=== PATIENT | female | born 1935 | race Caucasian/White ===

== ENCOUNTER → 2024-01-06 14:52 | Outpatient (REF) | payer OTHER, SELFPAY | LOC: RAD 14:52 | PROVIDERS: ATTENDING PHYSICIAN Internal Medicine Cardiovascular Disease; FAMILY PHYSICIAN Family Medicine | DX: Z79.899 Other long term (current) drug therapy (principal) | CPT/HCPCS: 71046 ==

== ENCOUNTER 2024-05-29 19:21 | Inpatient (IN) | payer OTHER, SELFPAY ==
[2024-05-29 13:32] VITALS: BP 120/56
[2024-05-29 16:21] LABS: % Immature Granulocytes 0.4 % (0-0.5); % Lymphocytes 22.8 % (20.5-51.1); % Monocytes 9.8 % (1.7-9.3); Absolute Basophils 0.1 10^3/uL (0-0.2); Absolute Eosinophils 0.1 10^3/uL (0-0.7); Absolute Lymphocytes 1.9 10^3/uL (1.2-3.4); Absolute Monocytes 0.8 10^3/uL (0.1-0.6); Absolute Neutrophils 5.4 10^3/uL (1.4-6.5); Hematocrit 40.1 % (37.0-47.0); Hemoglobin 13.5 g/dL (12.0-16.0); Mean Corp Hgb Conc. 33.7 g/dL (33.0-37.0); Mean Corpuscular Hgb 30.7 pg (27.0-31.0); Mean Corpuscular Volume 91.1 fL (81.0-99.0); Mean Platelet Volume 9.2 fL (7.4-10.4); Nucleated Red Blood Cells % 0 %; Platelet Count 278 10^3/uL (130-400); Red Cell Dist. Width 13.2 % (11.5-14.5); White Blood Cell Count 8.3 10^3/uL (4.8-10.8)
[2024-05-29 16:31] LABS: ALT (SGPT) 23 U/L (0-35); AST (SGOT) 30 U/L (14-36); Albumin 4.3 g/dl (3.5-5.0); Alkaline Phosphatase 86 U/L (38-126); Blood Urea Nitrogen 14 mg/dl (7-17); Calcium 9.4 mg/dl (8.4-10.2); Carbon Dioxide 29 mmol/L (22-30); Chloride 99 mmol/L (98-107); Estimated Creatinine Clearance 43 ml/min; Glucose 99 mg/dl (70-99); Potassium 4.6 mmol/L (3.5-5.1); Sodium 138 mmol/L (135-145); Total Bilirubin 0.6 mg/dl (0.2-1.3); Total Protein 6.8 g/dl (6.3-8.2); eGFR > 60.00
[2024-05-29 16:49] LABS: Urine Albumin Trace (Neg - Trace); Urine Bilirubin 1+ (Negative); Urine Character Clear (Clear); Urine Color Amber; Urine Glucose Negative (Negative); Urine Ketone Trace (Negative); Urine Leukocyte Trace (Negative); Urine Nitrite Negative (Negative); Urine Occult Blood Negative (Negative); Urine Specific Gravity 1.025 (<1.030); Urine Urobilinogen 2+ (Neg - 1+)
--- NOTE | 2024-05-29 17:34 | ED.GENMED ---
History of Present Illness
General
Chief Complaint: Change in Mental Status
Source: patient
Exam Limitations: none
Time Seen by Provider: 05/29/24 15:52
Nursing documentation reviewed up to this point in time: agreed with
History of Present Illness
History of Present Illness:
Patient with history of dementia, presents to ED from home, secondary to increased confusion along with poor oral intake. Patient denies headache. Denies coughing. Denies chest pain. Denies sore throat. Denies nausea, vomiting, or diarrhea.
Denies shortness of breath. Secondary to patient's worsening overall symptoms, family, has been discussing about actively pursuing long-term care assistance. Patient has not seen neurologist for some period of time, as her previous neurologist had
required COVID vaccination, which patient had refused.
Past History
Past History
ED Past Medical History: Arrthythmia and HTN
ED Past Surgical History: Gynecological and Orthopedic
Social History
Tobacco: Non-smoker
Living: with family
Employment: Retired
Review of Systems
Review of Systems
Allergies reviewed?: Yes
All Other Systems: ROS reviewed and negative except as documented in HPI and ROS
Constitutional: Reports no symptoms
EENT: Reports no symptoms
Respiratory: Reports no symptoms
Cardiac: Reports no symptoms
ABD/GI: Reports no symptoms
: Reports no symptoms
Musculoskeletal: Reports no symptoms
Skin: Reports no symptoms
Neurological: Reports weakness and other (confusion)
Phy Exam
Physical Exam
Physical Exam:
Physical Exam
General: no apparent distress, not acutely ill. afebrile
Head: nc/at. eomi
Neck: supple. no meningeal signs.
Heart: s1/s2 regular rate and rhythm, no murmur. equal radial pulses.
Lungs: no acute respiratory distress. clear bilaterally
Abdomen: normal bowel sounds. not tender
Neuro: alert and oriented x 2. no focal neurological deficits
Skin: no rash
Psychiatric: well kept. interactive and cooperative
Extremities: no edema. no calf tenderness.
Course
Orders/Labs/Results
Orders:
Orders
05/29/24 Lunch
Regular
At Your Request: Limited Participation
05/29/24 13:37
Electrocardiogram (*1) Urgent
Reason for Study: Fatigue / Weakness
Other Reason for Exam: change in mental status
05/29/24 13:38
EKG- Treatment ONCE
05/29/24 16:08
Complete Blood Count/With Diff Urgent
Comprehensive Metabolic Panel Urgent
Glycohemoglobin (HgbA1c) Urgent
Lyme Progressive Urgent
Comment: ADD ON
NT-proBNP Urgent
Comment: ADD ON
Syphilis/T. pallidum Ab Reflex Urgent
Comment: ADD ON
TSH Urgent
Comment: ADD ON
Urinalysis Reflex To Culture Urgent
Date Specimen was Collected: 05/29/24
Time Specimen was Collected: 15:53
Urine Microscopic Reflex Cult Urgent
Urine Culture Urgent
STEVEN Source: U
Specimen Description:
Date Specimen was Collected: 05/29/24
Time Specimen was Collected: 15:53
Comment: ADD ON
05/29/24 16:36
Case Management Consult ONCE
Case Management Consult: Discharge Planning
Physical Therapy Consult [Pt Eval And Treat] Urgent
Activity Level: As Tolerated
05/29/24 17:56
Add On- LAB Urgent
Tests Added?: TSH, syphilis screen, lyme screen
CT Head W/o Iv Contrast Urgent
Comment:
Reason For Exam: AMS
05/29/24 17:57
CR Chest - 2 Views Urgent
Comment:
Reason For Exam: AMS
05/29/24 18:00
0.9% Sodium Chloride 500 ml [Nss] 500 ml IV 100 mls/hr
05/29/24 18:08
Add On- LAB Routine
Tests Added?: nt-proBNP
05/29/24 18:20
COVID-19 Antigen Stat
Source: Nasal Swab
05/29/24 18:26
Admit/Transfer Patient As Directed
Co-Sign Provider:
Level of Care: Inpatient admission
Assign to:: Medical/Surgical
Physician / Group: Hospitalist
Diagnosis: Worsening dementia
Reason for Hospitalization: Worsening dementia
Expected length of stay greater than two midnights?: Yes
ELOS- Estimated Length of Stay in days: 2
I certify the patient meets the requirements for IP care: Yes
PRN Pain Medication Management As Directed
May give lesser potent ordered pain med per pt: Yes
preference::
Protocol:: Medication orders for pain may be administered in a
manner that supports deferring to patient preference
when the pt is:
- Requesting an ordered lesser potent pain medication.
Least to most potent pain medications are defined
as: acetaminophen < NSAID < tramadol < opioids
(morphine, oxycodone, hydromorphone).
- Requesting a lesser dose of the same medication IF
ORDERED.
- Requesting a less intrusive route of administration
if both routes are prescribed by the provider (PO <
IV).
05/29/24 18:30
Code Status As Directed
Resuscitation Status: Do not resuscitate
Reached after discussion with pt or family/Healthcare POA: Yes
Based on pt advanced directive or healthcare POA form: Yes
DNR Bracelet Application ONCE
05/29/24 19:51
Acetaminophen [Tylenol] 650 mg PO Q4HPRN PRN
Bisacodyl [Dulcolax] 10 mg RECTAL [id number] PRN
Docusate W/Senna [Senokot-S] 1 tablet PO BIDPRN PRN
Polyethylene Glycol Powder [Miralax] 17 grams PO DAILYPRN PRN
Tramadol HCl [Ultram] 25 mg PO Q8HPRN PRN
05/29/24 19:51
Add On - Microbiology Routine
Tests Added?: Urine culture
Add On- LAB Routine
Tests Added?: HgbA1c
Case Management Consult ONCE
Case Management Consult: Discharge Planning
PSYCHIATRY CONSULT Routine
Consulting Provider: Chaparrita Callaway
Was physician already notified: Yes
Reason for consult: hallucinations
Activity As Directed
Activity Level: Out of Bed-Early Mobility
Vital Signs As Directed
Frequency: Per unit guidelines
Ot Eval And Treat Routine
Pt Eval And Treat Routine
Activity Level: Out of Bed-Early Mobility
DX Deep Vein Thrombosis Video Routine
05/29/24 21:00
Apixaban [Eliquis] 2.5 mg PO BID
05/29/24 22:00
CefTRIAXone [Rocephin] 1,000 mg IV Q24H
05/30/24 08:00
Amiodarone [Pacerone] 100 mg PO DAILY
Metoprolol Xl [Toprol Xl] 50 mg PO DAILY
05/30/24 18:00
Atorvastatin [Lipitor] 10 mg PO QPM
Enoxaparin Sodium [Lovenox] 40 mg SC QPM
Abnormal Lab Results
05/29/24
16:08
Absolute Monos (auto) 0.8 H 10^3/uL
(0.1-0.6)
Monocytes % 9.8 H %
(1.7-9.3)
Urine Ketones Trace A
(Negative)
Urine Bilirubin 1+ A
(Negative)
Urine Urobilinogen 2+ A
(Neg - 1+)
Leukocyte Esterase Rfl Trace A
(Negative)
05/29/24 16:08
05/29/24 16:08
Vital Signs
Initial and Last Documented VS:
Initial Vital Signs
Temp Pulse Resp BP Pulse Ox
98.1 F 52 18 120/56 98
05/29/24 13:32 05/29/24 13:32 05/29/24 13:32 05/29/24 13:32 05/29/24 13:32
Last Documented Vital Signs
Temp Pulse Resp BP Pulse Ox
98.3 F 106 18 133/92 96
05/30/24 15:35 05/30/24 18:23 05/30/24 15:35 05/30/24 18:23 05/30/24 18:23
MDM/Problems Addressed
MDM/Problems Addressed:
History and exam consistent with generalized weakness with fusion, likely multifactorial, including underlying dementia as well as dehydration. Ultimately, however, patient will require transition to long-term assisted care.
*Critical Care Note
Total Time (30-74mins, 75-104mins- exclusive of procedures): Not Applicable
ED Attending Note
-
Portions of this chart may have been created with voice recognition software.� Occasional wrong word or��sound alike� substitutions may have occurred due to the inherent limitations of voice recognition software.
Discharge Plan
Departure
Patient Disposition: Admit
Date of Disposition: 05/29/24
Time of Disposition: 17:53
Admit to: Med/Surg
Presentation/result/management discussed w/ accepting MD/DO: Hospitalist
Discharge Problem:
Weakness, Dehydration
Interventions
Interventions:
*Risk Screen - Suicide Last Done: 05/29/24 16:28
*General Assessment Last Done: 05/29/24 16:28
*Neglect/Abuse Screening Last Done: 05/29/24 16:28
*ED COVID-19 Vaccine History Last Done: 05/29/24 16:28
*Nursing Disposition Last Done: 05/29/24 19:47
ED- Neurological Assessment Last Done: 05/29/24 16:26
ED Swallowing Screen Last Done: 05/29/24 16:26
Discharge Date and Time
Discharge Date/Time: 05/29/24 19:48
--- NOTE | 2024-05-29 17:37 | CM ---
CM met with patient and granddaughter in room. CM confirmed that patient lives with daughter who works multimedia programmer. Patient granddaughter further offers support. Patient's granddaughter works as at OT at [facility] and would prefer to have patient
placed in [facility] STR with transition to LTC. Granddaughter stated that she would also be agreeable to [facility]. Patient is agreeable to plan.
As per granddaughter, family has been working on applying for Medicaid and has had LTC discussions with Rochel[facility] at [facility].
CM sent referrals to [facility] and [facility].
PLAN: STR pending PT evaluation,
[2024-05-29 18:01] LABS: Urine Mucus Moderate; Urine Red Blood Cell 0-2 /HPF (0-2); Urine Squamous Cell 16-20 /LPF (Few)
[2024-05-29 18:28] VITALS: BP 164/83
--- NOTE | 2024-05-29 18:34 | HPS.HSE ---
Family Physician
-
Family Physician: Ho Olson
Chief Complaint
-
ambulatory and cognitive decline
History of Present Illness
88yo F with PMHx of afib on ELiquis, HTN, Hx of frequent falls, Hx of early onset dementia with Altzheimers demetia in mother was broguht by the family since she had generalized progressive decline with worsening ambulatory function, SOB on exertion
and worsening memory over previous months, but recently reached the point that patient started to require more assistance at home even with ambulation, that family cannot provide. Patient seen bedside, aware of her cognitive problems, cooperative
and with c/o minor SOB on exertion that continued for months now. Otherwise - no additional complains or symptoms.
Medical History
Past Medical History
Past Medical History: Reports Other
Additional Past Medical History:
see HPI
Past Surgical History: Reports None
Social History
Tobacco: Former Smoker
Alcohol: None
Drug: None
Family History
Family History: Other (early dementia in mother)
Allergies / Home Medications
Allergies reflects when Allergies were last updated in [facility].
Home Medications with original date entered in [facility]
Allergy/Medication List:
Allergies
Allergy/AdvReac Type Severity Reaction Status Date / Time
No Known Allergies Allergy Unverified 12/07/18 08:18
Home Medications -not updated at the time of admission
alendronate 70 mg tablet 70 mg PO ADAME osteoporosis 12/07/18
calcium 250 mg-magnesium 40 mg-D3 125 unit-zinc [id number] tablet (Calcium Citrate Plus) 1 tab PO DAILY Supplement 12/07/18
simvastatin 20 mg tablet 20 mg PO DAILY High cholesterol 12/07/18
amiodarone 100 mg tablet (Pacerone) 100 mg PO DAILY Arrhythmia 05/15/21
azelastine 137 mcg (0.1 %) nasal spray 1 spray intranasal BID Allergies 05/15/21
donepezil 5 mg tablet 10 mg PO HS Neurological Condition 05/15/21
multivitamin with folic acid 400 mcg tablet (Tab-A-Kristin) 1 tab PO DAILY Supplement 05/15/21
tramadol 50 mg tablet 50 mg PO Q6HPRN PRN moderate pain 05/17/21
apixaban 2.5 mg tablet (Eliquis) 2.5 mg PO BID 05/29/24
metoprolol succinate 50 mg tablet,extended release 24 hr 50 mg PO DAILY 05/29/24
Review of Systems
-
History Source: Patient
A 12 point ROS was completed and negative except as noted: Yes
Psych: Reports Calm and Dementia
Physical Exam
Vital Signs
Vital Signs
Temp Pulse Resp BP Pulse Ox
98.1 F 57 12 120/56 99
05/29/24 13:32 05/29/24 17:45 05/29/24 17:45 05/29/24 13:32 05/29/24 16:00
Physical Exam
General: No Apparent Distress
HEENT: NormoCephalic
Respiratory: Clear; No Wheezes or Rales
Cardiac: S1/S2 and Regular Rhythm
GI: Soft
Genito-urinary: No costovertebral tender
Musculoskeletal: No Clubbing, No Cyanosis and No Edema
Skin: Warm; No Dry or Jaundice
Neuro: Awake, Alert, Oriented and AO x 3
Psych: Calm
Laboratory Results
-
05/29/24 16:08
05/29/24 16:08
Laboratory Results
Total Bilirubin 0.6 mg/dl (0.2-1.3) 05/29/24 16:08
AST 30 U/L (14-36) 05/29/24 16:08
ALT 23 U/L (0-35) 05/29/24 16:08
Alkaline Phosphatase 86 U/L (38-126) 05/29/24 16:08
Data Reviewed
-
Lab Data: Labs Reviewed by me
Impression/Plan
-
A/P:
#Ambulatory dysfunction
possibly 2/2 progressive dementia
No gross neurological deficit
CM consult for rehab
#Dementia, unspecified with hallucinations
Was previously seen by neurologist prior to 2020 and managed for early onset dementia
Did not tolerate Aricept 2/2 falls
psychiatry assessment
check TSH, head CT, lyme and syphilis screen, HgbA1c
#Dyspnea on exertion
Chest XR
Echo
#HLD
#Essential HTN
#Afib, unspecified
#Osteoporosis
cont home meds
#Positive leukocyte esterase, concern for UTI
Ucx
Rocephin
DVT ppx on Lovenox
DNR/DNI (confirmed with patient and POA)
I have spent at least 79min reviewing chart, test results, communication with consultants and direct patient care
[2024-05-29 18:41] LABS: COVID-19 Antigen Negative (Negative)
[2024-05-29 18:48] LABS: NT-proBNP 926 pg/ml
[2024-05-29 19:00] VITALS: BP 140/70
[2024-05-29 19:09] LABS: TSH 2.89 uIU/ml (0.47-4.68)
[2024-05-29 19:38] VITALS: BP 129/70
[2024-05-29 19:59] VITALS: BMI 25.9
[2024-05-29 20:07] VITALS: BP 142/63
--- NOTE | 2024-05-29 20:40 | PTCARENOTE ---
Recieved patient from ED. stable vitals. AAOx2. Offers no complaints at this time. Bed alarm on for safety. POC reviewed with patient.
[2024-05-29] MEDS: ROCEPHIN 1000 MG IV (21:30)
[2024-05-29] MEDS: ELIQUIS 2.5 MG PO (21:30)
[2024-05-29] MEDS: STERILE WATER FOR INJECTION 10 ML IV (21:31)
[2024-05-29 22:28] VITALS: BMI 25.9
[2024-05-29 23:55] VITALS: BP 141/70
[2024-05-30] VITALS (8 sets, daily range): BP systolic 128–147; BP diastolic 57–96; PULSE 56–91; O2SAT 98–99
[2024-05-30 08:18] LABS: Glycohemoglobin (HgbA1c) 5.6 % (4.0-5.6)
[2024-05-30] MEDS: TOPROL XL 50 MG PO (09:12)
[2024-05-30] MEDS: PACERONE 100 MG PO (09:13)
[2024-05-30] MEDS: ELIQUIS 2.5 MG PO ×2 (09:13→21:47)
--- NOTE | 2024-05-30 10:08 | W.PN.HOSP.TC ---
Today's Communication/Plan
-
cont rocephin
CT chest and Echo pending
Assessment / Plan
Assessment / Plan
88yo F with PMHx of afib on ELiquis, SSS on PPM, HTN, Hx of frequent falls, Hx of early onset dementia with Altzheimers demetia in mother was broguht by the family since she had generalized progressive decline with worsening ambulatory function, SOB
on exertion and worsening memory over previous months. Managed for possible UTI pending Ucx and CM for placement
A/P:
#Ambulatory dysfunction
possibly 2/2 progressive dementia
No gross neurological deficit
CM consult for rehab
#Dementia, unspecified with hallucinations
Was previously seen by neurologist prior to 2020 and managed for early onset dementia
Did not tolerate Aricept 2/2 falls
psychiatry assessment
TSH WNL, head CT without acute abnormality,
lyme and syphilis screen,
HgbA1c 5.6%
#Positive leukocyte esterase, concern for UTI
Ucx pending
Rocephin
#Dyspnea on exertion
Chest XR unremarcable
Echo pending
CT chest in view of amiodarone
#HLD
#Essential HTN
#Afib, unspecified s/p PPM (rate in 50th)
#Osteoporosis
cont home meds
DVT ppx on Lovenox
DNR/DNI (confirmed with patient and POA)
I have spent at least 59min reviewing chart, test results, communication with consultants and direct patient care
Anticipated Discharge: > 48 hours
Subjective/Interval History
-
Date of Service: May 30, 2024
Objective Data
-
Vital Signs:
Vital Signs
Temp Pulse Resp BP Pulse Ox
97.7 F 53 18 147/67 97
05/30/24 07:35 05/30/24 07:35 05/30/24 07:35 05/30/24 07:35 05/30/24 07:35
I&O
05/29/24 05/30/24 05/31/24
06:59 06:59 06:59
Intake Total 200 / 200
Balance 200 / 200
Review of Systems
-
Unable to obtain full review of systems at this time due to: Dementia
History Source: Patient
All other systems: Reviewed and negative
Physical Exam
-
General: No Apparent Distress
HEENT: Normocephalic
Respiratory: Clear to Auscultation
Cardiac: Regular Rhythm
GI: Soft, Nontender and Nondistended
Musculoskeletal: No Clubbing, No Cyanosis and No Edema
Neuro: Awake, Alert, Oriented and AO x 3
Psych: Calm
--- NOTE | 2024-05-30 12:12 | CS.PSYCHR ---
Consult Summary - Psychiatry
-
Pt is 88 yo female with hx of dementia, brought in by family due to reported worsening of ambulatory dysfunction, SOB, progressive cognitive decline. Psychiatry asked to assess regarding hallucination. On interview, pt sitting up in chair, alert,
pleasant, answering questions, aware she has a memory problem. Pt states it is difficult to be more dependent on others, needs someone with her to walk. She enjoys her family, especially 2 yo granddaughter. She denies having hallucinations. Pt
is calm, with no signs of psychosis. Reviewed with nursing staff, who has not seen signs of hallucinations, not reported. No apparent problems overnight.
Psych Hx: denied, other than dementia
PMH: A fib on Eliquis, HTN, Hx of frequent falls
SH: lives with family- dtr who is a nurse, grand-dtr 2 yrs old per pt. had RA, . 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
MSE: alert, sitting up in chair, sensorium intact, pleasant, making good eye contact, answering questions. Acknowledges she has problem with her memory. Speech fluent, thought goal-directed. No signs of psychosis. No agitation. Insight fair
Imp: Dementia. No evidence of hallucinations at present. No reported agitation
Rec: No indication for psychiatric intervention at present
Psychiatry will sign off. Please re-consult for any new concerns
[2024-05-30 14:47] LABS: Syphilis/T. pallidum Ab Reflex Negative (Negative)
[2024-05-30] MEDS: LIPITOR 10 MG PO (17:21)
--- NOTE | 2024-05-30 19:24 | PTCARENOTE ---
Pt placed on tele this am to monitor rates. Pt has pacemaker, mainly paced in the 50s. This afternoon pt had 2 episodes of increased rates 140s. Tele trend reviewed with MD, Pt than paced back in 50s. Pt had no c/o pain or palpitations continues
with JAMES. Other vitals remained stable. .Later in shift pt HR consistently in the 90s-120s. EKG completed showing Afib. Pt does have hx and is anticoagulated on eliquis. Cross covering and primary MD made aware, pt continues to be pain free, vitals
remain stable continues with occasional JAEMS. Plan of care continues.
[2024-05-30] MEDS: STERILE WATER FOR INJECTION 10 ML IV (21:47)
[2024-05-30] MEDS: ROCEPHIN 1000 MG IV (21:48)
[2024-05-31] VITALS (7 sets, daily range): BP systolic 118–161; BP diastolic 59–96; PULSE 56; O2SAT 98
[2024-05-31] MEDS: PACERONE 100 MG PO (08:16)
[2024-05-31] MEDS: TOPROL XL 75 MG PO (08:16)
[2024-05-31] MEDS: ELIQUIS 2.5 MG PO ×2 (08:16→19:49)
--- NOTE | 2024-05-31 11:51 | PN.CDI ---
Addendum entered and electronically signed by Kole Renae MD 05/31/24 12:49:
Not clear since was not observed in hospital and family is not straight forward with descriptions
Original Note:
CDI
- -
CDI:
Physician Documentation Request
Admit Date: 05/29/24 19:21
Dear Doctor Oc,
Please review the following and provide your response in the progress notes.
Clinical Indicators:
- 05/29 H&P 'Dementia, unspecified with hallucinations'
- 05/30 Psych 'No evidence of hallucinations at present'
Please further specify the type of hallucinations:
Auditory hallucinations
Visual hallucinations
Other hallucinations (please specify)
Other (please specify)
Use of terms such as suspected, likely, concern for, or probable (associated with a specific diagnosis that is being evaluated, monitored, or treated as if it exists) are acceptable and can be coded in the inpatient setting, when documented at the
time of discharge.
Thank you,
Han Leach RN
CDI Specialist
Please use your independent medical judgment in providing your response.
--- NOTE | 2024-05-31 12:11 | W.PN.HOSP.TC ---
Today's Communication/Plan
-
increased BB pending cardio eval
Assessment / Plan
Assessment / Plan
88yo F with PMHx of afib on ELiquis, SSS on PPM, HTN, Hx of frequent falls, Hx of early onset dementia with Alzheimer dementia in mother was brought by the family since she had generalized progressive decline with worsening ambulatory function, SOB
on exertion and worsening memory over previous months. Managed for possible UTI and CM for placement. Developed episodes of Afib with RVR on exertion
A/P:
#Ambulatory dysfunction
possibly 2/2 progressive dementia
No gross neurological deficit
CM consult for rehab
#Afib, unspecified s/p PPM with RVR
cont rate control
Telemetry
Cardiology consult
#Dementia, unspecified with hallucinations
Was previously seen by neurologist prior to 2020 and managed for early onset dementia
Did not tolerate Aricept 2/2 falls
psychiatry assessment
TSH WNL, head CT without acute abnormality,
lyme and syphilis screen,
HgbA1c 5.6%
#Positive leukocyte esterase, concern for UTI
Ucx no growth
Rocephin reasonable to complete
#Dyspnea on exertion
Chest XR unremarkable
Echo pending
CT chest in view of amiodarone
#HLD
#Essential HTN
#Osteoporosis
cont home meds
DVT ppx on Eliquis
DNR/DNI (confirmed with patient and POA)
I have spent at least 39min reviewing chart, test results, communication with consultants and direct patient care
Anticipated Discharge: 24 - 48 hours
Subjective/Interval History
-
Date of Service: May 31, 2024
Objective Data
-
Vital Signs:
Vital Signs
Temp Pulse Resp BP Pulse Ox
97.9 F 98 18 134/75 96
05/31/24 08:14 05/31/24 08:16 05/31/24 08:14 05/31/24 08:16 05/31/24 08:14
I&O
05/30/24 05/31/24 06/01/24
06:59 06:59 06:59
Intake Total 200 / 200 680 / 680
Balance 200 / 200 680 / 680
Review of Systems
-
History Source: Patient
All other systems: Reviewed and negative
Physical Exam
-
General: No Apparent Distress
HEENT: Normocephalic
Respiratory: Clear to Auscultation
Cardiac: Irregular Rhythm
GI: Soft, Nontender and Nondistended
Skin: Warm
Neuro: Awake, Alert and Oriented
Psych: Apparent Dementia
--- NOTE | 2024-05-31 12:21 | CON.CAR ---
Addendum entered and electronically signed by Heber Llamas MD 05/31/24 15:54:
I saw and examined the patient.
The Cold Rolling Supervisor's note was reviewed and I agree with the note.
Comment: Briefly, 88-year-old woman past medical history of paroxysmal atrial fibrillation, hypertrophic cardiomyopathy, tachybradycardia syndrome status post permanent pacemaker and dementia who is presenting with worsening altered mental status
Cardiology is consulted for atrial fibrillation seen on telemetry
By my review of telemetry, has been paroxysmal while she is here, most recently in sinus bradycardia
Increase home metoprolol dosing
Cont amiodarone at 100 mg daily in an attempt to maintain sinus rhythm, could consider uptitrating in the future
Continue Eliquis for cardioembolic prophylaxis
Stable cardiac status
Plan for outpatient follow-up as scheduled
We will sign off, please recall as needed
Original Note:
Consultation
Consultation Request
Date/Time Consultation Performed: 05/31/24
Requesting Provider: Dr. Renae
Performing Provider: Marlen Pena PA-C for Dr. Llamas
Reason for Consultation: afib
Medical History
-
Chief Complaint: confusion
History of Present Illness:
Patient is an 88 yo F with PMH of PAF on chronic amiodarone and eliquis, HOCM, tachybrady syndrome s/p Medtronic PPM, HLD, AI, dementia who presented to [facility] due to concerns of family for confusion and poor oral intake. She reportedly has been
declining at home with worsening ambulatory dysfunction, and increasing levels of assistance. Lives with her daughter who is a nurse, however they were looking into assisted care assistance for patient. Cardiology consulted as patient noted to have
paroxysms of afib with elevated HRs on tele. Patient asymptomatic. She is on toprol 50mg daily, amiodarone 100mg daily, eliquis 2.5mg BID. She has history of falls on aricept.
PMH:
PAF
chronic amiodarone therapy
chronic eliquis therapy
HOCM
tachybrady syndrome s/p Medtronic PPM
HLD
AI
dementia
Past Medical History
Past Medical History: Other (in HPI)
Social History
Tobacco: Former Smoker (remote)
Living: With Family
Family History
Family History: Cancer, Diabetes and Other (CHF)
Allergies / Home Medications
Allergy/AdvReac Type Severity Reaction Status Date / Time
No Known Allergies Allergy Unverified 12/07/18 08:18
�Medication �Instructions �Recorded �Confirmed �Type
alendronate 70 mg tablet 70 mg PO ADAME osteoporosis 12/07/18 05/29/24 History
simvastatin 20 mg tablet 20 mg PO HS High cholesterol 12/07/18 05/29/24 History
amiodarone 100 mg tablet (Pacerone) 100 mg PO DAILY Arrhythmia 05/15/21 05/29/24 History
multivitamin with folic acid 400 1 tab PO DAILY Supplement 05/15/21 05/29/24 History
mcg tablet (Tab-A-Kristin)
acetaminophen 325 mg tablet 650 mg PO Q6HPRN PRN fever/mild 05/29/24 05/29/24 History
(Tylenol) pain
apixaban 2.5 mg tablet (Eliquis) 2.5 mg PO BID Blood Clot 05/29/24 05/29/24 History
Prevention/Tx
calcium 400 mg 1 tab PO DAILY Supplement 05/29/24 05/29/24 History
(carbonate)-magnesium 167 mg
(oxide)-D3 133 unit tablet
(Calcium Magnesium plus D)
metoprolol succinate 50 mg 50 mg PO DAILY Heart 05/29/24 05/29/24 History
tablet,extended release 24 hr Disease/Condition
Review of Systems
-
History Source: Patient
All other systems: Negative unless noted
Physical Exam
Vital Signs
Temp Pulse Resp BP Pulse Ox
98.1 F 58 20 157/69 96
05/31/24 12:00 05/31/24 12:00 05/31/24 12:00 05/31/24 12:00 05/31/24 12:00
Lab Results
05/29/24 16:08
05/29/24 16:08
Fgv-B-Evelbanaoqs Pept 926 pg/ml 05/29/24 16:08
Physical Exam
General: No Apparent Distress, Comfortable and Other (pleasantly confused at times)
HEENT: Normocephalic, Anicteric and Moist Mucous Membranes
Respiratory: Clear and Non Labored Respirations
Cardiac: S1/S2 and Regular Rhythm
GI: Soft, Non Tender, Non Distended and Normal Bowel Sounds
Musculoskeletal: No Clubbing, No Cyanosis and No Edema
Skin: Warm and Dry
Neuro: Awake, Alert and Oriented (to self, , place (knows not at home))
Impression / Plan
-
Primary Entry Level Accountant: previously Dr. Meehan, scheduled to see Dr. Kaur 07/2024
Assessment:
Presentation with confusion, ambulatory dysfunction
Concern for UTI
PAF
chronic amiodarone therapy
chronic eliquis therapy
HOCM
LAFB/LVH
tachybrady syndrome s/p Medtronic PPM
HLD
AI
dementia
DNR code status
ECHO 01/2019: EF 55 to 60%, normal RV and LV function, mild AI, mild MR, mild TR
ECHO 05/30/2024: EF 60 to 65%, stage II diastolic dysfunction, mild to moderate MR, mild to moderate AR, moderate to severe TR, PAP 36 mmHg, mildly dilated RA
Plan:
-Patient presents with worsening confusion and ambulatory dysfunction in the setting of known dementia. Primary service ruling out UTI. She is reportedly cleared then when she initially came to the ER.
-Cardiology consulted as overnight patient noted to have several paroxysms of A-fib. Presently back in sinus rhythm.
-reviewed records from Dr. Meehan, primary multimedia programmer
-also discussed with patient's daughter Angy via telephone for 3:22. she relays that she is frequently in and out of afib, however does not feel it so has been conservatively managed. patient's amiodarone was decreased to 100mg daily due to the
possible tank terminal gauger side effects of the medication, but none that the patient was exhibiting
-Toprol was increased from 50 mg daily to 75 mg daily per primary service
-Would consider increasing amiodarone dose from 100 mg daily to 200 mg daily if able- QTc noted to be mildly prolonged by EKGs this admission. Of note patient does have pacemaker in place
-will interrogate pacemaker
-Last echo from 2018 with results as above. Echo 05/30 with results as above.
-proBNP 926. Chest CT negative for acute cardiopulmonary process
-Continue Eliquis 2.5mg BID
-CM following to assess for needs upon DC, was living with daughter prior to admission
-d/w nursing
Data Reviewed
-
EKG: Tracing Personally Visualized and interpreted
CT Scan: Report Reviewed by me
Medical Tests (Nuc Med, Echo etc): Report Reviewed by me
Labs: Labs Reviewed by me
Old Records: Reviewed
[2024-05-31] MEDS: LIPITOR 10 MG PO (17:19)
[2024-05-31] MEDS: ROCEPHIN 1000 MG IV (21:00)
[2024-05-31 21:09] LABS: Glucose - Point of Care 93 mg/dl (70-99)
[2024-05-31] MEDS: STERILE WATER FOR INJECTION IV (23:28)
[2024-06-01 03:22] VITALS: BP 138/79
[2024-06-01 07:59] VITALS: BP 158/64
--- NOTE | 2024-06-01 09:03 | W.PN.HOSP.TC ---
Today's Communication/Plan
-
cardio follow up
Assessment / Plan
Assessment / Plan
88yo F with PMHx of afib on ELiquis, SSS on PPM, HTN, Hx of frequent falls, Hx of early onset dementia with Alzheimer dementia in mother was brought by the family since she had generalized progressive decline with worsening ambulatory function, SOB
on exertion and worsening memory over previous months. Managed for possible UTI and CM for placement. Developed episodes of Afib with RVR on exertion
A/P:
#Ambulatory dysfunction
possibly 2/2 progressive dementia
No gross neurological deficit
CM consult for rehab
#Afib, unspecified s/p PPM with RVR
cont rate control
Telemetry
Cardiology consult: plan for PPM interrogation
Increased dose of BB - patient now does not feel any SOB on Exertion
#Dementia, unspecified with hallucinations
Was previously seen by neurologist prior to 2020 and managed for early onset dementia
Did not tolerate Aricept 2/2 falls
psychiatry assessment: no need in meds
TSH WNL, head CT without acute abnormality,
lyme screen pending
syphilis screen neg
HgbA1c 5.6%
#Positive leukocyte esterase, concern for UTI
Ucx no growth
Rocephin reasonable to stop after 3 days
#Dyspnea on exertion
Chest XR unremarkable
Echo pending
CT chest in view of amiodarone: no signs of ILD
#HLD
#Essential HTN
#Osteoporosis
cont home meds
DVT ppx on Eliquis
DNR/DNI (confirmed with patient and POA)
I have spent at least 39min reviewing chart, test results, communication with consultants and direct patient care
Anticipated Discharge: 24 - 48 hours
Subjective/Interval History
-
Date of Service: June 01, 2024
Objective Data
-
Vital Signs:
Vital Signs
Temp Pulse Resp BP Pulse Ox
97.5 F 58 18 158/64 97
06/01/24 07:59 06/01/24 07:59 06/01/24 07:59 06/01/24 07:59 06/01/24 07:59
I&O
05/31/24 06/01/24 06/02/24
06:59 06:59 06:59
Intake Total 680 / 680 1680 / 1680
Balance 680 / 680 1680 / 1680
Review of Systems
-
History Source: Patient
All other systems: Reviewed and negative
Physical Exam
-
General: No Apparent Distress and Comfortable
Respiratory: Clear to Auscultation
GI: Soft, Nontender and Nondistended
Musculoskeletal: No Clubbing, No Cyanosis and No Edema
Neuro: Awake, Alert, Oriented and AO x 3
Psych: Calm and Apparent Dementia
[2024-06-01] MEDS: PACERONE 100 MG PO (09:24)
[2024-06-01] MEDS: ELIQUIS 2.5 MG PO ×2 (09:24→20:48)
[2024-06-01] MEDS: TOPROL XL 75 MG PO (09:25)
[2024-06-01 11:54] VITALS: BP 116/78
[2024-06-01 13:35] LABS: Lyme Antibody Screen, EIA Negative (Negative)
[2024-06-01 15:37] VITALS: BP 119/78
[2024-06-01] MEDS: LIPITOR 10 MG PO (18:19)
[2024-06-01 19:00] VITALS: BP 122/83
[2024-06-01 23:00] VITALS: BP 139/81
[2024-06-02] VITALS (7 sets, daily range): BP systolic 106–172; BP diastolic 58–83; BMI 25.6
[2024-06-02] MEDS: PACERONE 100 MG PO (08:01)
[2024-06-02] MEDS: ELIQUIS 2.5 MG PO ×2 (08:01→19:49)
[2024-06-02] MEDS: TOPROL XL 75 MG PO (08:02)
--- NOTE | 2024-06-02 11:01 | W.PN.HOSP.TC ---
Today's Communication/Plan
-
medically stable for D?C pending CM for possible placement vs home
Assessment / Plan
Assessment / Plan
88yo F with PMHx of afib on ELiquis, SSS on PPM, HTN, Hx of frequent falls, Hx of early onset dementia with Alzheimer dementia in mother was brought by the family since she had generalized progressive decline with worsening ambulatory function, SOB
on exertion and worsening memory over previous months. Managed for possible UTI and CM for placement. Developed episodes of Afib with RVR. Cardiology evaluated and recommended uptitration in [place] if still persistent, however HR became well
controlled on BB. Medically stable for d/c, family requested placement. CM aware and working on options. PT/OT did not recommend rehab, so can be a challenging
A/P:
#Ambulatory dysfunction
possibly 2/2 progressive dementia
No gross neurological deficit
CM consult for rehab
#Afib, unspecified s/p PPM with RVR
cont rate control
Telemetry
Cardiology consult: plan for PPM interrogation
Increased dose of BB - patient now does not feel any SOB on Exertion
#Dementia, unspecified with hallucinations
Was previously seen by neurologist prior to 2020 and managed for early onset dementia
Did not tolerate Aricept 2/2 falls
psychiatry assessment: no need in meds
TSH WNL, head CT without acute abnormality,
lyme screen neg
syphilis screen neg
HgbA1c 5.6%
#Positive leukocyte esterase, concern for UTI
Ucx no growth
Rocephin reasonable to stop after 3 days
#Dyspnea on exertion
Chest XR unremarkable
Echo pending
CT chest in view of amiodarone: no signs of ILD
#HLD
#Essential HTN
#Osteoporosis
cont home meds
DVT ppx on Eliquis
DNR/DNI (confirmed with patient and POA)
I have spent at least 39min reviewing chart, test results, communication with consultants and direct patient care
Anticipated Discharge: Within 24 hours
Subjective/Interval History
-
Date of Service: June 02, 2024
Objective Data
-
Vital Signs:
Vital Signs
Temp Pulse Resp BP Pulse Ox
97.9 F 64 18 143/69 98
06/02/24 08:09 06/02/24 08:09 06/02/24 08:09 06/02/24 08:09 06/02/24 08:09
I&O
06/01/24 06/02/24 06/03/24
06:59 06:59 06:59
Intake Total 1680 / 1680 480 / 480
Balance 1680 / 1680 480 / 480
Review of Systems
-
History Source: Patient
All other systems: Reviewed and negative
Physical Exam
-
General: No Apparent Distress
HEENT: Normocephalic
Cardiac: Regular Rhythm
GI: Soft, Nontender and Nondistended
Musculoskeletal: No Clubbing, No Cyanosis and No Edema
Neuro: Awake, Alert, Oriented and AO x 3
Psych: Apparent Dementia
--- NOTE | 2024-06-02 11:28 | CM ---
Addendum entered by Rebecca Castillo 06/02/24 13:11:
contacted by Dr. Chavez of [facility] who advised that SNF transfer is denied. Peer to Peer phOne number [phone]; Reference# [id number]
Information sent to [facility] Dr. Lo to consider appeal. will notify pt's granddaughter when final status is known.
Rochelle Frazier notified of above. Bed will be available for transfer to [facility] 3rd floor 06/02/2024 (tomorrow) with or without SNF approval.
CM to call [employer] and ask for the nursing supervisor hot strip mill to coordinate transfer.
[facility] Report: [phone]
[facility] FAX: [phone]
Original Note:
CM contacted by pt's daughter and granddaughter regarding discharge plans. Pt has been (S) for stairs and self care. Unable to complete a tub transfer without assistance. Family requesting SNF transfer to [facility]. Her granddaughter works in OT
at [employer].
PT recommendation for discharge to home. OT recommends SNF with goals of (S) for UE ADLs, LE ADLs, and toilet transfer.
CM contacted [facility] and spoke with Becka to request SNF authorization. Case to be sent to the [employer] for review, as per [facility] reviewer, pt's PT and OT capabilities exceed the SNF level of care requirements.
CM to follow for [employer] determination.
--- NOTE | 2024-06-02 16:00 | PTCARENOTE ---
Pt flipped back into Afib rates 90-110s, continues to be asymptomatic, VSS, Primary MD made aware, plan of care continues,
[2024-06-02] MEDS: LIPITOR 10 MG PO (18:08)
[2024-06-03 03:45] VITALS: BP 123/62
[2024-06-03 06:12] VITALS: BMI 25.5
[2024-06-03 07:55] VITALS: BP 144/75
--- NOTE | 2024-06-03 08:00 | W.PN.HOSP.TC ---
Today's Communication/Plan
-
dc
Assessment / Plan
Assessment / Plan
88yo F with PMHx of afib on ELiquis, SSS on PPM, HTN, Hx of frequent falls, Hx of early onset dementia with Alzheimer dementia in mother was brought by the family since she had generalized progressive decline with worsening ambulatory function, SOB
on exertion and worsening memory over previous months. Managed for possible UTI and CM for placement. Developed episodes of Afib with RVR. Cardiology evaluated and recommended uptitration in [place] and BB. Medically stable for d/c
A/P:
#Ambulatory dysfunction
possibly 2/2 progressive dementia
No gross neurological deficit
CM consult for rehab
#Afib, unspecified s/p PPM with RVR
cont rate control
Telemetry
Cardiology consult: plan for PPM interrogation
Increased dose of BB - patient now does not feel any SOB on Exertion
#Dementia, unspecified with hallucinations
Was previously seen by neurologist prior to 2020 and managed for early onset dementia
Did not tolerate Aricept 2/2 falls
psychiatry assessment: no need in meds
TSH WNL, head CT without acute abnormality,
lyme screen neg
syphilis screen neg
HgbA1c 5.6%
#Positive leukocyte esterase, concern for UTI
Ucx no growth
Rocephin reasonable to stop after 3 days
#Dyspnea on exertion
Chest XR unremarkable
Echo pending
CT chest in view of amiodarone: no signs of ILD
#HLD
#Essential HTN
#Osteoporosis
cont home meds
DVT ppx on Eliquis
DNR/DNI (confirmed with patient and POA)
I have spent at least 39min reviewing chart, test results, communication with consultants and direct patient care
Anticipated Discharge: Today
Subjective/Interval History
-
Date of Service: June 03, 2024
Objective Data
-
Vital Signs:
Vital Signs
Temp Pulse Resp BP Pulse Ox
97.7 F 77 18 123/62 96
06/03/24 03:45 06/03/24 03:45 06/03/24 03:45 06/03/24 03:45 06/03/24 03:45
I&O
06/02/24 06/03/24 06/04/24
06:59 06:59 05:59
Intake Total 480 / 480 780 / 780
Balance 480 / 480 780 / 780
Review of Systems
-
Unable to obtain full review of systems at this time due to: Dementia
History Source: Patient
All other systems: Reviewed and negative
Physical Exam
-
General: No Apparent Distress
Respiratory: Clear to Auscultation
Cardiac: Irregular Rhythm
GI: Soft, Nontender and Nondistended
Musculoskeletal: No Clubbing, No Cyanosis and No Edema
Neuro: Awake, Alert and Oriented
Psych: Calm and Apparent Dementia
--- NOTE | 2024-06-03 08:07 | W.DCSUMMARY ---
Discharge Summary
Discharge Data
Date of Admission: 05/29/24
Date of Discharge: 06/03/24
-
Pending Results: No
Hospital Course
88yo F with PMHx of afib on ELiquis, SSS on PPM, HTN, Hx of frequent falls, Hx of early onset dementia with Alzheimer dementia in mother was brought by the family since she had generalized progressive decline with worsening ambulatory function, SOB
on exertion and worsening memory over previous months. Managed for possible UTI and CM for placement. Developed episodes of Afib with RVR. Cardiology evaluated and recommended uptitration in [place] as addition to increased BB. Patient will need close
follow up with cup setter lockstitch upon d/c. Medically stable for d/c, family requested placement, rehab is available as per family on 06/03/24.
I have spent at least 37min preparing discharge. Left VM for daughter
A/P:
#Ambulatory dysfunction
#Afib, unspecified s/p PPM with RVR
#Dementia, unspecified with hallucinations
#Positive leukocyte esterase, concern for UTI
#Dyspnea on exertion
#HLD
#Essential HTN
#Chronic compression Fx T11 and L1 most likely 2/2 osteoporosis
Discharge Plan
-
Patient Disposition: Senior Care/SNF
Discharge Diagnosis/Procedures: Dementia
Diet: Low Cholesterol
Activity: As tolerated
Driving Restrictions: As prior to admission
Referrals:
Heber Llamas MD [Active] - in one to two weeks (for Afib control mgmt)
Ho Olson DO [Family Provider] -
Prescriptions:
New
acetaminophen 325 mg Tablet
650 mg PO Q4HPRN PRN (Reason: mild pain/BAH/temp> 100.4F) Qty: 60 0RF
polyethylene glycol 3350 [HealthyLax] 17 gram Powder In Packet
17 g PO DAILYPRN PRN (Reason: constipation) Qty: 30 0RF
metoprolol succinate 50 mg Tablet Extended Release 24 Hr
75 mg PO DAILY Qty: 60 0RF
tramadol 50 mg Tablet
25 mg PO Q8HPRN PRN (Reason: moderate pain) Qty: 9 0RF
amiodarone [Pacerone] 100 mg Tablet
200 mg PO DAILY Qty: 60 0RF
Continued
alendronate 70 MG tablet
70 mg PO ADAME
simvastatin 20 MG tablet
20 mg PO HS
multivitamin with folic acid [Tab-A-Kristin] 1 TABLET tablet
1 tab PO DAILY
Eliquis 2.5 mg Tablet
2.5 mg PO BID
acetaminophen [Tylenol] 325 mg Tablet
650 mg PO Q6HPRN PRN (Reason: fever/mild pain)
Calcium Magnesium plus D 400-167-133 mg-mg-unit Tablet
1 tab PO DAILY
Discontinued
amiodarone [Pacerone] 100 MG tablet
100 mg PO DAILY
metoprolol succinate 50 mg Tablet Extended Release 24 Hr
50 mg PO DAILY
Discharge Orders:
Discharge Patient (As Directed); Ordered 06/03/24
Ordered By: Kole Renae
Discharge Date and Time
Print Language: AUSTRIAN
[2024-06-03] MEDS: ELIQUIS 2.5 MG PO (08:34)
[2024-06-03] MEDS: TOPROL XL 75 MG PO (08:34)
[2024-06-03] MEDS: PACERONE 200 MG PO (08:35)
--- NOTE | 2024-06-03 11:04 | CM ---
CM following re: discharge planning.
Reviewed pt' chart, met with pt and spoke to pt's daughter Angy over the phone.
Discharge order noted. Both pt and her daughter are aware, expressed their agreement and pt's daughter stated she will transport her mother to [facility]. IMM reviewed, placed on chart, pt has a copy. Pt's daughter stated she will transport her
mother to [facility] at 12:00 p.m.
CM spoke to [facility] nursing supervisor dry cleaning Kulwinder and she confirmed that pt is accepted for admission today to room # 309 without a result from peer to peer review outcome.
[facility] Nursing Report: [phone] or [phone]
[facility] FAX: [phone]
D/C plan: [facility]. Daughter to transport.
[2024-06-03 11:50] VITALS: BP 132/63
== END 2024-06-03 13:05 | DRG 884 ==
LOC: 4 EAST ACU 19:21
PROVIDERS: ADMITTING PHYSICIAN Internal Medicine; CONSULT PHYSICIAN Internal Medicine Cardiovascular Disease; EMERGENCY PHYSICIAN Emergency Medicine; FAMILY PHYSICIAN Family Medicine; OTHER PHYSICIAN Psychiatry & Neurology Psychiatry
DX: F03.92 Unspecified dementia, unspecified severity, with psychotic disturbance (principal); M80.08XA Age-related osteoporosis with current pathological fracture, vertebra(e), initial encounter for fracture; N39.0 Urinary tract infection, site not specified; I42.1 Obstructive hypertrophic cardiomyopathy; I48.0 Paroxysmal atrial fibrillation; R26.2 Difficulty in walking, not elsewhere classified; I50.9 Heart failure, unspecified; E78.00 Pure hypercholesterolemia, unspecified; I11.0 Hypertensive heart disease with heart failure; Z66 Do not resuscitate; Z95.0 Presence of cardiac pacemaker; Z82.49 Family history of ischemic heart disease and other diseases of the circulatory system
CPT/HCPCS: 70450; 71046; 71250; 80053; 81003; 81015; 82962; 83036; 83880; 84443; 85025; 86618; 86780; 87086; 87811; 93005; 93306; 97116; 97163; 97165; 97530; 97535; 99285

== ENCOUNTER → 2024-06-14 11:28 | Outpatient (REF) | payer MEDICARE, SELFPAY ==
[2024-06-14 12:04] LABS: % Basophils 1.4 % (0-2); % Eosinophils 2.3 % (0-6); % Immature Granulocytes 0.3 % (0-0.5); % Monocytes 11.4 % (1.7-9.3); % Neutrophils 61.6 % (42.2-75.2); Absolute Basophils 0.1 10^3/uL (0-0.2); Absolute Eosinophils 0.2 10^3/uL (0-0.7); Absolute Lymphocytes 1.5 10^3/uL (1.2-3.4); Absolute Monocytes 0.8 10^3/uL (0.1-0.6); Absolute Neutrophils 4.1 10^3/uL (1.4-6.5); Hematocrit 37.9 % (37.0-47.0); Hemoglobin 12.8 g/dL (12.0-16.0); Mean Corp Hgb Conc. 33.8 g/dL (33.0-37.0); Mean Corpuscular Volume 91.8 fL (81.0-99.0); Nucleated Red Blood Cells % 0 %; Platelet Count 262 10^3/uL (130-400); Red Blood Cell Count 4.13 10^6/uL (4.20-5.40); Red Cell Dist. Width 13.4 % (11.5-14.5); White Blood Cell Count 6.6 10^3/uL (4.8-10.8)
[2024-06-14 13:00] LABS: TSH 2.57 uIU/ml (0.47-4.68)
[2024-06-14 13:37] LABS: ALT (SGPT) 20 U/L (0-35); AST (SGOT) 26 U/L (14-36); Albumin 3.5 g/dl (3.5-5.0); Alkaline Phosphatase 72 U/L (38-126); Blood Urea Nitrogen 13 mg/dl (7-17); Calcium 8.8 mg/dl (8.4-10.2); Carbon Dioxide 24 mmol/L (22-30); Chloride 106 mmol/L (98-107); Glucose 91 mg/dl (70-99); Potassium 4.2 mmol/L (3.5-5.1); Sodium 137 mmol/L (135-145); Total Bilirubin 0.7 mg/dl (0.2-1.3); Total Protein 5.7 g/dl (6.3-8.2); eGFR > 60.00
== END ==
LOC: OLABP 11:28
PROVIDERS: ATTENDING PHYSICIAN Family Medicine
DX: I49.5 Sick sinus syndrome (principal); Z95.0 Presence of cardiac pacemaker; I48.0 Paroxysmal atrial fibrillation; E78.5 Hyperlipidemia, unspecified; I10 Essential (primary) hypertension; M81.0 Age-related osteoporosis without current pathological fracture; R29.6 Repeated falls; F03.90 Unspecified dementia, unspecified severity, without behavioral disturbance, psychotic disturbance, mood disturbance, and anxiety; R26.2 Difficulty in walking, not elsewhere classified; M62.81 Muscle weakness (generalized); R06.09 Other forms of dyspnea
CPT/HCPCS: 36415; 80053; 84439; 84443; 85025

== ENCOUNTER 2024-08-31 22:39 | Inpatient (IN) | payer OTHER, SELFPAY ==
[2024-08-31] VITALS (8 sets, daily range): BP systolic 102–145; BP diastolic 66–92; BMI 27.2
--- NOTE | 2024-08-31 18:16 | ED.GENMED ---
History of Present Illness
General
Chief Complaint: Fall
Source: patient
Exam Limitations: dementia
Time Seen by Provider: 08/31/24 17:55
Nursing documentation reviewed up to this point in time: agreed with
History of Present Illness
History of Present Illness:
Patient is a 88-year-old female with history of atrial fibrillation on Eliquis, hypertension presenting to the emergency department for evaluation following unwitnessed fall. Patient unable to contribute much to history given dementia. Did contact
nursing facility staff who states that around 4:30 PM patient was found on the ground in her bathroom. She was conscious at the time. There is unknown if there was head strike or loss of consciousness. They state the patient seen more confused
than her baseline. They do note that there is a current influenza and RSV outbreak in the senior care.
Patient denies any specific complaints including headache, chest pain, shortness of breath. No extremity injuries, numbness/tingling, or weakness.
Patient does take Eliquis.
Past History
Past History
ED Past Medical History: Arrthythmia and HTN
ED Past Surgical History: Gynecological and Orthopedic
Social History
Tobacco: Non-smoker
Living: with family
Employment: Retired
Review of Systems
Review of Systems
Allergies reviewed?: Yes
Unable to obtain full review of systems at this time due to: dementia
Phy Exam
Physical Exam
Physical Exam:
GENERAL: No acute distress
HEENT: atraumatic, extraocular muscles intact, no signs of entrapment, dentition intact, no other obvious trauma
NECK: no midline tenderness, normal range of motion, no other obvious trauma
BACK: no midline tenderness, no other obvious trauma
CHEST: no tenderness, no flail segment, no subcutaneous emphysema, no other obvious trauma
LUNGS: clear to auscultation bilaterally
CARDIOVASCULAR: Irregularly irregular rhythm
ABDOMEN: soft, non-tender, no masses, no other obvious trauma
PELVIS: stable, no obvious injury
EXTREMITIES: moving all extremities, no pain with internal/external rotation of bilateral hips, distal pulses intact, no other obvious trauma
NEUROLOGIC: awake, alert x 3, no focal deficits, fluid speech, no facial droop or asymmetry, strength 5 out of 5 in upper and lower extremities
Course
Orders/Labs/Results
Orders:
Orders
08/31/24 18:15
CT Head W/o Iv Contrast Urgent
Comment:
Reason For Exam: uniwtnessed fall on eliquis
Cervical Spine wo Contrast CT [CT Cervical Spine W/o Iv Contr] Urgent
Comment:
Reason For Exam: unwitnessed fall on eliquis
08/31/24 18:16
Electrocardiogram (*1) Urgent
Reason for Study: Fatigue / Weakness
EKG- Treatment ONCE
08/31/24 18:21
pacemaker [Interrogate Pacemaker- Treatment] ONCE
08/31/24 19:12
COVID-19 Antigen Urgent
Source: Nasal Swab
Complete Blood Count/With Diff Urgent
Comprehensive Metabolic Panel Urgent
Magnesium Urgent
Comment: ADD ON
Osmolality, Random Urine Urgent
Date Specimen was Collected: 08/31/24
Time Specimen was Collected: 18:37
Comment: ADD ON
Serum Osmolality Urgent
Comment: ADD ON
Total CK [Creatine Phosphokinase] Urgent
Urinalysis Reflex To Culture Urgent
Date Specimen was Collected: 08/31/24
Time Specimen was Collected: 18:37
Urine Microscopic Reflex Cult Urgent
Urine Sodium Urgent
Date Specimen was Collected: 08/31/24
Time Specimen was Collected: 18:37
Comment: ADD ON
Influenza A+B Rapid Molecular Urgent
STEVEN Source: Nasal Swab
Specimen Description:
RSV [Respiratory Syncytial Virus] Urgent
STEVEN Source: Nasal Swab
Specimen Description:
Date Specimen was Collected: 08/31/24
Time Specimen was Collected: 19:07
Urine Culture Urgent
STEVEN Source: U
Specimen Description:
Date Specimen was Collected: 08/31/24
Time Specimen was Collected: 18:37
08/31/24 20:07
Add On- LAB Urgent
Tests Added?: ionized calcium, magnesium
08/31/24 20:46
0.9% Sodium Chloride 1000 ml [Nss] 1,000 ml IV BOLUS
Acetaminophen [Tylenol] 650 mg PO NOW STA
08/31/24 21:02
Ionized Calcium Urgent
Comment: MUST BE COLLECTED. GREEN TOP ON ICE.
08/31/24 21:03
Add On- LAB Urgent
Tests Added?: urine osmolality, urine sodium, serum osmolality
08/31/24 21:04
CefTRIAXone [Rocephin] 1,000 mg IV NOW STA
Oseltamivir Phosphate [Tamiflu] 75 mg PO NOW STA
08/31/24 22:13
Admit/Transfer Patient As Directed
Co-Sign Provider:
Level of Care: Inpatient admission
Assign to:: Telemetry
Physician / Group: [email or web address]
Diagnosis: UTI
Reason for Telemetry: Arrhythmia
Date to Stop Telemetry: 09/03/24
Time to Stop Telemetry: 11:00
Reason for Hospitalization: UTi
Influenza A
Expected length of stay greater than two midnights?: Yes
ELOS- Estimated Length of Stay in days: 3
I certify the patient meets the requirements for IP care: Yes
PRN Pain Medication Management As Directed
May give lesser potent ordered pain med per pt: Yes
preference::
Protocol:: Medication orders for pain may be administered in a
manner that supports deferring to patient preference
when the pt is:
- Requesting an ordered lesser potent pain medication.
Least to most potent pain medications are defined
as: acetaminophen < NSAID < tramadol < opioids
(morphine, oxycodone, hydromorphone).
- Requesting a lesser dose of the same medication IF
ORDERED.
- Requesting a less intrusive route of administration
if both routes are prescribed by the provider (PO <
IV).
08/31/24 22:14
Code Status As Directed
Resuscitation Status: Full Code
09/03/24 11:00
DC Protocol for Telemetry ONCE
Abnormal Lab Results
08/31/24 08/31/24
19:12 21:02
Absolute Neuts (auto) 7.0 H 10^3/uL
(1.4-6.5)
Absolute Lymphs (auto) 0.9 L 10^3/uL
(1.2-3.4)
Absolute Monos (auto) 0.8 H 10^3/uL
(0.1-0.6)
Neutrophils % 79.5 H %
(42.2-75.2)
Lymphocytes % 10.1 L %
(20.5-51.1)
Monocytes % 9.4 H %
(1.7-9.3)
Sodium 127 L mmol/L
(135-145)
Chloride 93 L mmol/L
(98-107)
Glucose 103 H mg/dl
(70-99)
Serum Osmolality 268 L mOsm/kg
(275-300)
Calcium 8.0 L mg/dl
(8.4-10.2)
Ionized Calcium 0.94 L mMOL/L
(1.15-1.33)
AST 46 H U/L
(14-36)
Creatine Kinase 179 H U/L
(30-135)
Total Protein 6.2 L g/dl
(6.3-8.2)
Urine Ketones 2+ A
(Negative)
Ur Occult Blood Reflex 2+ A
(Negative)
Urine Nitrite (Reflex) Positive A
(Negative)
Leukocyte Esterase Rfl 3+ A
(Negative)
Urine RBC 7-10 A /HPF
(0-2)
Urine WBC (Reflex) >100 A /HPF
(0-5)
Urine Bacteria (Reflex) Many A
(Negative)
Urine Albumin (Reflex) 2+ A
(Neg - Trace)
08/31/24 19:12
08/31/24 19:12
Vital Signs
Initial and Last Documented VS:
Initial Vital Signs
BP
109/73
08/31/24 17:44
Last Documented Vital Signs
Temp Pulse Resp BP Pulse Ox
102.8 F H 89 20 103/75 93
08/31/24 20:38 08/31/24 22:15 08/31/24 22:15 08/31/24 22:00 08/31/24 22:15
MDM/Problems Addressed
Differential Diagnosis Includes:
Not limited to: Viral illness, acute dehydration, syncopal event, cardiac arrhythmia, UTI, CVA, etc.
MDM/Problems Addressed:
88-year-old female with history as documented on Eliquis presenting following unwitnessed fall. Unknown head strike or loss of consciousness. Unknown how long patient was on ground. Per nursing facility�patient appeared more confused than her
baseline. Patient denies any specific complaints. Patient has stable vital signs on arrival. Physical exam as above. No evidence of head or neck trauma. Patient is in rate controlled A-fib with clear lungs bilaterally. No evidence of upper or
lower extremity injuries. No focal neurologic deficits noted. Patient is fluid speech. She has no facial droop or asymmetry. Given possible increasing confusion along with unknown time patient was down�will check basic lab work and CK.
Ultimately�low suspicion for central process. Increased confusion possibly secondary to electrolyte imbalance, infection, dementia etc. Will check urinalysis. Will check viral swabs, as well. CT head/cervical spine. Will interrogate pacemaker.
Update: Labs reviewed. Patient found to be hyponatremic with a sodium of 127 which does appear down from her baseline. Also mild hypocalcemia noted. Urine appears infected with greater than 100 WBCs, 3+ leukocyte esterase, positive for nitrate.
Patient also found to be influenza A positive. CT head/cervical spine without acute abnormalities. Ultimately�suspect increased infusion likely secondary to UTI and influenza A. Although possibly related to symptomatic hyponatremia. Low
suspicion for central process. Will admit patient for IV Rocephin for UTI, IV fluids, and further management. Will give Tamiflu. Patient excepted to hospitalist service in stable condition. Case discussed with attending physician.
Chronic conditions affecting care:
Dementia, atrial fibrillation on Eliquis, hypertension
Acute Exacerbation and/or Progression of Chronic Illness:
Acute UTI
*Radiology
Radiology exam reviewed: radiology read reviewed
*Pulse Oximetry
Patient hypoxic: no
*EKG
Interpreted by ED Provider?: Yes
EKG Intrepretation Date: 08/31/24
Interpretation: abnormal
Comparison EKG: no changes
Heart Rate: 94
Rate: normal
Rhythm: a-fib
Interval: long QT
QRS Pattern: left vent hypertrophy
Ischemia: non-specific ST changes
*Advanced Practice Psychiatric Nurse Interpretation
Rate: normal
Interpretation: abnormal
Heart Rate: 96
Rhythm: a-fib
*Critical Care Note
Total Time (30-74mins, 75-104mins- exclusive of procedures): Not Applicable
Patient Management
Discussion with other providers: Hospitalist
Escalation/DeEscalation of care consider admission/obs:
Admit for IV antibiotics, further evaluation/management started to
ED Attending Note
-
Portions of this chart may have been created with voice recognition software.� Occasional wrong word or��sound alike� substitutions may have occurred due to the inherent limitations of voice recognition software.
Discharge Plan
Departure
Patient Disposition: Admit
Date of Disposition: 08/31/24
Time of Disposition: 21:33
Presentation/result/management discussed w/ accepting MD/DO: Hospitalist
Discharge Problem:
Acute UTI, Influenza, Acute hyponatremia, Altered mental status
Interventions
Interventions:
*Risk Screen - Suicide Last Done: 08/31/24 17:45
*General Assessment Last Done: 08/31/24 17:45
*Neglect/Abuse Screening Last Done: 08/31/24 17:45
ED- Fall Risk Assessment Last Done: 08/31/24 17:45
*ED COVID-19 Vaccine History Last Done: 08/31/24 17:45
ED-Musculoskeletal Assessment Last Done: 08/31/24 17:52
ED- Neurological Assessment Last Done: 08/31/24 17:50
ED-Skin Assessment Last Done: 08/31/24 17:52
[2024-08-31 19:33] LABS: % Basophils 0.7 % (0-2); % Immature Granulocytes 0.3 % (0-0.5); % Lymphocytes 10.1 % (20.5-51.1); % Monocytes 9.4 % (1.7-9.3); % Neutrophils 79.5 % (42.2-75.2); Absolute Basophils 0.1 10^3/uL (0-0.2); Absolute Lymphocytes 0.9 10^3/uL (1.2-3.4); Absolute Monocytes 0.8 10^3/uL (0.1-0.6); Hemoglobin 13.1 g/dL (12.0-16.0); Mean Corp Hgb Conc. 33.6 g/dL (33.0-37.0); Mean Corpuscular Hgb 30.9 pg (27.0-31.0); Mean Platelet Volume 9.6 fL (7.4-10.4); Nucleated Red Blood Cells % 0 %; Platelet Count 193 10^3/uL (130-400); Red Blood Cell Count 4.24 10^6/uL (4.20-5.40); Red Cell Dist. Width 13.2 % (11.5-14.5); White Blood Cell Count 8.9 10^3/uL (4.8-10.8)
[2024-08-31 19:48] LABS: COVID-19 Antigen Negative (Negative)
[2024-08-31 19:58] LABS: ALT (SGPT) 30 U/L (0-35); AST (SGOT) 46 U/L (14-36); Alkaline Phosphatase 68 U/L (38-126); Blood Urea Nitrogen 16 mg/dl (7-17); Carbon Dioxide 25 mmol/L (22-30); Chloride 93 mmol/L (98-107); Creatine Phosphokinase 179 U/L (30-135); Estimated Creatinine Clearance 52 ml/min; Glucose 103 mg/dl (70-99); Potassium 4.3 mmol/L (3.5-5.1); Sodium 127 mmol/L (135-145); Total Protein 6.2 g/dl (6.3-8.2); eGFR > 60.00
[2024-08-31 20:32] LABS: Urine Albumin 2+ (Neg - Trace); Urine Bilirubin Negative (Negative); Urine Character Slightly Cloudy (Clear); Urine Color Yellow; Urine Glucose Negative (Negative); Urine Ketone 2+ (Negative); Urine Leukocyte 3+ (Negative); Urine Nitrite Positive (Negative); Urine Urobilinogen Negative (Neg - 1+)
[2024-08-31 20:42] LABS: Urine Occult Blood 2+ (Negative)
[2024-08-31 20:49] LABS: Magnesium 1.9 mg/dl (1.6-2.3)
[2024-08-31] MEDS: TYLENOL 650 MG PO (20:49)
[2024-08-31] MEDS: NSS 1000 IV (20:52)
[2024-08-31 20:59] LABS: Urine Bacteria Many (Negative); Urine White Cell >100 /HPF (0-5)
[2024-08-31 21:12] LABS: Ionized Calcium 0.94 mMOL/L (1.15-1.33)
[2024-08-31 21:22] LABS: Osmolality Urine 619 mOsm/kg (300-900)
[2024-08-31 21:27] LABS: Osmolality Serum 268 mOsm/kg (275-300)
[2024-08-31 21:33] LABS: Urine Sodium 73 mmol/L (30-90)
--- NOTE | 2024-08-31 21:52 | HPS.HSE ---
Family Physician
-
Family Physician: Tushar Dickson MD
Chief Complaint
-
confusion
History of Present Illness
88-year-old female with history of atrial fibrillation on Eliquis, hypertension presenting to the emergency department for evaluation following unwitnessed fall. ROS limited due to Dementia. history obtained from ER notes and RN. patient was found
on the floor by NH staff. They state the patient seen more confused than her baseline. Patient denies any specific complaints including headache, chest pain, shortness of breath. No extremity injuries, numbness/tingling, or weakness. denied chest
pain, sob. denied abdominal pain,n,v,d. denied dysuria or hematuria.
positive for Influenza A, UTI. Patient received Tamiflu, ceftriaxone in ER. Admitted for further management
Medical History
Past Medical History
Past Medical History: Reports Other
Additional Past Medical History:
Aortic insufficiency
A-fib
Hyperlipidemia
Pacemaker
Hypertrophic cardiomyopathy
Sick sinus syndrome
Tachybradycardia syndrome
PAC
Prolapsed bladder
Rhabdo
Left hip fracture
Past Surgical History: Reports Other
Additional Past Surgical History:
Prior surgery
Hip surgery
Appendectomy
Social History
Tobacco: Non-smoker
Alcohol: None
Drug: None
Personal: Single
Living: [facility]
Family History
Family History: Not pertinent
Allergies / Home Medications
Allergies reflects when Allergies were last updated in [facility].
Home Medications with original date entered in [facility]
Allergy/Medication List:
Allergies
Allergy/AdvReac Type Severity Reaction Status Date / Time
No Known Allergies Allergy Verified 08/31/24 17:44
Home Medications
alendronate 70 mg tablet 70 mg PO ADAME osteoporosis 12/07/18
simvastatin 20 mg tablet 20 mg PO HS High cholesterol 12/07/18
apixaban 2.5 mg tablet (Eliquis) 2.5 mg PO BID Blood Clot Prevention/Tx 05/29/24
acetaminophen 325 mg tablet 650 mg (2 x 325 mg) PO Q4HPRN PRN mild pain/BAH/temp> 100.4F #60 tabs 06/03/24
amiodarone 100 mg tablet (Pacerone) 200 mg (2 x 100 mg) PO DAILY #60 tabs 06/03/24
metoprolol succinate 50 mg tablet,extended release 24 hr 75 mg (1.5 x 50 mg) PO DAILY #60 tabs 06/03/24
Review of Systems
-
Constitutional: Reports No Symptoms
EENT: Reports No Symptoms
Respiratory: Reports No Symptoms
Cardiac: Reports No Symptoms
Abdomen/GI: Reports No Symptoms
: Reports No Symptoms
Musculoskeletal: Reports No Symptoms
Skin: Reports No Symptoms
Neurological: Reports No Symptoms
Endocrine: Reports No Symptoms
Hematologic/Lymphatic: Reports No Symptoms
Psych: Reports No Symptoms
Physical Exam
Vital Signs
Vital Signs
Temp Pulse Resp BP Pulse Ox
102.8 F H 101 19 142/92 94
08/31/24 20:38 08/31/24 20:15 08/31/24 20:15 08/31/24 20:00 08/31/24 20:15
Physical Exam
General: Well Developed, Well Nourished and No Apparent Distress
HEENT: NormoCephalic, Moist mucous membranes and Atraumatic
Respiratory: Clear
Cardiac: S1/S2 and Regular Rhythm; No Murmur or Rub
GI: Soft, Non Tender, Non Distended and Normal Bowel Sounds; No Organomegaly
Rectal: Deferred by Provider
Musculoskeletal: No Clubbing, No Cyanosis and No Edema
Skin: No Rash
Neuro: AO x 3 and Nonfocal/grossly intact
Psych: Calm
Laboratory Results
-
08/31/24 19:12
08/31/24 19:12
Laboratory Results
Total Bilirubin 1.0 mg/dl (0.2-1.3) 08/31/24 19:12
AST 46 U/L (14-36) H 08/31/24 19:12
ALT 30 U/L (0-35) 08/31/24 19:12
Alkaline Phosphatase 68 U/L (38-126) 08/31/24 19:12
Data Reviewed
-
Diagnostic Radiology: Report Reviewed by me
CT Scan: Report Reviewed by me
Lab Data: Labs Reviewed by me
Impression/Plan
-
# Metabolic encephalopathy likely secondary to acute UTI
-Head CT with no evidence of acute intracranial abnormality
-Ceftriaxone continued
-Urine culture pending
# Influenza A
-Tamiflu continued
-Tylenol as needed for fever or pain
# Acute hyponatremia likely from dehydration
-Normal saline continued
-Urine sodium
-BMP in a.m.
# Unwitnessed fall/generalized weakness likely from UTI/influenza A
- PT/OT consult
-Cervical spine CT with impression of no evidence of acute fracture or dislocation
# Paroxysmal Afib
-Pacemaker in place
-Metoprolol and Eliquis amiodarone continued
-EKG with atrial fib
#Dementia
#HLD
-Statin
#Essential HTN
-metoprolol
#Osteoporosis
-Patient on alendronate
DVT ppx on Eliquis
Full code
[2024-08-31] MEDS: TAMIFLU 75 MG PO (21:59)
[2024-08-31] MEDS: ROCEPHIN 1000 MG IV (21:59)
--- NOTE | 2024-08-31 22:14 | W.PN.UPDATE ---
Update Note
Progress Note Update
This is an addendum to H&P written by [employer]ERCER Nisreen Townsend
I saw and examined the patient.
The [employer] PIERCER's note was reviewed and I agree with the note.
Comment:
Ms. Lynn Swann is a 88 yo woman with hx afib on Eliquis, essential HTN, dementia presents to the ER after an unwitnesed fall. She was found in NH on the ground in bathroom and appeared more confused than baseline.
Triage VS: T 102.8, P 97, RR 23, BP 103/75, SpO2 93%
On exam patient resting comfortable, wakes up to voice and denies pain. Lungs Clear, abdomen soft, no LE swelling.
LABS: WBC 8.9, Hg 13.1, PLT 193, Na 127, K+ 4.3, Cl 93, CO2 25, BUN 16, Cr 0.6, Glucose 103, Mag 1.9, T. bili 1, AST 46, ALT 30CK 179
Influenza +
UA with > [address]
IMPRESSION:
No evidence of acute intracranial abnormality.
CERVICAL SPINE CT
IMPRESSION: No evidence of acute fracture or dislocation.
Influenza
-start Tamiflu
UTI
-continue IV Ceftriaxone
-F/U culture
Weakness 2/2 Above
PT/OT
Hyponatremia
-s/p fluids in ER
-urine studies show urine sodium 73, osmol 619
-will write for fluid restriction and monitor
Hx Afib
-continue SKULL CHOPPER Amiodarone, Eliquis, Metoprolol
Remainder of plan per [employer] note
[2024-09-01] VITALS (15 sets, daily range): BP systolic 99–149; BP diastolic 55–101; PULSE 79; O2SAT 96–98; BMI 25.8
[2024-09-01] MEDS: ELIQUIS 2.5 MG PO ×3 (00:20→20:15)
[2024-09-01] MEDS: TYLENOL 650 MG PO (05:02)
[2024-09-01 06:23] LABS: Blood Urea Nitrogen 11 mg/dl (7-17); Carbon Dioxide 21 mmol/L (22-30); Chloride 98 mmol/L (98-107); Estimated Creatinine Clearance 52 ml/min; Glucose 81 mg/dl (70-99); Potassium 3.4 mmol/L (3.5-5.1); Sodium 130 mmol/L (135-145); eGFR > 60.00
[2024-09-01] MEDS: PACERONE 200 MG PO (08:53)
[2024-09-01] MEDS: TAMIFLU 30 MG PO ×2 (08:53→20:15)
--- NOTE | 2024-09-01 09:18 | W.PN.HOSP.TC ---
Today's Communication/Plan
-
Tamiflu.
Chest x-ray.
IV antibiotics pending urine and blood cultures.
Hydration following sodium level
Assessment / Plan
Assessment / Plan
Impression:
Presentation with falls.
Fever.
Influenza A positive.
Abnormal urinalysis.
Hyponatremia.
Hypokalemia
Conditions prior to admission:
Paroxysmal atrial fibrillation
Anticoagulation with Eliquis
HOCM?
Tachybradycardia syndrome status post [employer]tronic pacemaker
Dyslipidemia
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
Plan:
Presentation with falls likely related to generalized fatigue and fever.
Mental status close to baseline.
Neurologic exam overall with no focal findings.
CT head, CT of cervical spine with no acute abnormalities
Fever
Influenza A positive
No respiratory symptoms
Check chest x-ray.
Initiated on Tamiflu.
Abnormal urinalysis,
Patient with dementia and currently offers no urinary complaints.
Prior history of UTI noted.
Initiated on ceftriaxone empirically pending blood and urine cultures
Hyponatremia
Given soft BP suspect hypovolemic.
Noted improvement with fluid bolus
Continue isotonic solution.
Check urine osm and urine sodium
Check TSH
Follow BMP
Hypokalemia
Monitor oral intake
Replete potassium.
Paroxysmal atrial fibrillation.
Rate controlled
Echo 05/25 LVEF 60-65%. Moderate to severe tricuspid regurgitation. Pulmonary pressure 36 mmHg
Chronic amiodarone therapy per
Continue metoprolol with caution for hypotension.
Anticoagulation with Eliquis dose adjusted.
Ambulatory dysfunction
Using walker.
Continue PT assessment
CODE STATUS DNR
Anticipated Discharge: 24 - 48 hours
Subjective/Interval History
-
Date of Service: September 01, 2024
Objective Data
-
Labs:
Laboratory Results
09/01/24
04:57
Sodium 130 L
Potassium 3.4 L
Chloride 98
Carbon Dioxide 21 L
BUN 11
Creatinine 0.5 L
Glucose 81
Calcium 8.0 L
Vital Signs:
Vital Signs
Temp Pulse Resp BP Pulse Ox
97.9 F 89 20 124/85 96
09/01/24 07:30 09/01/24 08:53 09/01/24 08:53 09/01/24 08:53 09/01/24 08:45
Physical Exam
-
General: Well Developed and No Apparent Distress
HEENT: Normocephalic, Atraumatic and Moist Mucous Membranes
Respiratory: Clear to Auscultation
Cardiac: Regular Rhythm and S1/S2; Negative Murmur, Rub or Gallop
GI: Soft, Nontender, Nondistended and Normal Bowel Sounds; Negative Organomegaly
Rectal: Deferred by Provider
Musculoskeletal: No Clubbing, No Cyanosis and No Edema
Skin: Negative Rash
Neuro: Nonfocal/Grossly Intact
[2024-09-01] MEDS: TOPROL XL 75 MG PO (09:46)
[2024-09-01] MEDS: KCL 40 MEQ PO (09:49)
[2024-09-01] MEDS: NSS 1000 IV (09:55)
[2024-09-01 10:33] LABS: TSH 1.86 uIU/ml (0.47-4.68)
--- NOTE | 2024-09-01 18:26 | PTCARENOTE ---
rec'd pt from ER. walked from stretcher to bed utilizing rolling walker. placed on droplet precautions. NSS infusing at 75ml/hr per order. pt denies pain. oriented to unit. call razo in reach
[2024-09-01] MEDS: DESENEX/MITRAZOL/ZEASORB 1 APPLIC TOPICAL (20:15)
[2024-09-01] MEDS: LIPITOR 10 MG PO (21:25)
[2024-09-01] MEDS: ROCEPHIN 1000 MG IV (21:26)
[2024-09-01] MEDS: STERILE WATER FOR INJECTION 10 ML IV (21:26)
[2024-09-01 21:31] LABS: Glucose - Point of Care 100 mg/dl (70-99)
[2024-09-02 03:13] VITALS: BP 119/85
[2024-09-02 07:35] VITALS: BP 135/80
[2024-09-02] MEDS: DESENEX/MITRAZOL/ZEASORB 1 APPLIC TOPICAL ×2 (08:32→20:10)
[2024-09-02] MEDS: TOPROL XL 75 MG PO (08:33)
[2024-09-02] MEDS: PACERONE 200 MG PO (08:33)
[2024-09-02] MEDS: TAMIFLU 30 MG PO ×2 (08:34→20:10)
[2024-09-02] MEDS: ELIQUIS 2.5 MG PO ×2 (08:34→20:10)
[2024-09-02 08:43] LABS: % Basophils 0.6 % (0-2); % Immature Granulocytes 0.3 % (0-0.5); % Lymphocytes 23.2 % (20.5-51.1); % Monocytes 14.3 % (1.7-9.3); % Neutrophils 61.6 % (42.2-75.2); Absolute Lymphocytes 1.5 10^3/uL (1.2-3.4); Absolute Monocytes 0.9 10^3/uL (0.1-0.6); Absolute Neutrophils 3.9 10^3/uL (1.4-6.5); Hematocrit 38.6 % (37.0-47.0); Hemoglobin 12.8 g/dL (12.0-16.0); Mean Corp Hgb Conc. 33.2 g/dL (33.0-37.0); Mean Corpuscular Hgb 30.5 pg (27.0-31.0); Mean Corpuscular Volume 92.1 fL (81.0-99.0); Mean Platelet Volume 10.3 fL (7.4-10.4); Nucleated Red Blood Cells % 0 %; Platelet Count 176 10^3/uL (130-400); Red Blood Cell Count 4.19 10^6/uL (4.20-5.40); Red Cell Dist. Width 13.4 % (11.5-14.5); White Blood Cell Count 6.4 10^3/uL (4.8-10.8)
[2024-09-02 09:18] LABS: Blood Urea Nitrogen 10 mg/dl (7-17); Calcium 7.8 mg/dl (8.4-10.2); Carbon Dioxide 24 mmol/L (22-30); Chloride 98 mmol/L (98-107); Estimated Creatinine Clearance 53 ml/min; Glucose 84 mg/dl (70-99); Potassium 3.8 mmol/L (3.5-5.1); Sodium 128 mmol/L (135-145); eGFR > 60.00
[2024-09-02 11:10] VITALS: BP 111/68
--- NOTE | 2024-09-02 12:48 | W.PN.HOSP.TC ---
Today's Communication/Plan
-
Monitor vital signs see plan
Follow fever curve
Continue with normal saline
Continue Tamiflu
Continue with antibiotics
Continue amiodarone, Eliquis, metoprolol
PT/OT
Assessment / Plan
Assessment / Plan
Impression:
Presentation with falls.
Fever.
Influenza A positive.
Abnormal urinalysis.
Hyponatremia.
Hypokalemia
Conditions prior to admission:
Paroxysmal atrial fibrillation
Anticoagulation with Eliquis
HOCM?
Tachybradycardia syndrome status post Medtronic pacemaker
Dyslipidemia
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
Plan:
Presentation with falls likely related to generalized fatigue and fever.
Mental status close to baseline.
Neurologic exam overall with no focal findings.
CT head, CT of cervical spine with no acute abnormalities
Fever
Influenza A positive
No respiratory symptoms
Check chest x-ray.
Initiated on Tamiflu.
Abnormal urinalysis,
Patient with dementia and currently offers no urinary complaints.
Prior history of UTI noted.
Initiated on ceftriaxone; urine culture with E. coli.
Hyponatremia
Given soft BP suspect hypovolemic.
Noted improvement with fluid bolus
Continue normal saline
TSH 1.8
Hypokalemia
Monitor oral intake
Replete potassium.
Paroxysmal atrial fibrillation.
Rate controlled
Echo 05/25 LVEF 60-65%. Moderate to severe tricuspid regurgitation. Pulmonary pressure 36 mmHg
Chronic amiodarone therapy per
Continue metoprolol with caution for hypotension.
Anticoagulation with Eliquis dose adjusted.
Ambulatory dysfunction
Using walker.
Continue PT assessment
CODE STATUS DNR
General: Well Developed and No Apparent Distress
HEENT: Normocephalic, Atraumatic and Moist Mucous Membranes
Respiratory: Clear to Auscultation
Cardiac: Regular Rhythm and S1/S2; Negative Murmur, Rub or Gallop
GI: Soft, Nontender, Nondistended and Normal Bowel Sounds
Musculoskeletal:No Edema
Neuro: Nonfocal/Grossly Intact
Anticipated Discharge: 24 - 48 hours
Subjective/Interval History
-
Date of Service: September 02, 2024
Feels tired
Objective Data
-
Labs:
Laboratory Results
09/02/24
07:24
WBC 6.4
Hgb 12.8
Hct 38.6
Plt Count 176
Sodium 128 L
Potassium 3.8
Chloride 98
Carbon Dioxide 24
BUN 10
Creatinine 0.6
Glucose 84
Calcium 7.8 L
Vital Signs:
Vital Signs
Temp Pulse Resp BP Pulse Ox
97.6 F 103 20 135/80 98
09/02/24 07:35 09/02/24 07:35 09/02/24 07:35 09/02/24 07:35 09/02/24 07:35
I&O
09/01/24 09/02/24 09/03/24
06:59 06:59 06:59
Intake Total 1080 / 1080
Output Total 350 / 350
Balance 730 / 730
[2024-09-02] MEDS: NSS 1000 IV (14:29)
[2024-09-02 15:05] VITALS: BP 123/83
[2024-09-02 15:17] LABS: Urine Sodium 72 mmol/L (30-90)
[2024-09-02 15:45] LABS: Osmolality Urine 269 mOsm/kg (300-900)
[2024-09-02 20:11] VITALS: BP 104/63
[2024-09-02] MEDS: ROCEPHIN 1000 MG IV (21:09)
[2024-09-02] MEDS: STERILE WATER FOR INJECTION 10 ML IV (21:09)
[2024-09-02] MEDS: LIPITOR 10 MG PO (21:09)
[2024-09-02 23:55] VITALS: BP 100/59
[2024-09-03 04:01] VITALS: BP 146/92
[2024-09-03 04:25] LABS: % Basophils 0.3 % (0-2); % Eosinophils 0.3 % (0-6); % Immature Granulocytes 0.1 % (0-0.5); % Lymphocytes 29.1 % (20.5-51.1); % Monocytes 11.8 % (1.7-9.3); % Neutrophils 58.4 % (42.2-75.2); Absolute Lymphocytes 2.1 10^3/uL (1.2-3.4); Absolute Monocytes 0.8 10^3/uL (0.1-0.6); Absolute Neutrophils 4.1 10^3/uL (1.4-6.5); Hematocrit 43.8 % (37.0-47.0); Hemoglobin 14.6 g/dL (12.0-16.0); Mean Corp Hgb Conc. 33.3 g/dL (33.0-37.0); Mean Corpuscular Hgb 30.6 pg (27.0-31.0); Mean Corpuscular Volume 91.8 fL (81.0-99.0); Nucleated Red Blood Cells % 0 %; Platelet Count 198 10^3/uL (130-400); Red Blood Cell Count 4.77 10^6/uL (4.20-5.40); Red Cell Dist. Width 13.2 % (11.5-14.5)
[2024-09-03 04:53] LABS: Blood Urea Nitrogen 9 mg/dl (7-17); Calcium 8.3 mg/dl (8.4-10.2); Carbon Dioxide 23 mmol/L (22-30); Chloride 100 mmol/L (98-107); Estimated Creatinine Clearance 53 ml/min; Glucose 101 mg/dl (70-99); Sodium 134 mmol/L (135-145); eGFR > 60.00
[2024-09-03] MEDS: NSS 1000 IV (04:55)
[2024-09-03 07:00] VITALS: BP 127/72
--- NOTE | 2024-09-03 08:36 | CM ---
Pt has dementia, unable to participate in assessment. CM spoke w/ pt's daughter/POA, Angy. Initial assessment completed. Admitted for confusion.
Pt is a LTC resident at [facility]. Pt is independent w/ walker for ambulation. Per Angy, pt is assisted w/ showering but is able to feed herself and dress herself independently. Pt has skilled rehab hx at multiple facilities including [facility],
[facility] and [facility]. Pt has utilized home therapy at [facility] in the past.
Address, points of contact and insurance verified
PCP: Dr. Dickson
Pharmacy: [facility]
PT evaluated and is recommending pt to return to [facility] w/ PT
Pt will need ambulance transport at d/c
Plan: Return to [facility] when stable
[2024-09-03] MEDS: TAMIFLU 30 MG PO ×2 (08:42→19:49)
[2024-09-03] MEDS: ELIQUIS 2.5 MG PO ×2 (08:43→19:50)
[2024-09-03] MEDS: TOPROL XL 75 MG PO (08:43)
[2024-09-03] MEDS: PACERONE 200 MG PO (08:43)
[2024-09-03] MEDS: DESENEX/MITRAZOL/ZEASORB 1 APPLIC TOPICAL ×2 (08:52→19:54)
[2024-09-03 11:00] VITALS: BP 127/81
--- NOTE | 2024-09-03 12:31 | W.PN.HOSP.TC ---
Today's Communication/Plan
-
Monitor vitals
See plan
Continue with Tamiflu
Monitor sodium
Continue antibiotics
Follow urine culture
Hopeful DC tomorrow
Assessment / Plan
Assessment / Plan
Impression:
Presentation with falls.
Fever.
Influenza A positive.
Abnormal urinalysis.
Hyponatremia.
Hypokalemia
Conditions prior to admission:
Paroxysmal atrial fibrillation
Anticoagulation with Eliquis
HOCM?
Tachybradycardia syndrome status post Medtronic pacemaker
Dyslipidemia
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
Plan:
Presentation with falls likely related to generalized fatigue and fever.
Mental status close to baseline.
Neurologic exam overall with no focal findings.
CT head, CT of cervical spine with no acute abnormalities
Fever
Influenza A positive
No respiratory symptoms
Check chest x-ray.
Initiated on Tamiflu.
Abnormal urinalysis,
Patient with dementia and currently offers no urinary complaints.
Prior history of UTI noted.
Initiated on ceftriaxone; urine culture with E. coli. Final sensitivities pending
Hyponatremia
Given soft BP suspect hypovolemic. Sodium now improving, 134 today
Noted improvement with fluid bolus
Continue normal saline
TSH 1.8
Hypokalemia
Monitor oral intake
Replete potassium.
Paroxysmal atrial fibrillation.
Rate controlled
Echo 05/25 LVEF 60-65%. Moderate to severe tricuspid regurgitation. Pulmonary pressure 36 mmHg
Chronic amiodarone therapy per
Continue metoprolol with caution for hypotension.
Anticoagulation with Eliquis dose adjusted.
Ambulatory dysfunction
Using walker.
Continue PT assessment
CODE STATUS DNR
General: Well Developed and No Apparent Distress
HEENT: Normocephalic, Atraumatic and Moist Mucous Membranes
Respiratory: Clear to Auscultation
Cardiac: Regular Rhythm and S1/S2; Negative Murmur, Rub or Gallop
GI: Soft, Nontender, Nondistended and Normal Bowel Sounds
Musculoskeletal:No Edema
Neuro: Nonfocal/Grossly Intact
Anticipated Discharge: Within 24 hours
Subjective/Interval History
-
Date of Service: September 03, 2024
Denies pain
Objective Data
-
Labs:
Laboratory Results
09/03/24
04:01
WBC 7.0
Hgb 14.6
Hct 43.8
Plt Count 198
Sodium 134 L
Potassium 4.0
Chloride 100
Carbon Dioxide 23
BUN 9
Creatinine 0.6
Glucose 101 H
Calcium 8.3 L
Vital Signs:
Vital Signs
Temp Pulse Resp BP Pulse Ox
98.1 F 81 16 127/81 97
09/03/24 11:00 09/03/24 11:00 09/03/24 11:00 09/03/24 11:00 09/03/24 11:00
I&O
09/02/24 09/03/24 09/04/24
06:59 06:59 06:59
Intake Total 1080 / 1080 1340 / 1340
Output Total 350 / 350
Balance 730 / 730 1340 / 1340
[2024-09-03 15:57] VITALS: BP 135/85
[2024-09-03 19:30] VITALS: BP 108/61
[2024-09-03] MEDS: STERILE WATER FOR INJECTION 10 ML IV (21:11)
[2024-09-03] MEDS: LIPITOR 10 MG PO (21:11)
[2024-09-03] MEDS: ROCEPHIN 1000 MG IV (21:12)
[2024-09-03 23:45] VITALS: BP 113/77
[2024-09-04] MEDS: MELATONIN 3 MG PO (00:11)
[2024-09-04 03:55] VITALS: BP 120/78
[2024-09-04 07:00] VITALS: BP 144/73
[2024-09-04 09:19] LABS: % Basophils 0.5 % (0-2); % Eosinophils 0.2 % (0-6); % Immature Granulocytes 0.5 % (0-0.5); % Lymphocytes 17.2 % (20.5-51.1); % Monocytes 13.7 % (1.7-9.3); % Neutrophils 67.9 % (42.2-75.2); Absolute Monocytes 0.8 10^3/uL (0.1-0.6); Absolute Neutrophils 3.9 10^3/uL (1.4-6.5); Hematocrit 36.7 % (37.0-47.0); Hemoglobin 12.3 g/dL (12.0-16.0); Mean Corp Hgb Conc. 33.5 g/dL (33.0-37.0); Mean Corpuscular Hgb 30.6 pg (27.0-31.0); Mean Corpuscular Volume 91.3 fL (81.0-99.0); Mean Platelet Volume 10.3 fL (7.4-10.4); Nucleated Red Blood Cells % 0 %; Platelet Count 184 10^3/uL (130-400); Red Blood Cell Count 4.02 10^6/uL (4.20-5.40); White Blood Cell Count 5.7 10^3/uL (4.8-10.8)
[2024-09-04] MEDS: ELIQUIS 2.5 MG PO (09:56)
[2024-09-04] MEDS: TAMIFLU 30 MG PO ×2 (09:56→18:45)
[2024-09-04] MEDS: PACERONE 200 MG PO (09:56)
[2024-09-04] MEDS: TOPROL XL 75 MG PO (09:56)
[2024-09-04 10:01] LABS: Blood Urea Nitrogen 11 mg/dl (7-17); Carbon Dioxide 25 mmol/L (22-30); Chloride 97 mmol/L (98-107); Estimated Creatinine Clearance 53 ml/min; Glucose 92 mg/dl (70-99); Potassium 3.4 mmol/L (3.5-5.1); Sodium 132 mmol/L (135-145); eGFR > 60.00
[2024-09-04 10:20] VITALS: BP 141/85; PULSE 92; O2SAT 98
[2024-09-04 10:21] VITALS: BP 141/85; PULSE 87; O2SAT 98
--- NOTE | 2024-09-04 11:15 | CM ---
Addendum entered by Dona Morales 09/04/24 15:50:
Per [facility]: Auth approved 5 days skilled level 1, auth #[id number], 09/04-09/08, next review 09/08 to [phone], ambulance auth #[id number]. Update to [facility] at [facility]. Phone call to daughter with transport time: 6:45 p.m.
Addendum entered by Dona Morales 09/04/24 15:10:
Patient stable for return to [facility], patient is [employer], [facility] left for patients daughter, MERCEDES, Angy, to discuss discharge planning, review IMM, discuss transport. Update to [facility] that
patient is stable for discharge.
Plan; return to [facility], daughter to transport vs ambulance transport
[facility]
Report: [phone]

Original Note:
CM reviewed chart, patient seen in chair. Patient LTC resident at [facility], will need auth through [facility] to return ([facility] , Dr. Hernandez: [id number]). CM will continue to follow for all discharge planning needs.
Plan; [facility] LT, will require auth when stable
[2024-09-04 15:00] VITALS: BP 111/71
--- NOTE | 2024-09-04 15:45 | W.DS.TRANS ---
DC Summary - [employer]
-
Discharge Instructions:
Sleep Apnea Risk Low
Discharge Diagnosis/Procedures Impression:
Presentation with falls.
Fever.
Influenza A positive.
Abnormal urinalysis.
Hyponatremia.
Hypokalemia
Conditions prior to admission:
Paroxysmal atrial fibrillation
Anticoagulation with Eliquis
HOCM?
Tachybradycardia syndrome status post Medtronic
pacemaker
Dyslipidemia
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
Diet Low Cholesterol
Instructions:
Stand-Alone Forms:
Changes to Home Medications: No
Discharge Medications:
DC Medications w/original date entered in [facility]
alendronate 70 mg tablet 70 mg PO ADAME osteoporosis 12/07/18
simvastatin 20 mg tablet 20 mg PO HS High cholesterol 12/07/18
apixaban 2.5 mg tablet (Eliquis) 2.5 mg PO BID Blood Clot Prevention/Tx 05/29/24
acetaminophen 325 mg tablet 650 mg (2 x 325 mg) PO Q4HPRN PRN mild pain/BAH/temp> 100.4F #60 tabs 06/03/24
amiodarone 100 mg tablet (Pacerone) 200 mg (2 x 100 mg) PO DAILY #60 tabs 06/03/24
metoprolol succinate 50 mg tablet,extended release 24 hr 75 mg (1.5 x 50 mg) PO DAILY #60 tabs 06/03/24
cephalexin 500 mg capsule 500 mg PO BID #6 caps 09/04/24
oseltamivir 30 mg capsule 30 mg PO BID #2 caps 09/04/24
Home Medication Changes
Pending Results: No
[2024-09-04] MEDS: KCL 40 MEQ PO (16:25)
[2024-09-04] MEDS: DESENEX/MITRAZOL/ZEASORB 1 APPLIC TOPICAL (16:25)
== END 2024-09-04 19:18 | DRG 193 ==
LOC: 4 WEST ACU 22:39
PROVIDERS: Internal Medicine; Physician Assistant; Registered Nurse; ADMITTING PHYSICIAN Student in an Organized Health Care Education/Training Program; ATTENDING PHYSICIAN Internal Medicine; EMERGENCY PHYSICIAN Student in an Organized Health Care Education/Training Program; FAMILY PHYSICIAN Hospitalist
DX: J10.1 Influenza due to other identified influenza virus with other respiratory manifestations (principal); G93.41 Metabolic encephalopathy; E87.1 Hypo-osmolality and hyponatremia; N39.0 Urinary tract infection, site not specified; I42.2 Other hypertrophic cardiomyopathy; Z66 Do not resuscitate; E87.6 Hypokalemia; G30.9 Alzheimer's disease, unspecified; F02.80 Dementia in other diseases classified elsewhere, unspecified severity, without behavioral disturbance, psychotic disturbance, mood disturbance, and anxiety; E78.5 Hyperlipidemia, unspecified; E83.51 Hypocalcemia; E86.0 Dehydration; I10 Essential (primary) hypertension; I35.1 Nonrheumatic aortic (valve) insufficiency; I48.0 Paroxysmal atrial fibrillation; M81.0 Age-related osteoporosis without current pathological fracture; B96.20 Unspecified Escherichia coli [E. coli] as the cause of diseases classified elsewhere; I49.5 Sick sinus syndrome; Z95.0 Presence of cardiac pacemaker; Z79.01 Long term (current) use of anticoagulants; Z11.52 Encounter for screening for COVID-19
CPT/HCPCS: 70450; 71045; 72125; 80048; 80053; 81003; 81015; 82330; 82550; 82962; 83735; 83930; 83935; 84300; 84443; 85025; 87077; 87086; 87186; 87502; 87807; 87811; 93005; 93288; 96361; 96374; 97530; 97535; 99285

== ENCOUNTER → 2024-09-14 10:48 | Outpatient (REF) | payer OTHER, MEDICARE, SELFPAY ==
[2024-09-14 12:14] LABS: % Basophils 0.8 % (0-2); % Eosinophils 0.6 % (0-6); % Immature Granulocytes 0.4 % (0-0.5); % Lymphocytes 18.7 % (20.5-51.1); % Monocytes 9.9 % (1.7-9.3); % Neutrophils 69.6 % (42.2-75.2); Absolute Basophils 0.1 10^3/uL (0-0.2); Absolute Eosinophils 0.1 10^3/uL (0-0.7); Absolute Lymphocytes 1.5 10^3/uL (1.2-3.4); Absolute Monocytes 0.8 10^3/uL (0.1-0.6); Absolute Neutrophils 5.5 10^3/uL (1.4-6.5); Hematocrit 36.7 % (37.0-47.0); Hemoglobin 12.1 g/dL (12.0-16.0); Mean Corpuscular Hgb 30.1 pg (27.0-31.0); Mean Corpuscular Volume 91.3 fL (81.0-99.0); Mean Platelet Volume 10.1 fL (7.4-10.4); Nucleated Red Blood Cells % 0 %; Platelet Count 373 10^3/uL (130-400); Red Blood Cell Count 4.02 10^6/uL (4.20-5.40); Red Cell Dist. Width 13.2 % (11.5-14.5)
[2024-09-14 12:18] LABS: Blood Urea Nitrogen 8 mg/dl (7-17); Calcium 8.5 mg/dl (8.4-10.2); Carbon Dioxide 27 mmol/L (22-30); Chloride 100 mmol/L (98-107); Glucose 88 mg/dl (70-99); Potassium 3.7 mmol/L (3.5-5.1); Sodium 133 mmol/L (135-145); eGFR > 60.00
== END ==
LOC: OLABP 10:48
PROVIDERS: ATTENDING PHYSICIAN Family Medicine
DX: I49.5 Sick sinus syndrome (principal); Z95.0 Presence of cardiac pacemaker; I48.0 Paroxysmal atrial fibrillation; E78.5 Hyperlipidemia, unspecified; I10 Essential (primary) hypertension; M81.0 Age-related osteoporosis without current pathological fracture; R29.6 Repeated falls; F03.90 Unspecified dementia, unspecified severity, without behavioral disturbance, psychotic disturbance, mood disturbance, and anxiety; R26.2 Difficulty in walking, not elsewhere classified; M62.81 Muscle weakness (generalized); R06.09 Other forms of dyspnea
CPT/HCPCS: 36415; 80048; 85025

== ENCOUNTER → 2024-10-02 09:56 | Outpatient (REF) | payer OTHER, SELFPAY ==
[2024-10-02 12:31] LABS: Blood Urea Nitrogen 16 mg/dl (7-17); Calcium 8.9 mg/dl (8.4-10.2); Carbon Dioxide 31 mmol/L (22-30); Chloride 100 mmol/L (98-107); Glucose 88 mg/dl (70-99); Potassium 4.4 mmol/L (3.5-5.1); Sodium 136 mmol/L (135-145); eGFR > 60.00
== END ==
LOC: OLABP 09:56
PROVIDERS: ATTENDING PHYSICIAN Family Medicine
DX: I49.5 Sick sinus syndrome (principal); Z95.0 Presence of cardiac pacemaker; I48.0 Paroxysmal atrial fibrillation; E78.5 Hyperlipidemia, unspecified; I10 Essential (primary) hypertension; M81.0 Age-related osteoporosis without current pathological fracture; F03.90 Unspecified dementia, unspecified severity, without behavioral disturbance, psychotic disturbance, mood disturbance, and anxiety; R26.2 Difficulty in walking, not elsewhere classified; M62.81 Muscle weakness (generalized); R06.09 Other forms of dyspnea
CPT/HCPCS: 36415; 80048

== ENCOUNTER → 2024-10-05 09:17 | Outpatient (REF) | payer OTHER, SELFPAY ==
[2024-10-05 11:21] LABS: Blood Urea Nitrogen 18 mg/dl (7-17); Calcium 8.9 mg/dl (8.4-10.2); Carbon Dioxide 28 mmol/L (22-30); Chloride 100 mmol/L (98-107); Glucose 93 mg/dl (70-99); Sodium 135 mmol/L (135-145); eGFR > 60.00
== END ==
LOC: OLABP 09:17
PROVIDERS: ATTENDING PHYSICIAN Family Medicine
DX: I49.5 Sick sinus syndrome (principal); Z95.0 Presence of cardiac pacemaker; I48.0 Paroxysmal atrial fibrillation; E78.5 Hyperlipidemia, unspecified; I10 Essential (primary) hypertension; M81.0 Age-related osteoporosis without current pathological fracture; R29.6 Repeated falls; F03.90 Unspecified dementia, unspecified severity, without behavioral disturbance, psychotic disturbance, mood disturbance, and anxiety; R26.2 Difficulty in walking, not elsewhere classified; M62.81 Muscle weakness (generalized); R06.09 Other forms of dyspnea
CPT/HCPCS: 36415; 80048

== ENCOUNTER → 2024-10-23 10:51 | Outpatient (REF) | payer OTHER, SELFPAY ==
[2024-10-23 13:31] LABS: ALT (SGPT) 18 U/L (0-35); AST (SGOT) 23 U/L (14-36); Albumin 3.5 g/dl (3.5-5.0); Alkaline Phosphatase 95 U/L (38-126); Blood Urea Nitrogen 14 mg/dl (7-17); Calcium 8.8 mg/dl (8.4-10.2); Carbon Dioxide 27 mmol/L (22-30); Chloride 103 mmol/L (98-107); Glucose 92 mg/dl (70-99); Potassium 3.8 mmol/L (3.5-5.1); Sodium 139 mmol/L (135-145); Total Protein 5.7 g/dl (6.3-8.2); eGFR > 60.00
[2024-10-23 16:14] LABS: NT-proBNP 3180 pg/ml
== END ==
LOC: OLABP 10:51
PROVIDERS: ATTENDING PHYSICIAN Family Medicine
DX: I49.5 Sick sinus syndrome (principal); Z95.0 Presence of cardiac pacemaker; I48.0 Paroxysmal atrial fibrillation; E78.5 Hyperlipidemia, unspecified; I10 Essential (primary) hypertension; M81.0 Age-related osteoporosis without current pathological fracture; R26.9 Unspecified abnormalities of gait and mobility; F03.90 Unspecified dementia, unspecified severity, without behavioral disturbance, psychotic disturbance, mood disturbance, and anxiety; M62.81 Muscle weakness (generalized); R06.09 Other forms of dyspnea
CPT/HCPCS: 36415; 80053; 83880

== ENCOUNTER 2024-10-24 23:27 | Inpatient (IN) | payer OTHER, SELFPAY ==
[2024-10-24] VITALS (9 sets, daily range): BP systolic 96–143; BP diastolic 64–109; PULSE 2–91; BMI 29.4
--- NOTE | 2024-10-24 21:36 | ED.GENMED ---
History of Present Illness
General
Chief Complaint: Breathing Problem
Time Seen by Provider: 10/24/24 21:34
History of Present Illness
History of Present Illness:
TIME OF INITIAL ENCOUNTER: 9:30 PM
HPI: The patient comes in from [facility] due to severe shortness of breath. She is not normally on oxygen and was found to have room air sats of is low at 60%. She was placed on 4 L/min of oxygen with only minimal improvement of her sats. She was
placed on nonrebreather by EMS and sats have been improving. She reportedly does have a history of dementia but is a fair historian currently. EMS also noted a left bundle branch block.
EXAM:
GENERAL: The patient is in moderate respiratory distress
HEENT: Slightly dry oral mucosa
CARDIOVASCULAR: No murmurs, normal heart rate, regular rhythm, No chest wall tenderness
PULMONARY: Moderate respiratory distress, increased work of breathing, tachypneic, Rales heard diffusely
ABDOMEN: Soft with no peritoneal signs, no tenderness
NEUROLOGIC: Good strength all extremities, no coordination deficits, she knows that she is at a hospital and she knows that it is September
PSYCHIATRIC: Some cognitive deficits noted, fair insight and judgement
EXTREMITIES: Nontender, 2-3+ bilateral lower extremity edema, moves all extremities equally
SKIN: No rash, no lesions
NUMBER AND COMPLEXITY OF PROBLEMS ADDRESSED AT THE ENCOUNTER
� Chronic conditions affecting care: Dementia, A-fib, high blood pressure
� Acute Exacerbation and/or Progression of Chronic Illness: This is an acute problem
� Differential Diagnosis includes: CHF, progression of valvular disease, pneumonia, doubt ACS
AMOUNT AND/OR COMPLEXITY OF DATA TO BE REVIEWED AND ANALYZED
� I performed an independent evaluation of and my interpretation is:
EKG: A-fib, 99, left axis deviation, left bundle branch block not significantly changed from 08/31/2024
CT:
X-rays: Chest x-ray shows fluffy infiltrate/pulmonary edema
Laboratory Studies: White count 10.4, hemoglobin 13.8, BNP over 4000
Other:
� Review of other/old records: I reviewed records, the patient was admitted here nearly 2 months ago with influenza and hyponatremia/hypokalemia. She also had paroxysmal A-fib as well. As of 2 months ago she was on metoprolol
and Eliquis. She did have an echo in May 2024 that showed preserved BiV function with moderate to severe tricuspid regurgitation and PA pressure of 36
� Clinical information was obtained by an independent historian: EMS; I attempted to call daughter however this went to voicemail and I left a message but she did not call back as of 10:05 PM
� Prescriptions/Medications Considered but not given:
� Further testing considered but not performed:
RISK OF COMPLICATIONS AND/OR MORBIDITY OR MORTALITY OF PATIENT MANAGEMENT
� Social determinants of health affecting care: Resides at [facility]
� Discussion with other providers:Dr. Mejia for admission
� Escalation of care including admission/observation vs risk of discharge considered: The patient was seen immediately upon arrival given the EMS concern for severe hypoxia. Marked rales bilaterally. Chest x-ray shows fluffy
infiltrates/pulmonary edema. The patient will be diuresed. Records from [facility] indicate that she had a BNP over 3000 from blood work that was done as an outpatient yesterday. She is not on any diuretic. She was placed on BiPAP upon arrival and
currently at 12/5 with FiO2 at 75% she is at 100%. She appears more comfortable.
ANY OTHER UPDATES:
Radiology report reviewed�he suspects pneumonia however, white count and temperature are normal, and she is rather edematous with diffuse Rales and significantly elevated BNP. COVID was also checked as she has lymphocytopenia which was negative.
She was here about 6 weeks ago with influenza.
Past History
Past History
ED Past Medical History: Arrthythmia and HTN
ED Past Surgical History: Gynecological and Orthopedic
Social History
Tobacco: Non-smoker
Living: with family
Employment: Retired
Phy Exam
Physical Exam
Physical Exam:
See HPI
Scores
Heart Failure Risk
Heart Failure Risk Score: Not Applicable
Course
Orders/Labs/Results
Orders:
Orders
10/24/24 21:33
Portable Chest Xray [CR Chest Portable - 1 View] Stat
Comment:
Reason For Exam: sob
Reason Study Needs to be Portable: Patient Unstable
10/24/24 21:34
Bipap [RESP] Urgent
Patient to use own unit?: No
Inspiratory Pressure (cm H2O): 12
Expiratory Pressure (cm H2O): 5
10/24/24 21:39
Basic Metabolic Panel Urgent
Complete Blood Count/With Diff Urgent
Magnesium Urgent
NT-proBNP Urgent
Troponin I Urgent
10/24/24 21:46
Furosemide [Lasix] 40 mg IV NOW STA
10/24/24 22:15
COVID-19 Antigen Urgent
Source: Nasal Swab
10/24/24 22:51
Influenza A+B Rapid Molecular Urgent
STEVEN Source: Nasal Swab
Specimen Description:
Abnormal Lab Results
10/24/24
21:39
MCHC 32.6 L g/dL
(33.0-37.0)
RDW 14.7 H %
(11.5-14.5)
Abs Immat Gran (auto) 0.1 H 10^3/uL
(0-0.05)
Absolute Neuts (auto) 8.5 H 10^3/uL
(1.4-6.5)
Immature Gran % 0.6 H %
(0-0.5)
Neutrophils % 81.3 H %
(42.2-75.2)
Lymphocytes % 11.3 L %
(20.5-51.1)
BUN 22 H mg/dl
(7-17)
Glucose 175 H mg/dl
(70-99)
10/24/24 21:39
10/24/24 21:39
Vital Signs
Initial and Last Documented VS:
Initial Vital Signs
BP
143/109
10/24/24 21:33
Last Documented Vital Signs
Temp Pulse Resp BP Pulse Ox
36.8 C 94 21 103/76 99
10/24/24 21:36 10/24/24 23:00 10/24/24 23:00 10/24/24 23:00 10/24/24 22:45
*Critical Care Note
Total Time (30-74mins, 75-104mins- exclusive of procedures): 65min
comment:
The patient was markedly hypoxic upon arrival initially requiring nonrebreather mask and we quickly placed her on BiPAP. She continues to markedly improved. Sats of markedly improved. She was frequently reassessed while in the emergency
department.
ED Attending Note
-
Portions of this chart may have been created with voice recognition software.� Occasional wrong word or��sound alike� substitutions may have occurred due to the inherent limitations of voice recognition software.
Discharge Plan
Departure
Patient Disposition: Admit
Date of Disposition: 10/24/24
Time of Disposition: 22:22
Presentation/result/management discussed w/ accepting MD/DO: Hospitalist
Discharge Problem:
Pulmonary edema
Prescriptions:
No Action
alendronate 70 MG tablet
70 mg PO ADAME
simvastatin 20 MG tablet
20 mg PO HS
Eliquis 2.5 mg Tablet
2.5 mg PO BID
acetaminophen 325 mg Tablet
650 mg PO Q4HPRN PRN (Reason: mild pain/BAH/temp> 100.4F) Qty: 60 0RF
amiodarone 200 mg Tablet
200 mg PO DAILY
magnesium hydroxide [Milk of Magnesia] 400 mg/5 mL Suspension
30 ml PO DAILYPRN PRN (Reason: constipation)
bisacodyl [Dulcolax (bisacodyl)] 10 mg Suppository
10 mg MS DAILYPRN PRN (Reason: mom ineffective)
Fleet Enema 19-7 gram/118 mL Enema
118 ml MS DAILYPRN PRN (Reason: dulcolax ineffective)
diclofenac sodium [Voltaren] 1 % Gel
2 g TOPICAL TID
metoprolol succinate 50 mg tablet extended release 24 hr
50 mg PO DAILY
Referrals:
Emmett Hernandez MD [Family Provider] -
Interventions
Interventions:
*Risk Screen - Suicide Last Done: 10/24/24 21:52
*General Assessment Last Done: 10/24/24 21:36
*Neglect/Abuse Screening Last Done: 10/24/24 21:36
*ED- Fall Risk Assessment Last Done: 10/24/24 21:52
*ED COVID-19 Vaccine History Last Done: 10/24/24 21:52
ED- Cardiac Assessment Last Done: 10/24/24 21:49
ED- Pulmonary Assessment Last Done: 10/24/24 21:49
Discharge Date and Time
Print Language: LUXEMBOURG[place]
[2024-10-24 21:45] LABS: % Basophils 0.8 % (0-2); % Eosinophils 0.6 % (0-6); % Immature Granulocytes 0.6 % (0-0.5); % Lymphocytes 11.3 % (20.5-51.1); % Monocytes 5.4 % (1.7-9.3); % Neutrophils 81.3 % (42.2-75.2); Absolute Basophils 0.1 10^3/uL (0-0.2); Absolute Eosinophils 0.1 10^3/uL (0-0.7); Absolute Immature Granulocytes 0.1 10^3/uL (0-0.05); Absolute Lymphocytes 1.2 10^3/uL (1.2-3.4); Absolute Monocytes 0.6 10^3/uL (0.1-0.6); Absolute Neutrophils 8.5 10^3/uL (1.4-6.5); Hematocrit 42.3 % (37.0-47.0); Hemoglobin 13.8 g/dL (12.0-16.0); Mean Corp Hgb Conc. 32.6 g/dL (33.0-37.0); Mean Platelet Volume 9.4 fL (7.4-10.4); Nucleated Red Blood Cells % 0 %; Platelet Count 270 10^3/uL (130-400); Red Cell Dist. Width 14.7 % (11.5-14.5); White Blood Cell Count 10.4 10^3/uL (4.8-10.8)
[2024-10-24] MEDS: LASIX 40 MG IV (22:04)
[2024-10-24 22:06] LABS: Blood Urea Nitrogen 22 mg/dl (7-17); Calcium 9.4 mg/dl (8.4-10.2); Carbon Dioxide 25 mmol/L (22-30); Chloride 106 mmol/L (98-107); Estimated Creatinine Clearance 42 ml/min; Glucose 175 mg/dl (70-99); Magnesium 2.2 mg/dl (1.6-2.3); Sodium 138 mmol/L (135-145); eGFR > 60.00
[2024-10-24 22:14] LABS: NT-proBNP 4160 pg/ml; Troponin I 0.019 ng/ml
[2024-10-24 22:39] LABS: COVID-19 Antigen Negative (Negative)
--- NOTE | 2024-10-24 22:51 | HPS.HSE ---
Family Physician
-
Family Physician: Emmett Hernandez MD
Chief Complaint
-
SOB
History of Present Illness
Patient is an 89y F with PMH significant for A-Fib, hypertrophic cardiomyopathy and SSS s/p PPM who presents to ED complaining of SOB. Patient states that she has noted significant swelling in the LEs for the past 2 weeks or so. No pain in the
legs. No chest pain or palpitations. Patient reports some SOB with activity over the past week or so. This evening she lie down and elevated her legs as she had been instructed and she became markedly short of breath. 911 was called and patient
was brought to ED for further evaluation and treatment.
She initially was markedly hypoxemic and was placed on NIPPV in the ED.
At the time of my examination, patient feels improved from initial arrival. She is saturating 100% on current NIPPV settings.
Patient denies any prior history of CHF / diuretic use / etc.
She denies any recent medication changes. Patient does state that she has been coughing today. No fevers or chills. No known sick contacts.
Medical History
Past Medical History
Past Medical History: Reports Other
Additional Past Medical History:
Aortic insufficiency
A-fib
Hyperlipidemia
Pacemaker
Hypertrophic cardiomyopathy
Sick sinus syndrome
Tachybradycardia syndrome
PAC
Prolapsed bladder
Rhabdo
Left hip fracture
Past Surgical History: Reports Other
Additional Past Surgical History:
Prior surgery
Hip surgery
Appendectomy
Social History
Tobacco: Non-smoker
Alcohol: None
Drug: None
Personal: Single
Living: Alf
Family History
Family History: Not pertinent
Allergies / Home Medications
Allergies reflects when Allergies were last updated in [facility].
Home Medications with original date entered in [facility]
Allergy/Medication List:
Allergies
Allergy/AdvReac Type Severity Reaction Status Date / Time
No Known Allergies Allergy Verified 08/31/24 17:44
Home Medications
alendronate 70 mg tablet 70 mg PO ADAME osteoporosis 12/07/18
simvastatin 20 mg tablet 20 mg PO HS High cholesterol 12/07/18
apixaban 2.5 mg tablet (Eliquis) 2.5 mg PO BID Blood Clot Prevention/Tx 05/29/24
acetaminophen 325 mg tablet 650 mg (2 x 325 mg) PO Q4HPRN PRN mild pain/BAH/temp> 100.4F #60 tabs 06/03/24
amiodarone 200 mg tablet 200 mg PO DAILY 10/24/24
bisacodyl 10 mg rectal suppository (Dulcolax (bisacodyl)) 10 mg NC DAILYPRN PRN mom ineffective 10/24/24
diclofenac sodium 1 % topical gel 2 g topical TID 10/24/24
magnesium hydroxide 400 mg/5 mL oral suspension (Milk of Magnesia) 30 ml PO DAILYPRN PRN constipation 10/24/24
metoprolol succinate 50 mg tablet,extended release 24 hr 50 mg PO DAILY 10/24/24
sodium phosphates 19 gram-7 gram/118 mL enema (Fleet Enema) 118 ml NC DAILYPRN PRN dulcolax ineffective 10/24/24
Review of Systems
-
History Source: Patient
A 12 point ROS was completed and negative except as noted: Yes
Constitutional: Reports Fatigue; Denies Fever or Chills
Respiratory: Reports Cough and Trouble Breathing
Cardiac: Denies Chest Pain or Palpitations
Abdomen/GI: Denies Abdominal Pain, Nausea, Vomiting or Diarrhea
: Denies Dysuria or Flank Pain
Musculoskeletal: Reports Edema; Denies Joint Pain
Neurological: Denies Dizzy or Headache
Psych: Denies Depression or Anxiety
Physical Exam
Vital Signs
Vital Signs
Temp Pulse Resp BP Pulse Ox
98.2 F 96 22 114/89 99
10/24/24 21:36 10/24/24 22:45 10/24/24 22:45 10/24/24 22:45 10/24/24 22:45
Physical Exam
General: Other (89y F in mild distress due to dyspnea on NIPPV.)
HEENT: Moist mucous membranes, PERRLA and Other (NIPPV mask in place. )
Respiratory: Other (Coarse breath sounds throughout. No significant change with cough.)
Cardiac: S1/S2, Irregular Rhythm and Murmur (II/ ABIDA)
GI: Soft, Non Tender, Non Distended and Normal Bowel Sounds
Musculoskeletal: Other (3+ pitting edema b/l LEs to the thighs bilaterally.)
Neuro: AO x 3
Laboratory Results
-
10/24/24 21:39
10/24/24 21:39
Laboratory Results
Total Bilirubin Cancelled 10/24/24 21:39
AST Cancelled 10/24/24 21:39
ALT Cancelled 10/24/24 21:39
Alkaline Phosphatase Cancelled 10/24/24 21:39
Troponin I 0.019 ng/ml 10/24/24 21:39
Impression/Plan
-
A/P: Patient is an 89y F with PMH significant for A-Fib, hypertrophic cardiomyopathy and SSS who presents to ED complaining of SOB.
Acute Hypoxemic Respiratory Failure
Acute on Chronic HFpEF
Hypertrophic Cardiomyopathy
- Admit to IMU for further evaluation and treatment.
- Clinical picture seems most c/w pulmonary edema / CHF given LE edema, diffuse infiltrates, orthopnea, etc.
- Some cough today and rather rhonchorous on exam - but no fever, leukocytosis, sick contacts, etc.
- Check COVID, Flu. Check procal for clarification.
- Observe off of abx for now and follow temp curve, symptoms, etc.
- IV diuresis with Lasix 20mg BID for now.
- Follow I/Os, daily weights, etc.
- Update Echo (last 05/2024 with LVEF = 60-65%, diastolic dysfunction, mild - mod MR and mod - severe TR).
- Cardiology evaluation for additional recommendations.
Paroxysmal Atrial Fibrillation
SSS s/p PPM
- Stable. Heart rates fairly well-controlled despite acute presentation.
- Monitor on telemetry.
- Continue metoprolol with holding parameters. Continue Amio.
- Continue Eliquis for stroke risk reduction.
DVT Prophylaxis: On Eliquis.
Code Status: Full
--- NOTE | 2024-10-24 23:30 | EDRN ---
Report received, and assumed care of this patient.
[2024-10-24 23:51] LABS: Potassium 3.9 mmol/L (3.5-5.1)
[2024-10-25] VITALS (12 sets, daily range): BP systolic 87–140; BP diastolic 59–89; PULSE 2–94; BMI 27.4
[2024-10-25 00:07] LABS: Procalcitonin < 0.05 ng/ml (0.0-0.25)
[2024-10-25 03:35] LABS: Hematocrit 39.7 % (37.0-47.0); Hemoglobin 13.5 g/dL (12.0-16.0); Mean Corpuscular Hgb 30.9 pg (27.0-31.0); Mean Corpuscular Volume 90.8 fL (81.0-99.0); Mean Platelet Volume 9.8 fL (7.4-10.4); Platelet Count 257 10^3/uL (130-400); Red Blood Cell Count 4.37 10^6/uL (4.20-5.40); Red Cell Dist. Width 14.6 % (11.5-14.5); White Blood Cell Count 15.5 10^3/uL (4.8-10.8)
--- NOTE | 2024-10-25 03:49 | PTCARENOTE ---
received verbal report from ED RN. Patient transferred from ED without any issues. Patient on bipap when she came up from ED, now she is on 4L NC and sating at 96%. Afib on the monitor. Patient incontinent with purewick in place draining clear
urine. daughter called and was updated. Patient resting in bed with call razo in reach. assessment and vital signs as charted.
[2024-10-25 03:59] LABS: Blood Urea Nitrogen 21 mg/dl (7-17); Calcium 9.3 mg/dl (8.4-10.2); Carbon Dioxide 27 mmol/L (22-30); Chloride 103 mmol/L (98-107); Estimated Creatinine Clearance 46 ml/min; Glucose 109 mg/dl (70-99); Potassium 3.9 mmol/L (3.5-5.1); Sodium 140 mmol/L (135-145); eGFR > 60.00
[2024-10-25 04:09] LABS: Troponin I 0.015 ng/ml
[2024-10-25] MEDS: ELIQUIS 2.5 MG PO (08:14)
[2024-10-25] MEDS: PACERONE 200 MG PO (08:14)
[2024-10-25] MEDS: TOPROL XL 50 MG PO (08:15)
[2024-10-25] MEDS: LASIX 20 MG IV ×2 (08:15→17:29)
[2024-10-25] MEDS: KLOR-CON 20 MEQ PO ×2 (08:15→19:37)
[2024-10-25 09:19] LABS: Troponin I 0.013 ng/ml
--- NOTE | 2024-10-25 09:27 | CON.CAR ---
Addendum entered and electronically signed by Heber Llamas MD 10/25/24 13:57:
I saw and examined the patient.
The Aircrewman's note was reviewed and I agree with the note.
Comment: Briefly, 89-year-old woman past medical history of atrial fibrillation, permanent pacemaker, possible hypertrophic cardiomyopathy and now presenting with acute decompensated heart failure.
Patient was volume overloaded on exam this a.m., agree with IV Lasix twice daily and wean oxygen as able
Follow renal function/electrolytes and daily weights closely
Transthoracic echocardiogram here with newly reduced LV systolic function, EF 35 to 40%
Would continue metoprolol XL
Consider adding HORTENCIA/ARB as blood pressure tolerates
History of atrial fibrillation and rates have been rapid at times here
Continue metoprolol and amiodarone for rate control, goal heart rate less than 110 bpm
Eliquis for cardioembolic prophylaxis
Could consider direct-current cardioversion in the future, possibly as an outpatient, if she remains in atrial fibrillation
Rest per Nerissa Nowak
Original Note:
Consultation
Consultation Request
Date/Time Consultation Requested: 10/25/24 at 0234
Date/Time Consultation Performed: 10/25/24 at 0927
Requesting Provider: Dr. Villarreal
Performing Provider: Dr. Llamas
Reason for Consultation: Acute HF, Afib
Medical History
-
History of Present Illness:
Patient was sent to ER last night from long-term care at [facility] for SOB and hypoxia and is now admitted with acute HF and cardiology has been consulted. The patient has dementia, but can recall that she lives long-term at [facility] that her
symptoms started suddenly last night. I then called her daughter/MERCEDES Travis, who is also an RN and she told me the patient has had increased LE edema for the last month that has been treated with intermittent doses of Lasix at [facility] without
improvement. The patient has had increasing JAMES, but no symptoms of orthopnea until last night. The patient does not have a known history of CHF and was not chronically on a diuretic when she moved to [facility]. Patient previously followed with
Dr. Meehan, who is now retired, and had last seen him 01/18/2024 but at that time was not taking a diuretic. Patient had in her office note that she had a history of hypertrophic cardiomyopathy, but no previous echo that I can find has any
evidence of an outflow tract obstruction or significant gradient. Patient also with history of paroxysmal A-fib but appears more persistent lately. Her last device check was when she was admitted here in May with delirium in the setting of UTI.
PMH:
Chronic HFpEF
Persistent A-fib
Chronic amiodarone therapy
Chronic Eliquis OAC
s/p Medtronic DC PPM for tachy-radha 2019
Possible h/o hypertrophic cardiomyopathy
HLD
AI
Dementia
DNR code status
Past Medical History
Past Medical History: Other (in HPI)
Past Surgical History: Appendectomy, Gynecological (breast surgery), Orthopedic and Tonsilectomy
Social History
Tobacco: Former Smoker (remote)
Alcohol: Occasional
Drug: Former User
Living: Senior Care (Living at [facility] since 06/2024)
Family History
Family History: Cancer, Diabetes and Other (CHF)
Allergies / Home Medications
Allergy/AdvReac Type Severity Reaction Status Date / Time
No Known Allergies Allergy Verified 08/31/24 17:44
�Medication �Instructions �Recorded �Confirmed �Type
alendronate 70 mg tablet 70 mg PO ADAME osteoporosis 12/07/18 10/24/24 History
simvastatin 20 mg tablet 20 mg PO HS High cholesterol 12/07/18 10/24/24 History
apixaban 2.5 mg tablet (Eliquis) 2.5 mg PO BID Blood Clot 05/29/24 10/24/24 History
Prevention/Tx
acetaminophen 325 mg tablet 650 mg (2 x 325 mg) PO Q4HPRN PRN 06/03/24 10/24/24 Rx
mild pain/BHA/temp> 100.4F #60 tabs
amiodarone 200 mg tablet 200 mg PO DAILY Arrhythmia 10/24/24 10/24/24 History
bisacodyl 10 mg rectal suppository 10 mg MT DAILYPRN PRN mom 10/24/24 10/24/24 History
(Dulcolax (bisacodyl)) ineffective
diclofenac sodium 1 % topical gel 2 g topical TID Pain 10/24/24 10/24/24 History
magnesium hydroxide 400 mg/5 mL 30 ml PO DAILYPRN PRN constipation 10/24/24 10/24/24 History
oral suspension (Milk of Magnesia)
metoprolol succinate 50 mg 50 mg PO DAILY Heart 10/24/24 10/24/24 History
tablet,extended release 24 hr Disease/Condition
sodium phosphates 19 gram-7 118 ml MT DAILYPRN PRN dulcolax 10/24/24 10/24/24 History
gram/118 mL enema (Fleet Enema) ineffective
Review of Systems
-
History Source: Patient and Family (daughter by phone)
All other systems: Negative unless noted
Physical Exam
Vital Signs
Temp Pulse Resp BP Pulse Ox
98.6 F 113 18 123/79 95
10/25/24 03:27 10/25/24 04:00 10/25/24 04:00 10/25/24 04:00 10/25/24 04:00
GEN: NAD. Awake and alert, knows she is in a hospital, but not the name
HEENT: EOMI, MMM
LUNGS: 4 L NC. Clear anterolaterally, no wheeze
CV: Afib on tele. Irreg irreg, S1/S2, no murmur
ABD: soft, BS+, NT, ND
EXT: +2-3 pitting B/L LE edema. No clubbing, cyanosis or lesions
NEURO: Gross non-focal
SKIN: Warm, dry and pink. No rash
Lab Results
10/25/24 03:13
10/25/24 03:13
Troponin I 0.013 ng/ml 10/25/24 08:47
Rft-B-Tcpqiuccmwg Pept 4160 pg/ml 10/24/24 21:39
Impression / Plan
-
PCP: Dr. Emmett Hernandez
Primary Pipe Processor: previously Dr. Meehan, was scheduled to see Dr. Kaur 07/2024, but cancelled
Impression:
Admitted with SOB and hypoxia 10/24/24
Acute hypoxic respiratory failure
Acute on chronic HFpEF
Persistent A-fib
Chronic amiodarone therapy
Chronic Eliquis OAC
s/p Medtronic DC PPM for tachy-radha 2019
Possible h/o hypertrophic cardiomyopathy
HLD
AI
Dementia
DNR code status
ECHO 01/2019: EF 55 to 60%, normal RV and LV function, mild AI, mild MR, mild TR
ECHO 05/30/2024: EF 60 to 65%, stage II diastolic dysfunction, mild to moderate MR, mild to moderate AR, moderate to severe TR, PAP 36 mmHg, mildly dilated RA
Plan:
-Patient was sent to ER last night from long-term care at [facility] for SOB and hypoxia and is now admitted with acute HF and cardiology has been consulted. The patient has dementia, but can recall that she lives long-term at [facility] that her
symptoms started suddenly last night. I then called her daughter/MERCEDES Travis, who is also an RN and she told me the patient has had increased LE edema for the last month that has been treated with intermittent doses of Lasix at [facility] without
improvement. The patient has had increasing JAMES, but no symptoms of orthopnea until last night. The patient does not have a known history of CHF and was not chronically on a diuretic when she moved to [facility]. Patient previously followed with
Dr. Meehan, who is now retired, and had last seen him 01/18/2024 but at that time was not taking a diuretic. Patient had in her office note that she had a history of hypertrophic cardiomyopathy, but no previous echo that I can find has any
evidence of an outflow tract obstruction or significant gradient. Patient also with history of paroxysmal A-fib but appears more persistent lately. Her last device check was when she was admitted here in May with delirium in the setting of UTI.
-ECG reviewed by me shows A-fib and HR is 98
-Patient admitted with new diagnosis of acute HFpEF in the setting of acute hypoxic respiratory failure. Remains on 4 L NC, but was not previously on supplemental O2 therapy
-Lasix 20 mg IV BID ordered, patient was taking intermittent doses of Lasix PO prior to admission, but was not on a standing dose. Pending diuretic response would consider increasing to Lasix 40 mg IV BID
-Dry weight at last office visit 01/18/2024 was 131 lbs and patient weighs 140 lbs on 10/25/2024
-Last echo 05/30/2024 showed preserved EF with stage II diastolic dysfunction, but no evidence of LV wall thickening and no evidence of outflow tract gradient. Patient reportedly had a history of hypertrophic cardiomyopathy, but no evidence of this
on echo
-Patient with mild to moderate MR and mild to moderate aortic regurgitation on echo 05/30/2024, will repeat study
-Outpatient dose of Toprol XL 50 mg daily has been continued
-Will add lisinopril 2.5 mg daily
-Will not prescribe SGLT2 at this time given history of UTI resulting in delirium 05/2024 and increased risk of significant infection in a patient with h/o dementia
-Patient with previous paroxysmal A-fib that was asymptomatic, but by review of ECGs now appears to be more persistent A-fib. Will arrange for Scripped DC PPM device check
-Outpatient dose of Eliquis 2.5 mg BID (age 89, wt 63.6 kg, Cre 0.7) ordered, but correct dose is 5 mg BID. Will change for now, but will need to lower dose of 2.5 mg BID once weight is less than/equal to 60 kg with diuresisor if Cre increased to
1.5 or greater
-Patient previously followed with Dr. Meehan, but he is now retired. Patient now living long-term at [facility] and will presumably be brought to for admissions. Will arrange for local cardiology follow-up
-Talked with patient's daughter, Angy, for 13 minutes 11 seconds by phone this morning. Angy is an RN and is also the patient's POA. She reports that the patient had an advanced directive which Angy is now following that indicated patient
would not want any invasive measures including desire for DNR/DNI CODE STATUS. I changed CODE STATUS in [facility] and updated primary nursing and hospitalist attending/resident
--- NOTE | 2024-10-25 12:15 | W.PN.HOSP.TC ---
Addendum entered and electronically signed by Idalia Villarreal MD 10/25/24 14:09:
I saw and evaluated the patient independently. I reviewed the resident�s note and agree with findings and plan as documented by Dr. Kevin.
GENERAL: well developed, well nourished, female in no apparent distress
HEENT:NC/AT O2 requirements--NC
HEART: regular rate and rhythm, +S1, +S2
LUNGS : crackles at right base
ABDOM: soft, nontender, nondistended, + bowel sounds
EXT: no cyanosis, clubbing-- 1+ LE edema
NEUROLOGIC: grossly intact
Acute hypoxemic respiratory failure secondary to acute on chronic HFpEF (no prior diagnosis) or hypertrophic cardiomyopathy--had NIPPV, BiPAP, and now on NC O2--much improved--can downgrade to tele--apprec cards--cont diuresis--proBNP 4160 on
presentation--daily weights, I/Os--ECHO with global hypokinesis and EF 35-40%--SGLT2 not indicated at this time as per cardiology
Persistent A-fib--as per cardiology note--cont amiodarone, metoprolol, Eliquis
Hyperlipidemia--Continue atorvastatin 10 mg
DVT proph--Eliquis
code status--DNR
Original Note:
Today's Communication/Plan
-
Patient to continue treatment with IV diuresis. Continue try to wean off oxygen supplementation to room air as possible
Assessment / Plan
Assessment / Plan
Assessment:
81-year-old female with past medical history significant for A-fib, hypertrophic cardiomyopathy and sick sinus syndrome status post PPM who presented to the [facility] emergency department complaining of shortness of breath from her facility
at [facility]. She has noticed significant swelling in her bilateral lower extremities for the past 2 weeks or so without any pain. She also has had no reported chest pain or palpitations, but reports shortness of breath with activity and exertion.
Last night she was lying down and elevating her legs as she was instructed to however became markedly short of breath. She was found to be very hypoxic with around 60% oxygen level. Due to her persistent hypoxia, patient was sent over to the
[facility] for further evaluation and treatment. In the ED she had a chest x-ray done which showed marked pulmonary edema. She was initially very hypoxic and was placed on NIPPV in the ED. Patient was also started on IV diuretics with Lasix.
Patient continued to do much better with treatment and shortness of breath improved much throughout her stay. She was eventually transitioned down to BiPAP and then down to mid flow. She is currently on 3 L of mid flow upon examination.
Cardiology was consulted due to her persistent A-fib, and further management of diuretics due to her recent onset of CHF. As per cardiology, patient has history of hypertrophic cardiomyopathy and has been treated intermittently with Lasix at [facility]. She also used to follow Dr. Meehan for cardiology but he has now since retired.
Chest X-Ray (10/24/2024)-
Lungs: Severe bilateral interstitial and airspace opacities worst in the right lower lung zone. No significant pleural effusions. No visualized pneumothorax.
IMPRESSION:
Severe multifocal pneumonia worst in the right base.
EKG (10/25/2024)-
ATRIAL FIBRILLATION
LEFT AXIS DEVIATION
LEFT VENTRICULAR HYPERTROPHY WITH QRS WIDENING AND REPOLARIZATION ABNORMALITY
( R in aVL , [employer] product , [employer] )
CANNOT RULE OUT SEPTAL INFARCT (CITED ON OR BEFORE 07-DEC-2018)
ABNORMAL ECG
WHEN COMPARED WITH ECG OF 24-OCT-2024 21:37,
NO SIGNIFICANT CHANGE WAS FOUND
Plan:
# Acute hypoxemic respiratory failure secondary to acute on chronic HFpEF (no prior diagnosis) or hypertrophic cardiomyopathy
-Patient remained on NIPPV in the ED, downgraded to BiPAP then further weaned off to mid flow. Currently on 3 L oxygen supplementation
-Patient downgraded from IMU to telemetry as she has been doing well
-proBNP 4160 on presentation
-Cardiology consulted, cardiology input appreciated
-Continue IV Lasix with 20 mg twice daily, possibly up to 40 mg
-Continue monitoring weights, has already lost 5 kg since treatment started in the ED
-Awaiting echo results
-Continue weaning off of supplemental oxygen, currently on 3 L mid flow
-Chest x-ray as above, findings most likely correlate with pulmonary edema rather than pneumonia
-Procalcitonin negative, will continue to stay off of antibiotics, no fever, mild leukocytosis
-Follow I/Os, daily weights
-SGLT2 not indicated at this time as per cardiology
# Paroxysmal A-fib
-Persistent as seen on EKG again
-Patient to continue on amiodarone 200 mg daily
-Continue metoprolol
-Continue with correct dose of Eliquis at 5 mg twice daily, will need to switch to 2.5 mg if weight is less than or equal to 60 kg or creatinine increases to 1.5 or greater
-As per cardiology, patient was arranged with [employer] PPM device check
# Hyperlipidemia
-Continue atorvastatin 10 mg
Anticipated Discharge: 24 - 48 hours
Subjective/Interval History
-
Date of Service: October 25, 2024
Patient has been feeling much better since last night, reports much better breathing and much less shortness of breath. Patient continues to be in A-fib but but she has been dealing with it for a long time. Reports no other acute concerns at this
point. Still has swelling in bilateral legs with pitting edema.
Objective Data
-
Labs:
Laboratory Results
10/25/24
03:13
WBC 15.5 H
Hgb 13.5
Hct 39.7
Plt Count 257
Sodium 140
Potassium 3.9
Chloride 103
Carbon Dioxide 27
BUN 21 H
Creatinine 0.7
Glucose 109 H
Calcium 9.3
Vital Signs:
Vital Signs
Temp Pulse Resp BP Pulse Ox
99.7 F 113 18 123/79 95
10/25/24 07:35 10/25/24 04:00 10/25/24 04:00 10/25/24 04:00 10/25/24 04:00
I&O
10/24/24 10/25/24 10/26/24
06:59 06:59 06:59
Output Total 1600 / 1600
Balance -1600 / -1600
Review of Systems
-
History Source: Patient
Constitutional: Denies Fever, Fatigue or Chills
EENT: Reports No Symptoms Reported
Respiratory: Denies Cough, Trouble Breathing or Wheezing
Cardiac: Denies Chest Pain, Palpitations, Syncope or Orthopnea
Abdomen/GI: Denies Abdominal Pain, Nausea or Vomiting
Genitourinary: Reports No Symptoms
Musculoskeletal: Reports No Symptoms
Neuro: Denies Headache, Weakness or Lightheadedness
Endocrine: Reports No Symptoms
Physical Exam
-
General: Well Developed, Well Nourished, No Apparent Distress, Comfortable, Conversant and Appears Chronically Ill
HEENT: Normocephalic, Atraumatic and Oxygen (3L mid flow)
Respiratory: Crackles (Right lower lung base crackles) and Non Labored Respirations
Cardiac: S1/S2 and Irregular Rhythm
GI: Soft, Nontender and Nondistended
Musculoskeletal: No Clubbing, No Cyanosis and No Edema
Skin: Warm
Neuro: Awake, Alert, Oriented and AO x 3
Psych: Calm
Data Reviewed
-
Diagnostic Radiology: Report Reviewed by me, Discussed with Physician, Discussed with Nurse and Discussed with Patient
Medical Tests (Nuc Med, Echo etc): Report Reviewed by me, Discussed with Physician, Discussed with Nurse and Discussed with Patient
Labs: Labs Reviewed by me
--- NOTE | 2024-10-25 14:15 | CM ---
Addendum entered by Valentina Shepard 10/25/24 14:19:
Patient is a bedhold per liaison at [facility]>
Original Note:
Patient seen at bedside with physicians. Patient stated that she did not remeber where she lived right now, then, stated yes it was [address] [facility]. Patient is a LTC patient at SNF. Patient PCP is Dr. Hernandez and CM confirmed with Liaison at [facility]
patient status, await confirmation of bed hold status. Patient plan is to return to SNF. Patient may need auth pending recommendation for skilled needs. CM will continue to follow for discharge planning needs.
Plan; return to SNF; [facility] watch for Auth need pending recommendation for skilled needs.
--- NOTE | 2024-10-25 18:22 | PTCARENOTE ---
[facility] being [facility]. report given to Laura. pt is currently eating dinner and then will transfer
[2024-10-25] MEDS: ELIQUIS 5 MG PO (19:36)
[2024-10-25] MEDS: LIPITOR 10 MG PO (21:23)
--- NOTE | 2024-10-25 21:30 | PTCARENOTE ---
received pt from IMU via bed. AAOx3, no complaints at this time. Oriented to floor, call razo within reach
[2024-10-26 03:50] VITALS: BP 113/69
[2024-10-26 07:24] LABS: Hematocrit 36.7 % (37.0-47.0); Hemoglobin 12.2 g/dL (12.0-16.0); Mean Corp Hgb Conc. 33.2 g/dL (33.0-37.0); Mean Corpuscular Hgb 30.6 pg (27.0-31.0); Mean Platelet Volume 10.1 fL (7.4-10.4); Platelet Count 233 10^3/uL (130-400); Red Blood Cell Count 3.99 10^6/uL (4.20-5.40); Red Cell Dist. Width 14.7 % (11.5-14.5); White Blood Cell Count 9.7 10^3/uL (4.8-10.8)
[2024-10-26 07:25] VITALS: BP 134/81
[2024-10-26 07:35] LABS: Blood Urea Nitrogen 16 mg/dl (7-17); Calcium 8.9 mg/dl (8.4-10.2); Carbon Dioxide 34 mmol/L (22-30); Chloride 98 mmol/L (98-107); Estimated Creatinine Clearance 46 ml/min; Glucose 89 mg/dl (70-99); Potassium 3.9 mmol/L (3.5-5.1); Sodium 135 mmol/L (135-145); eGFR > 60.00
[2024-10-26 09:12] VITALS: BMI 26.6
[2024-10-26] MEDS: ELIQUIS 5 MG PO ×2 (09:38→19:53)
[2024-10-26] MEDS: PACERONE 200 MG PO (09:38)
[2024-10-26] MEDS: KLOR-CON 20 MEQ PO ×2 (09:40→19:53)
[2024-10-26] MEDS: LASIX 20 MG IV ×3 (09:40→17:11)
[2024-10-26] MEDS: TOPROL XL 50 MG PO (09:40)
[2024-10-26] MEDS: FLUSH (NSS) 2 FLUSH IV ×2 (09:41→17:11)
--- NOTE | 2024-10-26 10:30 | W.PN.CARDCBS ---
Addendum entered and electronically signed by Harika Chase MD 10/26/24 12:07:
I saw and examined the patient.
[employer]'s note was reviewed and I agree with the note.
Comment: She is laying in the bed. She denies chest pain and palpitations. She has some underlying memory loss but is able to give some information at the bedside today. She continues with significant lower extremity edema but is diuresing well.
Exam otherwise is unchanged. She continues on oxygen which is being weaned down.
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 This was discussed with her daughter. They maintain conservative management of medical
conditions. At this time we will work on guideline directed medical treatment as she tolerates.
-Continue Toprol-XL
-Low-dose lisinopril added to her regimen
-Continue to assess for appropriateness of guideline directed medical treatment.
-Lasix 20 mg IV extra was given today. Continue to follow input/output and daily weights.
-Consider on discharge given that meals may be salty at [place] [facility] perhaps Lasix 60 mg oral daily with close follow-up on BMP and proBNP.
-She has persistent atrial fibrillation with 67% burden on device check 10/25/2024. Continue oral anticoagulation. Watch for falls. Continue rate control.
Telemetry reviewed.
I have spent 51 minutes izfr-he-zyfe and veb-blwy-sy-face time in discussion, review of records. In addition my physician assistant director of public works has also spent time. There is been communication also with patient's daughter.
Original Note:
Today's Communication / Plan
-
Cont Lasix 20 mg IV BID
EF is worse, will review with daughter by phone later today
Impression / Plan
-
PCP: Dr. Emmett Hernandez
Primary Hydroelectric Plant Operator: previously Dr. Meehan, was scheduled to see Dr. Kaur 07/2024, but cancelled
Impression:
Admitted with SOB and hypoxia 10/24/24
Acute hypoxic respiratory failure
Acute on chronic HFrEF
Newly diagnosed CM EF 35 to 40% by echo 10/25/2024
Persistent A-fib, 67% burden on device check 10/25/24
Chronic amiodarone therapy
Chronic Eliquis OAC
s/p Medtronic DC PPM for tachy-radha 2018
Possible h/o hypertrophic cardiomyopathy
HLD
AI
Dementia
DNR code status
ECHO 01/2019: EF 55 to 60%, normal RV and LV function, mild AI, mild MR, mild TR
ECHO 05/30/2024: EF 60 to 65%, stage II diastolic dysfunction, mild to moderate MR, mild to moderate AR, moderate to severe TR, PAP 36 mmHg, mildly dilated RA
Echo 10/25/2024: EF 35 to 40%, moderate concentric LVH, normal RV size and function, mild to moderate MR, mild to moderate aortic regurgitation, moderate to severe TR with PAP 35 to 40 mmHg
Plan:
-EF is newly reduced to 35 to 40% by echo 10/25/2024. We will call discussed with her daughter, Angy, on 10/26/2024, but when we had talked on the phone 10/25/2024 she had told me that her mother did not want any invasive therapy and they would only
want medical therapy. Will confirm that with phone call 10/26/2024.
-Oxygenation has improved from 4 L NC overnight to 2 L NC 10/26/2024
-Weight is down 4 lbs overnight. Dry weight at last office visit 01/18/2024 was 131 lbs.
-Continue Lasix 20 mg IV BID, patient was taking intermittent doses of Lasix PO prior to admission, but was not on a standing dose.
-Outpatient dose of Toprol XL 50 mg daily has been continued
-Added lisinopril 2.5 mg daily this admission
-Will not prescribe SGLT2 at this time given history of UTI resulting in delirium 05/2024 and increased risk of significant infection in a patient with h/o dementia
-Patient with previous paroxysmal A-fib that was asymptomatic, but by review of ECGs now appears to be more persistent A-fib. Medtronic DC PPM device check on 10/25/2024 and EKG overall A-fib burden of 67% and patient has been in A-fib persistently
for the last 47 days. Tele reviewed by me looks like Afib on 10/26/24
-Outpatient dose of Eliquis 2.5 mg BID (age 89, wt 61.8 kg, Cre 0.7) ordered, but correct dose is 5 mg BID. Will change for now, but will need to lower dose of 2.5 mg BID once weight is less than/equal to 60 kg with diuresis or if Cre increased to
1.5 or greater
-Patient previously followed with Dr. Meehan, but he is now retired. Patient now living long-term at [facility] and will presumably be brought to for admissions. Will arrange for local cardiology follow-up
HPI: Patient was sent to ER last night from long-term care at [facility] for SOB and hypoxia and is now admitted with acute HF and cardiology has been consulted. The patient has dementia, but can recall that she lives long-term at [facility] that
her symptoms started suddenly last night. I then called her daughter/MERCEDES Travis, who is also an RN and she told me the patient has had increased LE edema for the last month that has been treated with intermittent doses of Lasix at [facility] without
improvement. The patient has had increasing JAMES, but no symptoms of orthopnea until last night. The patient does not have a known history of CHF and was not chronically on a diuretic when she moved to [facility]. Patient previously followed with
Dr. Meehan, who is now retired, and had last seen him 01/18/2024 but at that time was not taking a diuretic. Patient had in her office note that she had a history of hypertrophic cardiomyopathy, but no previous echo that I can find has any
evidence of an outflow tract obstruction or significant gradient. Patient also with history of paroxysmal A-fib but appears more persistent lately. Her last device check was when she was admitted here in May with delirium in the setting of UTI.
Progress Note - Hydroelectric Plant Operator
Subjective
Date of Service: October 26, 2024
She wants to go home, she thinks she is well enough to leave
Objective
Labs:
10/26/24 05:55
10/26/24 05:55
Labs
Hgb 12.2 g/dL (12.0-16.0) 10/26/24 05:55
Hct 36.7 % (37.0-47.0) L 10/26/24 05:55
Plt Count 233 10^3/uL (130-400) 10/26/24 05:55
Sodium 135 mmol/L (135-145) 10/26/24 05:55
Potassium 3.9 mmol/L (3.5-5.1) 10/26/24 05:55
BUN 16 mg/dl (7-17) 10/26/24 05:55
Creatinine 0.7 mg/dL (0.6-1.0) 10/26/24 05:55
Glucose 89 mg/dl (70-99) 10/26/24 05:55
Troponins
10/24/24 10/25/24 10/25/24
21:39 03:13 08:47
Troponin I 0.019 0.015 0.013
10/25/24
14:34
Troponin I Cancelled
Vital Signs and I&O:
Vital Signs
Temp Pulse Resp BP Pulse Ox
98.3 F 104 20 134/81 97
10/26/24 07:25 10/26/24 07:25 10/26/24 07:25 10/26/24 09:40 10/26/24 07:25
Vital Signs
Temp Pulse Resp BP Pulse Ox
98.3 F 104 20 134/81 97
10/26/24 07:25 10/26/24 07:25 10/26/24 07:25 10/26/24 09:40 10/26/24 07:25
Intake & Output
10/24/24 10/25/24 10/26/24 10/27/24
06:59 06:59 06:59 06:59
Intake Total 360 / 360
Output Total 1600 / 1600 1750 / 1750
Balance -1600 / -1600 -1390 / -1390
Physical Exam
Physical Exam
GEN: NAD. Awake and alert, knows she is in a hospital, but not the name
HEENT: EOMI, MMM
LUNGS: 2 L NC. Clear anterolaterally, no wheeze
CV: Afib on tele. Irreg irreg
ABD: ND
EXT: +1-2 B/L LE edema. No clubbing, cyanosis or lesions
NEURO: Gross non-focal
SKIN: Warm, dry and pink. No rash
[2024-10-26 11:14] VITALS: BP 114/69
--- NOTE | 2024-10-26 11:49 | W.PN.HOSP.TC ---
Addendum entered and electronically signed by Idalia Villarreal MD 10/26/24 13:33:
Selected Entries
10/24/24
21:36 10/26/24
09:12
Actual Weight 68.3 kg 61.83 kg
I saw and evaluated the patient independently. I reviewed the resident�s note and agree with findings and plan as documented by Dr. Kevin.
GENERAL: well developed, well nourished, female in no apparent distress
HEENT:NC/AT O2 requirements--NC
HEART: irreg irreg, +S1, +S2
LUNGS : crackles at bilateral bases
ABDOM: soft, nontender, nondistended, + bowel sounds
EXT: no cyanosis, clubbing-- 1+ LE edema
NEUROLOGIC: grossly intact
Acute hypoxemic respiratory failure secondary to acute on chronic HFpEF (no prior diagnosis) or hypertrophic cardiomyopathy--had NIPPV, BiPAP, and now on NC O2, wean as tolerated, keep pulse ox > 90%--much improved--apprec cards--cont
diuresis--proBNP 4160 on presentation--daily weights, I/Os--ECHO with global hypokinesis and EF 35-40%--SGLT2 not indicated at this time as per cardiology
Persistent A-fib--as per cardiology note--cont amiodarone, metoprolol, Eliquis
Hyperlipidemia--Continue atorvastatin 10 mg
DVT proph--Eliquis
code status--DNR
Original Note:
Today's Communication/Plan
-
Continue treatment with Lasix therapy, continue try to wean off of supplemental oxygen to room air. Continue monitoring heart rhythm
Assessment / Plan
Assessment / Plan
Assessment:
81-year-old female with past medical history significant for A-fib, hypertrophic cardiomyopathy and sick sinus syndrome status post PPM who presented to the [facility] emergency department complaining of shortness of breath from her facility
at [facility]. She has noticed significant swelling in her bilateral lower extremities for the past 2 weeks or so without any pain. She also has had no reported chest pain or palpitations, but reports shortness of breath with activity and exertion.
Last night she was lying down and elevating her legs as she was instructed to however became markedly short of breath. She was found to be very hypoxic with around 60% oxygen level. Due to her persistent hypoxia, patient was sent over to the
[place] ED for further evaluation and treatment. In the ED she had a chest x-ray done which showed marked pulmonary edema. She was initially very hypoxic and was placed on NIPPV in the ED. Patient was also started on IV diuretics with Lasix.
Patient continued to do much better with treatment and shortness of breath improved much throughout her stay. She was eventually transitioned down to BiPAP and then down to mid flow. She is currently on 3 L of mid flow upon examination.
Cardiology was consulted due to her persistent A-fib, and further management of diuretics due to her recent onset of CHF. As per cardiology, patient has history of hypertrophic cardiomyopathy and has been treated intermittently with Lasix at [facility]. She also used to follow Dr. Meehan for cardiology but he has now since retired. Patient to continue IV Lasix therapy, and supplemental oxygen as needed.
Chest X-Ray (10/24/2024)-
Lungs: Severe bilateral interstitial and airspace opacities worst in the right lower lung zone. No significant pleural effusions. No visualized pneumothorax.
IMPRESSION:
Severe multifocal pneumonia worst in the right base.
EKG (10/25/2024)-
ATRIAL FIBRILLATION
LEFT AXIS DEVIATION
LEFT VENTRICULAR HYPERTROPHY WITH QRS WIDENING AND REPOLARIZATION ABNORMALITY
( R in aVL , Galen product , [employer] )
CANNOT RULE OUT SEPTAL INFARCT (CITED ON OR BEFORE 07-DEC-2018)
ABNORMAL ECG
WHEN COMPARED WITH ECG OF 24-OCT-2024 21:37,
NO SIGNIFICANT CHANGE WAS FOUND
Echocardiogram (10/25/2024):
Normal left ventricular size. Global hypokinesis. Moderately reduced left
ventricular systolic function. LV ejection fraction is 35-40% by visual
estimate. Moderate concentric left ventricular hypertrophy. Diastolic function
indeterminate due to atrial fibrillation.
Normal right ventricular size and function.
Mild to moderate mitral regurgitation.
Aortic sclerosis without stenosis. Mild to moderate aortic regurgitation.
Moderate to severe tricuspid regurgitation. Estimated pulmonary artery pressure
of 35-40 mmHg assuming a right atrial pressure of 3 mmHg.
Compared to prior study dated 05/30/2024, left ventricular systolic function
has declined, ejection fraction previously estimated 60 to 65%.
Plan:
# Acute hypoxemic respiratory failure secondary to acute on chronic HFpEF (no prior diagnosis) or hypertrophic cardiomyopathy
-Patient remained on NIPPV in the ED, downgraded to BiPAP then further weaned off to mid flow. Currently on 3 L oxygen supplementation
-Patient downgraded from IMU to telemetry as she has been doing well
-proBNP 4160 on presentation
-Cardiology consulted, cardiology input appreciated
-Continue IV Lasix with 20 mg twice daily, possibly up to 40 mg
-Continue monitoring weights, has already lost 5 kg since treatment started in the ED
-Echo results show reduced left ventricular systolic function, EF 35 to 40%
-Continue weaning off of supplemental oxygen, currently on 2 L mid flow
-Chest x-ray as above, findings most likely correlate with pulmonary edema rather than pneumonia
-Procalcitonin negative, will continue to stay off of antibiotics, no fever, mild leukocytosis
-Follow I/Os, daily weights
-SGLT2 not indicated at this time as per cardiology
# Paroxysmal A-fib
-Persistent as seen on EKG again
-Patient to continue on amiodarone 200 mg daily
-Continue metoprolol
-Continue with correct dose of Eliquis at 5 mg twice daily, will need to switch to 2.5 mg if weight is less than or equal to 60 kg or creatinine increases to 1.5 or greater
-As per cardiology, patient was arranged with [employer] PPM device check
-Consider cardioversion in the future as outpatient if continues to be in A-fib
# Hyperlipidemia
-Continue atorvastatin 10 mg
DVT prophylaxis: Eliquis
CODE STATUS: DNR
Anticipated Discharge: 24 - 48 hours
Subjective/Interval History
-
Date of Service: October 26, 2024
Patient feeling well, had no acute complaints overnight. Reports that her breathing is much improved from before. Currently on 2 L of oxygen
Objective Data
-
Labs:
Laboratory Results
10/26/24
05:55
WBC 9.7
Hgb 12.2
Hct 36.7 L
Plt Count 233
Sodium 135
Potassium 3.9
Chloride 98
Carbon Dioxide 34 H
BUN 16
Creatinine 0.7
Glucose 89
Calcium 8.9
Vital Signs:
Vital Signs
Temp Pulse Resp BP Pulse Ox
98.0 F 96 16 114/69 92
10/26/24 11:14 10/26/24 11:14 10/26/24 11:14 10/26/24 11:14 10/26/24 11:14
I&O
10/25/24 10/26/24 10/27/24
06:59 06:59 06:59
Intake Total 360 / 360
Output Total 1600 / 1600 1750 / 1750
Balance -1600 / -1600 -1390 / -1390
Review of Systems
-
History Source: Patient
Constitutional: Denies Fever, Fatigue or Chills
EENT: Reports No Symptoms Reported
Respiratory: Denies Cough, Trouble Breathing or Wheezing
Cardiac: Denies Chest Pain, Palpitations, Syncope or Orthopnea
Abdomen/GI: Denies Abdominal Pain, Nausea or Vomiting
Genitourinary: Reports No Symptoms
Musculoskeletal: Reports No Symptoms
Neuro: Denies Headache, Weakness or Lightheadedness
Endocrine: Reports No Symptoms
Physical Exam
-
General: Well Developed, Well Nourished, No Apparent Distress, Comfortable, Conversant and Appears Chronically Ill
HEENT: Normocephalic, Atraumatic and Oxygen (2L mid flow)
Respiratory: Crackles (Right lower lung base crackles) and Non Labored Respirations
Cardiac: S1/S2 and Irregular Rhythm
GI: Soft, Nontender and Nondistended
Musculoskeletal: No Clubbing, No Cyanosis and No Edema
Skin: Warm
Neuro: Awake, Alert, Oriented and AO x 3
Psych: Calm
Data Reviewed
-
Labs: Labs Reviewed by me, Discussed with Physician, Discussed with Nurse and Discussed with Patient
--- NOTE | 2024-10-26 11:50 | W.CARD.DEVCH ---
Cardiac Device Check
-
Device: Pacemaker
Sole Polisher: Medtronic
The patient's device was interrogated with assistance of the device sales development representative followed by a complete physician review. The device had normal function. No abnormalities seen.
A-fib burden 67%, persistent A-fib for the last 47 days,
[2024-10-26] MEDS: ZESTRIL 2.5 MG PO (12:33)
[2024-10-26 15:31] VITALS: BP 104/71
--- NOTE | 2024-10-26 16:30 | W.PN.UPDATE ---
Update Note
Progress Note Update
Called and talked with patient's daughter, Angy, for 8 minutes and 26 seconds. We reviewed the echo and confirmed that the patient would not want ischemic evaluation or any invasive measures. Patient's daughter is agreeable to medical therapy
including the additions of lisinopril and Lasix. Patient's daughter is also agreeable to outpatient cardiology follow-up, will arrange.
--- NOTE | 2024-10-26 16:35 | CM ---
Requested PT OT evals orders from .
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
Oxygen at 2 liters POX 92%.
PLAN To return to [employer] termination clerk
[2024-10-26] MEDS: LIPITOR 10 MG PO (19:53)
[2024-10-26 20:18] VITALS: BP 119/68
[2024-10-26 23:15] VITALS: BP 112/71
[2024-10-27 04:28] VITALS: BP 126/71; BMI 26.2
[2024-10-27 06:42] LABS: Hemoglobin 11.9 g/dL (12.0-16.0); Mean Corpuscular Hgb 30.9 pg (27.0-31.0); Mean Corpuscular Volume 90.9 fL (81.0-99.0); Mean Platelet Volume 10.1 fL (7.4-10.4); Platelet Count 248 10^3/uL (130-400); Red Blood Cell Count 3.85 10^6/uL (4.20-5.40); Red Cell Dist. Width 14.5 % (11.5-14.5); White Blood Cell Count 9.8 10^3/uL (4.8-10.8)
[2024-10-27 07:03] LABS: Blood Urea Nitrogen 20 mg/dl (7-17); Carbon Dioxide 35 mmol/L (22-30); Chloride 99 mmol/L (98-107); Estimated Creatinine Clearance 40 ml/min; Glucose 95 mg/dl (70-99); Potassium 4.2 mmol/L (3.5-5.1); Sodium 135 mmol/L (135-145); eGFR > 60.00
[2024-10-27 07:10] VITALS: BP 130/82
[2024-10-27] MEDS: LASIX 20 MG IV ×2 (08:25→14:50)
[2024-10-27] MEDS: KLOR-CON 20 MEQ PO (08:26)
[2024-10-27] MEDS: ELIQUIS 5 MG PO (08:26)
[2024-10-27] MEDS: FLUSH (NSS) 2 FLUSH IV (08:26)
[2024-10-27] MEDS: TOPROL XL 50 MG PO (08:27)
[2024-10-27] MEDS: ZESTRIL 2.5 MG PO (08:27)
[2024-10-27] MEDS: PACERONE 200 MG PO (08:27)
--- NOTE | 2024-10-27 08:45 | W.PN.HOSP.TC ---
Addendum entered and electronically signed by Idalia Villarreal MD 10/27/24 12:49:
I saw and evaluated the patient independently. I reviewed the resident�s note and agree with findings and plan as documented by Dr. Kevin.
GENERAL: well developed, well nourished, female in no apparent distress
HEENT:NC/AT --off O2
HEART: irreg irreg, +S1, +S2
LUNGS : crackles at bilateral bases
ABDOM: soft, nontender, nondistended, + bowel sounds
EXT: no cyanosis, clubbing-- 1+ LE edema
NEUROLOGIC: grossly intact
Acute hypoxemic respiratory failure secondary to acute on chronic HFpEF (no prior diagnosis) or hypertrophic cardiomyopathy--had NIPPV, BiPAP, and now on NC O2, wean as tolerated, keep pulse ox > 90%--much improved--apprec cards--cont
diuresis--proBNP 4160 on presentation--daily weights, I/Os--ECHO with global hypokinesis and EF 35-40%--SGLT2 not indicated at this time as per cardiology
Persistent A-fib--as per cardiology note--cont amiodarone, metoprolol, Eliquis
Hyperlipidemia--Continue atorvastatin 10 mg
DVT proph--Eliquis
code status--DNR
ok for d/c
Original Note:
Today's Communication/Plan
-
Patient has been doing well, possible discharge today
Assessment / Plan
Assessment / Plan
Assessment:
81-year-old female with past medical history significant for A-fib, hypertrophic cardiomyopathy and sick sinus syndrome status post PPM who presented to the [facility] emergency department complaining of shortness of breath from her facility
at [facility]. She has noticed significant swelling in her bilateral lower extremities for the past 2 weeks or so without any pain. She also has had no reported chest pain or palpitations, but reports shortness of breath with activity and exertion.
Last night she was lying down and elevating her legs as she was instructed to however became markedly short of breath. She was found to be very hypoxic with around 60% oxygen level. Due to her persistent hypoxia, patient was sent over to the
[place] ED for further evaluation and treatment. In the ED she had a chest x-ray done which showed marked pulmonary edema. She was initially very hypoxic and was placed on NIPPV in the ED. Patient was also started on IV diuretics with Lasix.
Patient continued to do much better with treatment and shortness of breath improved much throughout her stay. She was eventually transitioned down to BiPAP and then down to mid flow. She is currently on 3 L of mid flow upon examination.
Cardiology was consulted due to her persistent A-fib, and further management of diuretics due to her recent onset of CHF. As per cardiology, patient has history of hypertrophic cardiomyopathy and has been treated intermittently with [facility]ix at [facility]. She also used to follow Dr. Meehan for cardiology but he has now since retired. Patient to continue IV Lasix therapy, and supplemental oxygen as needed.
Chest X-Ray (10/24/2024)-
Lungs: Severe bilateral interstitial and airspace opacities worst in the right lower lung zone. No significant pleural effusions. No visualized pneumothorax.
IMPRESSION:
Severe multifocal pneumonia worst in the right base.
EKG (10/25/2024)-
ATRIAL FIBRILLATION
LEFT AXIS DEVIATION
LEFT VENTRICULAR HYPERTROPHY WITH QRS WIDENING AND REPOLARIZATION ABNORMALITY
( R in aVL , [employer] product , [employer] )
CANNOT RULE OUT SEPTAL INFARCT (CITED ON OR BEFORE 07-DEC-2018)
ABNORMAL ECG
WHEN COMPARED WITH ECG OF 24-OCT-2024 21:37,
NO SIGNIFICANT CHANGE WAS FOUND
Echocardiogram (10/25/2024):
Normal left ventricular size. Global hypokinesis. Moderately reduced left
ventricular systolic function. LV ejection fraction is 35-40% by visual
estimate. Moderate concentric left ventricular hypertrophy. Diastolic function
indeterminate due to atrial fibrillation.
Normal right ventricular size and function.
Mild to moderate mitral regurgitation.
Aortic sclerosis without stenosis. Mild to moderate aortic regurgitation.
Moderate to severe tricuspid regurgitation. Estimated pulmonary artery pressure
of 35-40 mmHg assuming a right atrial pressure of 3 mmHg.
Compared to prior study dated 05/30/2024, left ventricular systolic function
has declined, ejection fraction previously estimated 60 to 65%.
Plan:
# Acute hypoxemic respiratory failure secondary to acute on chronic HFpEF (no prior diagnosis) or hypertrophic cardiomyopathy
-Patient remained on NIPPV in the ED, downgraded to BiPAP then further weaned off to mid flow. Currently on 3 L oxygen supplementation
-Patient downgraded from IMU to telemetry as she has been doing well
-proBNP 4160 on presentation
-Cardiology consulted, cardiology input appreciated
-Continue IV Lasix with 20 mg twice daily, possibly up to 40 mg
-Continue monitoring weights, has already lost 5 kg since treatment started in the ED
-Echo results show reduced left ventricular systolic function, EF 35 to 40%
-Continue weaning off of supplemental oxygen, currently on 2 L mid flow
-Chest x-ray as above, findings most likely correlate with pulmonary edema rather than pneumonia
-Procalcitonin negative, will continue to stay off of antibiotics, no fever, mild leukocytosis
-Follow I/Os, daily weights
-SGLT2 not indicated at this time as per cardiology
# Paroxysmal A-fib
-Persistent as seen on EKG again
-Patient to continue on amiodarone 200 mg daily
-Continue metoprolol 50mg daily
-Continue with correct dose of Eliquis at 5 mg twice daily, will need to switch to 2.5 mg if weight is less than or equal to 60 kg or creatinine increases to 1.5 or greater
-As per cardiology, patient was arranged with [employer] PPM device check
-Consider cardioversion in the future as outpatient if continues to be in A-fib
-Patient was started on lisinopril 2.5 mg daily
-Patient continues to improve and may be safe for discharge today
# Hyperlipidemia
-Continue atorvastatin 10 mg
DVT prophylaxis: Eliquis
CODE STATUS: DNR
Anticipated Discharge: Within 24 hours
Subjective/Interval History
-
Date of Service: October 27, 2024
Patient has been feeling well today, has no acute complaints. Still on 2 L of oxygen
Objective Data
-
Labs:
Laboratory Results
10/27/24
06:18
WBC 9.8
Hgb 11.9 L
Hct 35.0 L
Plt Count 248
Sodium 135
Potassium 4.2
Chloride 99
Carbon Dioxide 35 H
BUN 20 H
Creatinine 0.8
Glucose 95
Calcium 9.0
Vital Signs:
Vital Signs
Temp Pulse Resp BP Pulse Ox
98.1 F 109 18 130/82 95
10/27/24 07:10 10/27/24 07:10 10/27/24 07:10 10/27/24 08:27 10/27/24 07:10
I&O
10/26/24 10/27/24 10/28/24
06:59 06:59 06:59
Intake Total 360 / 360 600 / 600
Output Total 1750 / 1750 1200 / 1200
Balance -1390 / -1390 -600 / -600
Review of Systems
-
History Source: Patient
Constitutional: Denies Fever, Fatigue or Chills
EENT: Reports No Symptoms Reported
Respiratory: Denies Cough, Trouble Breathing or Wheezing
Cardiac: Denies Chest Pain, Palpitations, Syncope or Orthopnea
Abdomen/GI: Denies Abdominal Pain, Nausea or Vomiting
Genitourinary: Reports No Symptoms
Musculoskeletal: Reports No Symptoms
Neuro: Denies Headache, Weakness or Lightheadedness
Endocrine: Reports No Symptoms
Physical Exam
-
General: Well Developed, Well Nourished, No Apparent Distress, Comfortable and Conversant
HEENT: Normocephalic, Atraumatic and Oxygen (2L mid flow)
Respiratory: Crackles (Right lower lung base crackles) and Non Labored Respirations
Cardiac: S1/S2 and Irregular Rhythm
GI: Soft, Nontender and Nondistended
Musculoskeletal: No Clubbing, No Cyanosis and No Edema
Skin: Warm
Neuro: Awake, Alert, Oriented and AO x 3
Psych: Calm
Data Reviewed
-
Labs: Labs Reviewed by me, Discussed with Physician, Discussed with Nurse and Discussed with Patient
[2024-10-27 09:01] VITALS: BP 139/86; PULSE 105; O2SAT 95
[2024-10-27 09:07] VITALS: BP 139/86; PULSE 92; O2SAT 96
--- NOTE | 2024-10-27 10:02 | W.PN.CARDCBS ---
Addendum entered and electronically signed by Heber Llamas MD 10/27/24 12:45:
I saw and examined the patient.
The Water Leak Repairer's note was reviewed and I agree with the note.
Comment: Briefly, 89-year-old woman past medical history of atrial fibrillation, permanent pacemaker, possible hypertrophic cardiomyopathy and now presenting with acute decompensated heart failure with reduced ejection fraction.
#HFrEF:
With IV Lasix volume status is improved and appears euvolemic on exam
Plan to transition to PO diuretics this afternoon
Cont BB and low dose HORTENCIA inhibitor
BP is unlikely to tolerate additional medical therapy at this time
#AFRVR
HR elevated at times in AFib
Increase metoprolol dose for HR goal <110bpm
Eliquis for stroke ppx
We will sign off, please recall as needed
Outpatient follow up arranged
Original Note:
Today's Communication / Plan
-
Will transition to PO lasix 60mg daily w/ additional dose of IV lasix this afternoon
Increase Toprol to 75mg daily for better rate control in afib
Will discharge on Eliquis 2.5mg BID
BMP in 1 week.
Follow up arranged w/ cardiology locally.
Impression / Plan
-
PCP: Dr. Emmett Hernandez
Primary Customer Contact Sales Associate: previously Dr. Meehan, transitioning to Dr. Kaur
Impression:
Admitted with SOB and hypoxia 10/24/24
Acute hypoxic respiratory failure
Acute on chronic HFrEF
Newly diagnosed CM EF 35 to 40% by echo 10/25/2024
Persistent A-fib, 67% burden on device check 10/25/24
Chronic amiodarone therapy
Chronic Eliquis OAC
s/p [employer] DC PPM for tachy-radha 2018
Possible h/o hypertrophic cardiomyopathy
HLD
AI
Dementia
DNR code status
ECHO 01/2019: EF 55 to 60%, normal RV and LV function, mild AI, mild MR, mild TR
ECHO 05/30/2024: EF 60 to 65%, stage II diastolic dysfunction, mild to moderate MR, mild to moderate AR, moderate to severe TR, PAP 36 mmHg, mildly dilated RA
Echo 10/25/2024: EF 35 to 40%, moderate concentric LVH, normal RV size and function, mild to moderate MR, mild to moderate aortic regurgitation, moderate to severe TR with PAP 35 to 40 mmHg
Plan:
-Presented with SOB and hypoxia. Admitted with acute heart failure exacerbation.
-Diuresing with IV lasix 20mg BID with additional 20mg of IV lasix given on 10/26. Was not on standing dose of lasix prior to arrival.
-Weight down another 2 lbs overnight, down to 134 lbs on 10/27. Prior dry weight noted to be 131 lbs.
-Still has some LE edema, but notes improvement in her breathing with no complaints. On RA.
-Would transition to PO lasix 60mg daily in AM as she is being discharged to [facility] and may have higher sodium meals.
-Creat remains stable at 0.8. Check BMP in 1 week as OP.
-EF newly reduced to 35 to 40% by echo 10/25. Discussed with daughter over the phone 10/25 and plan is for medical therapy alone.
-Outpatient dose of Toprol XL 50 mg daily has been continued. HRs intermittently elevated in Afib, will increase Toprol to 75mg daily.
-BP stable, continue lisinopril 2.5 mg daily, new this admission.
-Continue uptitration of medical therapy as OP as BP allows. Avoiding SGLT2 inhibitors due to h/o UTI resulting in delirium 05/2024 and increased risk of significant infection in a patient with h/o dementia.
-Remains in persistent atrial fibrillation on tele and by device check. Increasing Toprol as above.
-She is borderline for dosage of Eliquis given age 89 with weight of 60.8 kg. Had been on 2.5mg BID as OP previously, but w/ increased volume/weight during admission was on higher dose 5mg BID. Weight down to 60.8 kg 10/27. Will place back down on
lower dose of 2.5mg BID. Follow closely as OP.
-Cardiology follow up arranged.
HPI: Patient was sent to ER last night from long-term care at [facility] for SOB and hypoxia and is now admitted with acute HF and cardiology has been consulted. The patient has dementia, but can recall that she lives long-term at [facility] that
her symptoms started suddenly last night. I then called her daughter/MERCEDES Travis, who is also an RN and she told me the patient has had increased LE edema for the last month that has been treated with intermittent doses of Lasix at [facility] without
improvement. The patient has had increasing JAMES, but no symptoms of orthopnea until last night. The patient does not have a known history of CHF and was not chronically on a diuretic when she moved to [facility]. Patient previously followed with
Dr. Meehan, who is now retired, and had last seen him 01/18/2024 but at that time was not taking a diuretic. Patient had in her office note that she had a history of hypertrophic cardiomyopathy, but no previous echo that I can find has any
evidence of an outflow tract obstruction or significant gradient. Patient also with history of paroxysmal A-fib but appears more persistent lately. Her last device check was when she was admitted here in May with delirium in the setting of UTI.
Progress Note - Customer Contact Sales Associate
Subjective
Date of Service: October 27, 2024
Feeling well. No SOB. Edema improving.
Objective
Labs:
10/27/24 06:18
10/27/24 06:18
Labs
Hgb 11.9 g/dL (12.0-16.0) L 10/27/24 06:18
Hct 35.0 % (37.0-47.0) L 10/27/24 06:18
Plt Count 248 10^3/uL (130-400) 10/27/24 06:18
Sodium 135 mmol/L (135-145) 10/27/24 06:18
Potassium 4.2 mmol/L (3.5-5.1) 10/27/24 06:18
BUN 20 mg/dl (7-17) H 10/27/24 06:18
Creatinine 0.8 mg/dL (0.6-1.0) 10/27/24 06:18
Glucose 95 mg/dl (70-99) 10/27/24 06:18
Troponins
10/24/24 10/25/24 10/25/24
21:39 03:13 08:47
Troponin I 0.019 0.015 0.013
10/25/24
14:34
Troponin I Cancelled
Vital Signs and I&O:
Vital Signs
Temp Pulse Resp BP Pulse Ox
98.1 F 109 18 130/82 95
10/27/24 07:10 10/27/24 07:10 10/27/24 07:10 10/27/24 08:27 10/27/24 07:10
Vital Signs
Temp Pulse Resp BP Pulse Ox
98.1 F 109 18 130/82 95
10/27/24 07:10 10/27/24 07:10 10/27/24 07:10 10/27/24 08:27 10/27/24 07:10
Intake & Output
10/25/24 10/26/24 10/27/24 10/28/24
06:59 06:59 06:59 06:59
Intake Total 360 / 360 600 / 600 180 / 180
Output Total 1600 / 1600 1750 / 1750 1200 / 1200
Balance -1600 / -1600 -1390 / -1390 -600 / -600 180 / 180
Physical Exam
Physical Exam
GEN: NAD. Awake and alert, sitting up in chair.
HEENT: EOMI, MMM
LUNGS: CTA b/l, no wheezes
CV: Irreg irreg, no murmur
ABD: ND
EXT: +1 b/l LE edema. No clubbing, cyanosis or lesions
NEURO: Gross non-focal
SKIN: Warm, dry and pink. No rash
[2024-10-27 11:55] VITALS: BP 98/63
--- NOTE | 2024-10-27 14:08 | W.DCSUMMARY ---
Addendum entered and electronically signed by Haris Evans MD, Resident 10/31/24 18:31:
Correction: Age is 89 year old, not 81
Addendum entered and electronically signed by Idalia Villarreal MD 10/27/24 14:24:
Read, reviewed, and agree. See same day progress note for additional details. Time spent coordinating care, DC planning, review of DC plan of care with resident, transition of care, review of records in EMR, med rec, consults, notes, d/w
consultants, nursing, family, and CM = 33 minutes
Original Note:
Discharge Summary
Discharge Data
Date of Admission: 10/24/24
Date of Discharge: 10/27/24
-
Pending Results: No
Hospital Course
CC to: Dr. Ho Olson (Primary Care Provider)
Discharging Physician : Dr. Haris Evans, Dr. Idalia Villarreal
�
Disposition�:�SNF ([facility])
�
Primary�care�physician�: Dr. Ho Olson
�
Principal�Discharge�Diagnosis�:�
Acute hypoxemic respiratory failure secondary to acute on chronic HFpEF (no prior diagnosis) or hypertrophic cardiomyopathy
Chronic�Discharge�Diagnosis:�
Persistent A-fib
Hyperlipidemia
�
Hospital�Course�:��
81-year-old female with a past medical history significant for A-fib, hypertrophic cardiomyopathy and sick sinus syndrome status post PPM presented to the [facility] emergency department complaining of shortness of breath from her facility
at [facility] on 10/24/2024. She had noticed significant swelling in her bilateral lower extremities for the past 2 weeks or so without any pain. She also had no reported chest pain or palpitations, but reported shortness of breath with activity and
exertion. The night before, she was lying down and elevating her legs as she was instructed to however became markedly short of breath. She was found to be very hypoxic with around 60% oxygen saturation levels. Due to her persistent hypoxia,
patient was sent over to the [place] ED for further evaluation and treatment. In the ED she had a chest x-ray done which showed marked pulmonary edema. She was initially very hypoxic and was placed on NIPPV in the ED. Patient was also started
on IV diuretics with Lasix. Patient continued to do much better with treatment and shortness of breath improved much throughout her stay. She was eventually transitioned down to BiPAP and then down to mid flow. She is currently weaned off to room
air. Cardiology was consulted due to her persistent A-fib, and further management of diuretics due to her new diagnosis of CHF. As per cardiology, patient has history of hypertrophic cardiomyopathy and has been treated intermittently with Lasix at
[facility]. She also used to follow Dr. Meehan for cardiology but he has now since retired. Patient was set up with a new [employer] [facility], Dr. Kaur, and will have a follow up appointment with her on discharge. Patient's medications were changed and
she was put on 60mg Lasix daily, 75mg Metoprolol daily and 2.5mg of Eliquis twice daily for her A-Fib, and 2.5mg Lisinopril daily for her blood pressure. Patient was medically cleared for discharge back to [facility] with instructions to follow up
with Cardiology as directed.
�
Important�imaging�findings�:��
Chest X-Ray (10/24/2024)-
Lungs: Severe bilateral interstitial and airspace opacities worst in the right lower lung zone. No significant pleural effusions. No visualized pneumothorax.
IMPRESSION:
Severe multifocal pneumonia worst in the right base.
EKG (10/25/2024)-
ATRIAL FIBRILLATION
LEFT AXIS DEVIATION
LEFT VENTRICULAR HYPERTROPHY WITH QRS WIDENING AND REPOLARIZATION ABNORMALITY
( R in aVL , [employer] product , [employer] )
CANNOT RULE OUT SEPTAL INFARCT (CITED ON OR BEFORE 07-DEC-2018)
ABNORMAL ECG
WHEN COMPARED WITH ECG OF 24-OCT-2024 21:37,
NO SIGNIFICANT CHANGE WAS FOUND
Echocardiogram (10/25/2024):
Normal left ventricular size. Global hypokinesis. Moderately reduced left
ventricular systolic function. LV ejection fraction is 35-40% by visual
estimate. Moderate concentric left ventricular hypertrophy. Diastolic function
indeterminate due to atrial fibrillation.
Normal right ventricular size and function.
Mild to moderate mitral regurgitation.
Aortic sclerosis without stenosis. Mild to moderate aortic regurgitation.
Moderate to severe tricuspid regurgitation. Estimated pulmonary artery pressure
of 35-40 mmHg assuming a right atrial pressure of 3 mmHg.
Compared to prior study dated 05/30/2024, left ventricular systolic function
has declined, ejection fraction previously estimated 60 to 65%.�
Procedure�findings�:��None
�
Discharge Plan
-
Patient Disposition: Group Home/SNF
Discharge Diagnosis/Procedures: Acute hypoxemic respiratory failure secondary to acute on chronic HFpEF (no prior diagnosis) or hypertrophic cardiomyopathy
Persistent A-fib
Hyperlipidemia
Diet: 2 Gram Sodium and Restrict fluids to 64 oz
Activity: As tolerated
Driving Restrictions: As prior to admission
Bathing Restrictions: None
Specialty Instructions: Weigh Daily- Call MD for wt gain/loss 3 lbs overnight/5 lbs in 1 week
Instructions: *PCP/Other [facility] Heart Failure Instructions
Referrals:
Emmett Hernandez MD [Family Provider] -
Kathy Knapp CRNP [Specified Professional Personl] - 11/13/24 10:40 am (You have a follow up visit with Dr. Kaur's SALES REPRESENTATIVE CONSULTANT, Kathy Knapp, at the [facility] office. Please call with questions. )
Additional Discharge Medication Instructions: Follow-up with PCP within 1 week
Follow-up with cardiology as scheduled
Continue Lasix 60 mg daily
Continue metoprolol 75 mg daily
Continue Eliquis 2.5 mg twice a day
Continue lisinopril 2.5 mg daily
Prescriptions:
New
furosemide 20 mg Tablet
20 mg PO DAILY 30 Days Qty: 30 0RF
furosemide 40 mg Tablet
40 mg PO DAILY 30 Days Qty: 30 0RF
metoprolol succinate 50 mg Tablet Extended Release 24 Hr
50 mg PO DAILY 30 Days Qty: 30 0RF
metoprolol succinate 25 mg Tablet Extended Release 24 Hr
25 mg PO DAILY 30 Days Qty: 30 0RF
atorvastatin 10 mg Tablet
10 mg PO HS 30 Days Qty: 30 0RF
lisinopril 2.5 mg Tablet
2.5 mg PO DAILY 30 Days Qty: 30 0RF
Continued
alendronate 70 MG tablet
70 mg PO ADAME
Eliquis 2.5 mg Tablet
2.5 mg PO BID
acetaminophen 325 mg Tablet
650 mg PO Q4HPRN PRN (Reason: mild pain/BAH/temp> 100.4F) Qty: 60 0RF
amiodarone 200 mg Tablet
200 mg PO DAILY
magnesium hydroxide [Milk of Magnesia] 400 mg/5 mL Suspension
30 ml PO DAILYPRN PRN (Reason: constipation)
bisacodyl [Dulcolax (bisacodyl)] 10 mg Suppository
10 mg OH DAILYPRN PRN (Reason: mom ineffective)
Fleet Enema 19-7 gram/118 mL Enema
118 ml OH DAILYPRN PRN (Reason: dulcolax ineffective)
diclofenac sodium 1 % Gel
2 g TOPICAL TID
Discontinued
simvastatin 20 MG tablet
20 mg PO HS
metoprolol succinate 50 mg tablet extended release 24 hr
50 mg PO DAILY
Discharge Orders:
Discharge Patient (As Directed); Ordered 10/27/24
Ordered By: Haris Evans
Discharge Date and Time
Print Language: CENTRAL AFRICAN
[2024-10-27] MEDS: FLUSH (NSS) 1 FLUSH IV (14:50)
--- NOTE | 2024-10-27 15:08 | CM ---
entered order for discahrge.
PT eval =no skilled needs.
Rochelle at [facility] accepted back under intermediate frame tender care.
Spoke with dgt Angy [phone] IMM reviewed with her .
Dgt agreed with cover van cost acute care # given to dgt .
Transport form completed.
PLAN Return to [facility]
report [phone]
fax [phone]
[2024-10-27 15:48] VITALS: BP 97/53
--- NOTE | 2024-10-30 09:52 | W.HF.CON ---
Heart Failure
- LV Function
Left ventricular function study result: LV Ejection fraction 36-40%
Ejection Fraction Percentage: 35-40
- ARNI
Patient already on ARNI: No
Heart Failure ARNI Contraindication: Hypotension
- ACEI/ARB
Patient already on ACEI/ARB: Yes
- Beta Angelita
Patient already on Evidence Based Beta Angelita: Yes
- Mineralocorticord Receptor Antagonist
Patient already on MRA: No
Heart Failure MRA Contraindication: Hypotension
- SGLT-2 Inhibitor
Patient already on SGLT-2 Inhibitor: No
Heart Failure SGLT-2 Inhibitor Contraindication: Patient Refusal
- Afib Anticoagulation
Patient already on Anticoagulation for Afib: Yes
- NYHA CHF Classification
NYHA CHF Classification Level: Class III - Symptoms w/ min exertion, interferes w/ nml daily activity
- ACC/AHA Stage
ACC/AHA Stage: Stage C: Symptomatic Heart Failure
== END 2024-10-27 18:53 | DRG 291 ==
LOC: 4 EAST ACU 23:27
PROVIDERS: Internal Medicine Cardiovascular Disease; ADMITTING PHYSICIAN Hospitalist; ATTENDING PHYSICIAN Internal Medicine; EMERGENCY PHYSICIAN Emergency Medicine; FAMILY PHYSICIAN Family Medicine; OTHER PHYSICIAN Internal Medicine Cardiovascular Disease
PROC: 5A09357 Assistance with Respiratory Ventilation, Less than 24 Consecutive Hours, Continuous Positive Airway Pressure (ICD-10-PCS; 2024-10-24)
PROC: 4B02XSZ Measurement of Cardiac Pacemaker, External Approach (ICD-10-PCS; 2024-10-26)
DX: I50.33 Acute on chronic diastolic (congestive) heart failure (principal); J96.01 Acute respiratory failure with hypoxia; I48.21 Permanent atrial fibrillation; I42.2 Other hypertrophic cardiomyopathy; E78.00 Pure hypercholesterolemia, unspecified; I49.5 Sick sinus syndrome; F03.90 Unspecified dementia, unspecified severity, without behavioral disturbance, psychotic disturbance, mood disturbance, and anxiety; Z66 Do not resuscitate; Z79.01 Long term (current) use of anticoagulants; Z87.891 Personal history of nicotine dependence; Z11.52 Encounter for screening for COVID-19; Z79.899 Other long term (current) drug therapy
CPT/HCPCS: 71045; 80048; 83735; 83880; 84132; 84145; 84443; 84484; 85025; 85027; 87502; 87811; 93005; 93306; 94660; 96374; 97163; 97167; 99291

== ENCOUNTER → 2024-11-16 09:39 | Outpatient (REF) | payer OTHER, SELFPAY ==
[2024-11-16 11:11] LABS: Blood Urea Nitrogen 23 mg/dl (7-17); Calcium 8.8 mg/dl (8.4-10.2); Carbon Dioxide 31 mmol/L (22-30); Chloride 102 mmol/L (98-107); Glucose 94 mg/dl (70-99); Potassium 3.4 mmol/L (3.5-5.1); Sodium 140 mmol/L (135-145); eGFR > 60.00
[2024-11-16 11:26] LABS: NT-proBNP 1460 pg/ml
== END ==
LOC: OLABP 09:39
PROVIDERS: ATTENDING PHYSICIAN Family Medicine
DX: I10 Essential (primary) hypertension (principal); M81.0 Age-related osteoporosis without current pathological fracture; R29.6 Repeated falls; F03.90 Unspecified dementia, unspecified severity, without behavioral disturbance, psychotic disturbance, mood disturbance, and anxiety; I49.5 Sick sinus syndrome; Z95.0 Presence of cardiac pacemaker; I48.0 Paroxysmal atrial fibrillation; E78.5 Hyperlipidemia, unspecified; R26.2 Difficulty in walking, not elsewhere classified; M62.81 Muscle weakness (generalized); R06.09 Other forms of dyspnea
CPT/HCPCS: 36415; 80048; 83880

== ENCOUNTER → 2024-11-17 09:39 | Outpatient (REF) | payer OTHER, SELFPAY ==
[2024-11-17 11:46] LABS: Blood Urea Nitrogen 16 mg/dl (7-17); Calcium 9.1 mg/dl (8.4-10.2); Carbon Dioxide 31 mmol/L (22-30); Chloride 101 mmol/L (98-107); Glucose 91 mg/dl (70-99); Potassium 3.8 mmol/L (3.5-5.1); Sodium 138 mmol/L (135-145); eGFR > 60.00
[2024-11-17 12:19] LABS: NT-proBNP 1350 pg/ml
== END ==
LOC: OLABP 09:39
PROVIDERS: ATTENDING PHYSICIAN Family Medicine
DX: I49.5 Sick sinus syndrome (principal); Z95.0 Presence of cardiac pacemaker; I48.0 Paroxysmal atrial fibrillation; E78.5 Hyperlipidemia, unspecified; I10 Essential (primary) hypertension; M81.0 Age-related osteoporosis without current pathological fracture; R29.6 Repeated falls; F03.90 Unspecified dementia, unspecified severity, without behavioral disturbance, psychotic disturbance, mood disturbance, and anxiety; R26.2 Difficulty in walking, not elsewhere classified; M62.81 Muscle weakness (generalized); R06.09 Other forms of dyspnea
CPT/HCPCS: 36415; 80048; 83880

== ENCOUNTER → 2024-11-22 15:54 | Outpatient (REF) | payer OTHER, SELFPAY ==
[2024-11-22 16:07] LABS: % Basophils 0.8 % (0-2); % Immature Granulocytes 0.3 % (0-0.5); % Lymphocytes 23.9 % (20.5-51.1); % Monocytes 10.2 % (1.7-9.3); % Neutrophils 63.8 % (42.2-75.2); Absolute Basophils 0.1 10^3/uL (0-0.2); Absolute Eosinophils 0.1 10^3/uL (0-0.7); Absolute Lymphocytes 1.7 10^3/uL (1.2-3.4); Absolute Monocytes 0.7 10^3/uL (0.1-0.6); Absolute Neutrophils 4.5 10^3/uL (1.4-6.5); Hematocrit 42.1 % (37.0-47.0); Hemoglobin 14.1 g/dL (12.0-16.0); Mean Corp Hgb Conc. 33.5 g/dL (33.0-37.0); Mean Corpuscular Hgb 30.5 pg (27.0-31.0); Mean Corpuscular Volume 90.9 fL (81.0-99.0); Mean Platelet Volume 10.2 fL (7.4-10.4); Nucleated Red Blood Cells % 0 %; Platelet Count 234 10^3/uL (130-400); Red Blood Cell Count 4.63 10^6/uL (4.20-5.40); Red Cell Dist. Width 13.8 % (11.5-14.5); White Blood Cell Count 7.1 10^3/uL (4.8-10.8)
[2024-11-22 16:15] LABS: ALT (SGPT) 24 U/L (0-35); AST (SGOT) 30 U/L (14-36); Albumin 3.6 g/dl (3.5-5.0); Alkaline Phosphatase 82 U/L (38-126); Blood Urea Nitrogen 15 mg/dl (7-17); Calcium 9.3 mg/dl (8.4-10.2); Carbon Dioxide 28 mmol/L (22-30); Chloride 101 mmol/L (98-107); Glucose 90 mg/dl (70-99); Potassium 3.7 mmol/L (3.5-5.1); Sodium 137 mmol/L (135-145); Total Bilirubin 1.1 mg/dl (0.2-1.3); eGFR > 60.00
== END ==
LOC: OLABP 15:54
PROVIDERS: ATTENDING PHYSICIAN Family Medicine
DX: I49.5 Sick sinus syndrome (principal); Z95.0 Presence of cardiac pacemaker; I48.0 Paroxysmal atrial fibrillation; E78.00 Pure hypercholesterolemia, unspecified; R26.2 Difficulty in walking, not elsewhere classified; M81.0 Age-related osteoporosis without current pathological fracture; M62.81 Muscle weakness (generalized); R29.6 Repeated falls; F03.90 Unspecified dementia, unspecified severity, without behavioral disturbance, psychotic disturbance, mood disturbance, and anxiety; R06.09 Other forms of dyspnea
CPT/HCPCS: 80053; 85025

== ENCOUNTER → 2025-01-16 11:58 | Outpatient (REF) | payer OTHER, SELFPAY ==
[2025-01-16 13:01] LABS: Blood Urea Nitrogen 18 mg/dl (7-17); Calcium 8.7 mg/dl (8.4-10.2); Carbon Dioxide 30 mmol/L (22-30); Chloride 103 mmol/L (98-107); Glucose 86 mg/dl (70-99); HDL Cholesterol 39 mg/dl; LDL Cholesterol, Calculated 88 mg/dl; Potassium 3.9 mmol/L (3.5-5.1); Sodium 135 mmol/L (135-145); Total Cholesterol 138 mg/dl (50-199); Triglyceride 58 mg/dl (10-149); Very Low Density Lipoprotein 11 mg/dl (0-30); eGFR > 60.00
== END ==
LOC: OLABP 11:58
PROVIDERS: ATTENDING PHYSICIAN Family Medicine
DX: I49.5 Sick sinus syndrome (principal); Z95.0 Presence of cardiac pacemaker; I48.0 Paroxysmal atrial fibrillation; E78.5 Hyperlipidemia, unspecified; I10 Essential (primary) hypertension; M81.0 Age-related osteoporosis without current pathological fracture; R29.6 Repeated falls; F03.90 Unspecified dementia, unspecified severity, without behavioral disturbance, psychotic disturbance, mood disturbance, and anxiety; R26.2 Difficulty in walking, not elsewhere classified; M62.81 Muscle weakness (generalized); R06.09 Other forms of dyspnea
CPT/HCPCS: 36415; 80048; 80061

== ENCOUNTER → 2025-03-21 14:42 | Outpatient (REF) | payer OTHER, SELFPAY | LOC: RCS 14:42 | PROVIDERS: ATTENDING PHYSICIAN Internal Medicine Interventional Cardiology | DX: I48.0 Paroxysmal atrial fibrillation (principal); I36.1 Nonrheumatic tricuspid (valve) insufficiency; I42.8 Other cardiomyopathies | CPT/HCPCS: 93308; 93321; 93325 ==

== ENCOUNTER → 2025-07-12 09:38 | Outpatient (REF) | payer OTHER, SELFPAY ==
[2025-07-12 11:22] LABS: Hematocrit 40.1 % (37.0-47.0); Hemoglobin 12.9 g/dL (12.0-16.0); Mean Corp Hgb Conc. 32.2 g/dL (33.0-37.0); Mean Corpuscular Volume 94.6 fL (81.0-99.0); Nucleated Red Blood Cells % 0 %; Platelet Count 268 10^3/uL (130-400); Red Cell Dist. Width 14.0 % (11.5-14.5)
[2025-07-12 11:25] LABS: Blood Urea Nitrogen 18 mg/dl (7-17); Calcium 8.7 mg/dl (8.4-10.2); Carbon Dioxide 27 mmol/L (22-30); Chloride 96 mmol/L (98-107); Glucose 76 mg/dl (70-99); Potassium 3.7 mmol/L (3.5-5.1); Sodium 132 mmol/L (135-145); eGFR > 60.00
[2025-07-12 11:41] LABS: Vitamin D, 25-OH*** 17.5 ng/mL (30-80)
== END ==
LOC: OLABP 09:38
PROVIDERS: ATTENDING PHYSICIAN Family Medicine
DX: I49.5 Sick sinus syndrome (principal); Z95.0 Presence of cardiac pacemaker; I48.0 Paroxysmal atrial fibrillation; E78.5 Hyperlipidemia, unspecified; I10 Essential (primary) hypertension; R26.2 Difficulty in walking, not elsewhere classified; M81.0 Age-related osteoporosis without current pathological fracture; R29.6 Repeated falls; R06.09 Other forms of dyspnea; F03.90 Unspecified dementia, unspecified severity, without behavioral disturbance, psychotic disturbance, mood disturbance, and anxiety
CPT/HCPCS: 36415; 80048; 82306; 85025

== ENCOUNTER → 2025-07-18 10:39 | Outpatient (REF) | payer OTHER, SELFPAY ==
[2025-07-18 12:37] LABS: Blood Urea Nitrogen 17 mg/dl (7-17); Calcium 8.7 mg/dl (8.4-10.2); Carbon Dioxide 29 mmol/L (22-30); Chloride 101 mmol/L (98-107); Glucose 90 mg/dl (70-99); Potassium 3.8 mmol/L (3.5-5.1); Sodium 134 mmol/L (135-145); eGFR > 60.00
== END ==
LOC: OLABP 10:39
PROVIDERS: ATTENDING PHYSICIAN Family Medicine
DX: I49.5 Sick sinus syndrome (principal); Z95.0 Presence of cardiac pacemaker; I48.0 Paroxysmal atrial fibrillation; E78.5 Hyperlipidemia, unspecified; I10 Essential (primary) hypertension; M81.0 Age-related osteoporosis without current pathological fracture; R29.6 Repeated falls; F03.90 Unspecified dementia, unspecified severity, without behavioral disturbance, psychotic disturbance, mood disturbance, and anxiety; R26.2 Difficulty in walking, not elsewhere classified; M62.81 Muscle weakness (generalized); R06.09 Other forms of dyspnea
CPT/HCPCS: 36415; 80048

== ENCOUNTER → 2025-07-20 17:05 | Outpatient (REF) | payer OTHER, SELFPAY ==
[2025-07-20 18:59] LABS: Urine Character Clear (Clear)
[2025-07-20 19:09] LABS: Urine Red Blood Cell 0-2 /HPF (0-2); Urine White Cell 0-2 /HPF (0-5)
== END ==
LOC: OLABP 17:05
PROVIDERS: ATTENDING PHYSICIAN Family Medicine
DX: I10 Essential (primary) hypertension (principal); M81.0 Age-related osteoporosis without current pathological fracture; R29.6 Repeated falls; F03.90 Unspecified dementia, unspecified severity, without behavioral disturbance, psychotic disturbance, mood disturbance, and anxiety; R26.2 Difficulty in walking, not elsewhere classified; M62.81 Muscle weakness (generalized); R06.09 Other forms of dyspnea; I49.5 Sick sinus syndrome; Z95.0 Presence of cardiac pacemaker; I48.0 Paroxysmal atrial fibrillation; E78.5 Hyperlipidemia, unspecified
CPT/HCPCS: 81003; 81015; 87086

== ENCOUNTER → 2025-07-21 14:00 | Outpatient (REF) | payer OTHER, SELFPAY ==
[2025-07-21 15:46] LABS: Hematocrit 42.1 % (37.0-47.0); Hemoglobin 14.0 g/dL (12.0-16.0); Mean Corp Hgb Conc. 33.3 g/dL (33.0-37.0); Mean Corpuscular Volume 90.1 fL (81.0-99.0); Nucleated Red Blood Cells % 0 %; Platelet Count 265 10^3/uL (130-400); Red Cell Dist. Width 14.1 % (11.5-14.5)
[2025-07-21 15:55] LABS: Blood Urea Nitrogen 12 mg/dl (7-17); Calcium 8.6 mg/dl (8.4-10.2); Carbon Dioxide 28 mmol/L (22-30); Chloride 99 mmol/L (98-107); Glucose 90 mg/dl (70-99); Potassium 4.2 mmol/L (3.5-5.1); Sodium 132 mmol/L (135-145); eGFR > 60.00
== END ==
LOC: OLAB 14:00
PROVIDERS: ATTENDING PHYSICIAN Family Medicine
DX: I49.5 Sick sinus syndrome (principal); Z95.0 Presence of cardiac pacemaker; I48.0 Paroxysmal atrial fibrillation; E78.5 Hyperlipidemia, unspecified; I10 Essential (primary) hypertension; M81.0 Age-related osteoporosis without current pathological fracture; R29.6 Repeated falls; F03.90 Unspecified dementia, unspecified severity, without behavioral disturbance, psychotic disturbance, mood disturbance, and anxiety; R26.2 Difficulty in walking, not elsewhere classified; M62.81 Muscle weakness (generalized); R06.09 Other forms of dyspnea
CPT/HCPCS: 80048; 85025

== ENCOUNTER → 2025-07-23 10:56 | Outpatient (REF) | payer OTHER, SELFPAY ==
[2025-07-23 12:08] LABS: Blood Urea Nitrogen 18 mg/dl (7-17); Calcium 8.7 mg/dl (8.4-10.2); Carbon Dioxide 28 mmol/L (22-30); Chloride 100 mmol/L (98-107); Glucose 87 mg/dl (70-99); Potassium 3.4 mmol/L (3.5-5.1); Sodium 135 mmol/L (135-145); eGFR > 60.00
== END ==
LOC: OLABP 10:56
PROVIDERS: ATTENDING PHYSICIAN Family Medicine
DX: I49.5 Sick sinus syndrome (principal); Z95.0 Presence of cardiac pacemaker; I48.0 Paroxysmal atrial fibrillation; E78.5 Hyperlipidemia, unspecified; I10 Essential (primary) hypertension; M81.0 Age-related osteoporosis without current pathological fracture; R29.6 Repeated falls; F03.90 Unspecified dementia, unspecified severity, without behavioral disturbance, psychotic disturbance, mood disturbance, and anxiety; R26.2 Difficulty in walking, not elsewhere classified; M62.81 Muscle weakness (generalized); R06.09 Other forms of dyspnea
CPT/HCPCS: 36415; 80048

== ENCOUNTER → 2025-07-24 13:12 | Outpatient (REF) | payer OTHER, SELFPAY ==
[2025-07-24 13:31] LABS: Blood Urea Nitrogen 16 mg/dl (7-17); Calcium 8.8 mg/dl (8.4-10.2); Carbon Dioxide 27 mmol/L (22-30); Chloride 103 mmol/L (98-107); Glucose 82 mg/dl (70-99); Potassium 3.7 mmol/L (3.5-5.1); Sodium 135 mmol/L (135-145); eGFR > 60.00
[2025-07-24 18:40] LABS: Urine Character Clear (Clear)
[2025-07-24 18:56] LABS: Urine Red Blood Cell 0-2 /HPF (0-2)
== END ==
LOC: OLABP 13:12
PROVIDERS: ATTENDING PHYSICIAN Family Medicine
DX: I49.5 Sick sinus syndrome (principal); Z95.0 Presence of cardiac pacemaker; I48.0 Paroxysmal atrial fibrillation; E78.5 Hyperlipidemia, unspecified; I10 Essential (primary) hypertension; R26.2 Difficulty in walking, not elsewhere classified; R06.09 Other forms of dyspnea
CPT/HCPCS: 36415; 80048; 81003; 81015; 87086

== ENCOUNTER → 2025-07-30 09:17 | Outpatient (REF) | payer OTHER, SELFPAY ==
[2025-07-30 11:37] LABS: Vitamin D, 25-OH*** 22.6 ng/mL (30-80)
== END ==
LOC: OLABP 09:17
PROVIDERS: ATTENDING PHYSICIAN Internal Medicine
DX: M81.0 Age-related osteoporosis without current pathological fracture (principal); Z79.01 Long term (current) use of anticoagulants; R42 Dizziness and giddiness; I10 Essential (primary) hypertension; I42.2 Other hypertrophic cardiomyopathy; I48.0 Paroxysmal atrial fibrillation; I49.5 Sick sinus syndrome; M25.561 Pain in right knee; I50.33 Acute on chronic diastolic (congestive) heart failure; E87.6 Hypokalemia; F03.90 Unspecified dementia, unspecified severity, without behavioral disturbance, psychotic disturbance, mood disturbance, and anxiety
CPT/HCPCS: 36415; 82306